=== PATIENT | male | born 1950 | race Caucasian/White ===

== ENCOUNTER → 2017-03-27 | Outpatient (CLI) | payer OTHER ==
[~2017-03-27] MED LIST: AMLO-114 PO; ASPI-435 PO; ATOR-26 PO; CLR10 PO; CYAN1SUB12 PO; FLUT0.15 NAE; GUARPOW2 PO; HOME1TAB18 PO; HYDR-5688 PO; LORA-741 PO; LORA10TA44 PO; MULT-506 PO; OPTIRAY 320 IV PRN; PARO30TA5 PO; POTACAP PO; PRAZ5CAP2 PO; PRLSR20 PO; SYMIN160 INH; TIOTCAP INH; VGR25 PO
--- NOTE | 2017-03-27 11:09 | DIAGNOSTIC IMAGING REPORT ---
CT SCAN OF THE CHEST WITH IV CONTRAST CLINICAL HISTORY: Calcified pleural plaque. Reported history of lymphoma. COMPARISON STUDY: Chest CT scans dated 04/12/2016 and 01/22/2012. PET/CT dated 05/03/2015. TECHNIQUE: Following the IV administration of 92 cc of Optiray 320, CT scan of the thorax was performed from the thoracic inlet to the upper abdomen. Images are reviewed in the axial, sagittal, and coronal planes. IV contrast was administered without complication. CT DOSE: 331.19 mGy.cm FINDINGS: Thyroid: Imaged portions of the thyroid gland are normal in size and attenuation. Thoracic aorta: There is mild atherosclerotic calcification of the thoracic aorta, which is normal in caliber and demonstrates standard 3-vessel arch anatomy. No dissection is seen. Pulmonary vasculature: The pulmonary trunk is dilated, measuring 4.1 cm in diameter. This indicates pulmonary artery hypertension. There are no filling defects identified in the central pulmonary vessels to indicate pulmonary embolus. Note that this examination was not protocoled for evaluation of the pulmonary arteries. Heart: The heart is markedly enlarged and without pericardial effusion. The coronary arteries are densely calcified. Lungs and pleural spaces: Advanced emphysema is observed. The appearance remains typical for round atelectasis. There is no lobar consolidation typical for pneumonia. There are small pleural effusions. Curvilinear densities are again seen at both lung bases, best seen on the right on image #193 and on the left on image #175. Foci of linear scarring are observed. Diffuse peribronchial thickening is noted. The trachea and central airways are clear. No calcified pleural plaque is identified as clinically queried. A 6 mm pulmonary nodule is present in the right middle lobe as seen on image #176. This nodule has been present dating back to 2011. Mediastinum: There is mediastinal lymphadenopathy. Prevascular nodes measure up to 2.3 x 1.3 cm as seen on image #85. A high right paratracheal node on image #38 measures 2.5 x 1.2 cm. This is increased from 04/12/2016. Josselyn: Clear. Axillae: There is bilateral axillary and subpectoral lymphadenopathy. The largest nodes are seen in the left axilla and measure up to 2.8 x 1.6 cm. This has increased from 04/12/2016. Upper abdomen: There is a tiny hiatal hernia. The liver appears steatotic. The spleen is normal in size. There is bulky retroperitoneal lymphadenopathy, only partially imaged and surrounding the upper abdominal aorta and the IVC. Enlarged portacaval nodes measure up to 1.9 x 3.9 cm. Skeletal structures: The skeletal structures appear osteopenic. Mild degenerative change is seen throughout the thoracic spine. No lytic or blastic bony lesions are seen. IMPRESSION: 1. There is progressive axillary, mediastinal, and retroperitoneal lymphadenopathy as compared to 04/12/2016. The appearance is consistent with progression of lymphoma. 2. Severe emphysema. 3. Marked cardiomegaly with evidence of pulmonary artery hypertension. 4. Small pleural effusions. There is no airspace consolidation typical for pneumonia. 5. Curvilinear rounded opacities at both lung bases are unchanged dating back to 2011 and typical in appearance for around atelectasis. 6. A 6 mm right middle lobe pulmonary nodule has been present dating back to 2011. 7. Hepatic steatosis. 8. Additional findings as above. Electronically signed by: Keo Mina M.D. 03/27/2017 11:07 AM Dictated Date/Time: 03/27/2017 10:53 AM
== END | disposition home or self-care (01) ==
LOC: C.CTS 10:24
PROVIDERS: ATTEND Internal Medicine Pulmonary Disease
DX: J44.9 Chronic obstructive pulmonary disease, unspecified (principal); J94.8 Other specified pleural conditions; I51.7 Cardiomegaly

== ENCOUNTER → 2017-05-15 | Outpatient (CLI) | payer OTHER ==
[~2017-05-15] MED LIST changes: -OPTIRAY 320 IV PRN
== END | disposition home or self-care (01) ==
LOC: C.CPL 10:10
PROVIDERS: ATTEND Surgery
DX: R59.0 Localized enlarged lymph nodes (principal)

== ENCOUNTER → 2017-05-18 | Outpatient (CLI) | payer OTHER ==
[~2017-05-18] MED LIST changes: -LORA10TA44 PO
[2017-05-18 12:17] LABS: BASO % 0.9 %; BASO ABS # 0.09 K/uL (0-0.2); COMPLETE YES; EOS % 2.7 %; HEMATOCRIT 40.6 % (42-52); IG% 0.7 %; LYMPH ABS # 1.45 K/uL (1.2-3.4); MEAN CELL VOLUME 85.8 fL (80-100); MEAN CORPUSCULAR HEMOGLOBIN 30.9 pg (25-34); MEAN PLATELET VOLUME 9.8 fL (7.4-10.4); NEUT % 66.7 %; PLATELET COUNT 378 K/uL (130-400); RED BLOOD COUNT 4.73 M/uL (4.7-6.1); WHITE BLOOD COUNT 9.64 K/uL (4.8-10.8)
[2017-05-18 12:32] LABS: BLOOD UREA NITROGEN 5 mg/dl (7-18); BUN/CREATININE RATIO 6.2 (10-20); CALCIUM 8.9 mg/dl (8.5-10.1); CARBON DIOXIDE 25 mmol/L (21-32); CHLORIDE 98 mmol/L (98-107); CREATININE 0.85 mg/dl (0.60-1.40); GLUCOSE 91 mg/dl (70-99); POTASSIUM 4.3 mmol/L (3.5-5.1); SODIUM 132 mmol/L (136-145)
== END | disposition home or self-care (01) ==
LOC: C.LAB 10:33
PROVIDERS: ATTEND Surgery
DX: Z01.812 Encounter for preprocedural laboratory examination (principal); R59.0 Localized enlarged lymph nodes

== ENCOUNTER 2017-05-21 05:17 | Day surgery (SDC) | payer OTHER ==
[2017-05-15 16:22] VITALS: BMI 23.0
[~2017-05-21] VITALS: Ht 172.7 cm; Wt 70.9 kg
[~2017-05-21 05:17] MED LIST changes: -HYDR-5688 PO
[2017-05-21 05:35] VITALS: BP 147/66; PULSE 86; TEMP 36.7; O2SAT 97; Ht 172.7 cm; Wt 70.9 kg
[2017-05-21] MEDS ORDERED: CLINDAMYCIN IV 900 MG in DEXTROSE 5% 100ML 100 ML IV SCH (06:00)
[2017-05-21] MEDS ORDERED: LACTATED RINGER'S 1000ML 1,000 ML IV SCH (06:00)
[2017-05-21] MEDS ORDERED: BUPIVACAINE 0.5 % 5 MG/1 ML MPF 30ML VIAL ONE (06:34)
[2017-05-21] MEDS ORDERED: LIDOCAINE HCL 1% 20 ML VIAL ONE (06:34)
[2017-05-21] MEDS ORDERED: MIDAZOLAM HCL 1 MG/ML 2ML VIAL ONE (06:45)
[2017-05-21] MEDS ORDERED: FENTANYL CITRATE INJ 50 MCG/1 ML 2 ML VIAL ONE (06:45)
[2017-05-21] MEDS ORDERED: LIDOCAINE HCL 2% 2 ML VIAL (20MG/ML) ONE (06:47)
[2017-05-21] MEDS ORDERED: PROPOFOL IV EMULSION 10 MG/ML 20 ML VIAL IV ONE (06:47)
--- NOTE | 2017-05-21 06:53 | History & Physical Bridge Note ---
H&P Re-Evaluation Bridge Note: I have examined the patient, reviewed the History & Physical and in the interval since the performance of the History & Physical I have noted the following changes of clinical significance: No changes noted
[2017-05-21 06:55] VITALS: PULSE 72; O2SAT 97
[2017-05-21] MEDS ORDERED: NURSING VERBAL MED ORDER ONE (07:00)
[2017-05-21] MEDS ORDERED: ALBUT/IPRATROP 3MG/0.5MG NEB 3 ML VIAL INH ONE (07:15)
[2017-05-21] MEDS ORDERED: DEXAMETHASONE SOD INJ 4 MG/ML VIAL ONE (07:34)
[2017-05-21] MEDS ORDERED: ONDANSETRON INJ 2 MG/ML 2 ML VIAL ONE (07:34)
--- NOTE | 2017-05-21 07:43 | [facility] Post Operative Brief Note ---
Immediate Operative Summary Operative Date May 21, 2017. Pre-Operative Diagnosis Bilateral Axillary Lymphadenopathy Post-Operative Diagnosis Bilateral Axillary Lymphadenopathy Procedure(s) Performed Right Axillary Lymph Node Biopsy Surgeon Dr. Ac Button Buttonhole Marker Surgeon(s) Tristin Mata PA-C Estimated Blood Loss 5 mL Findings 3x2 cm LN- low axilla Specimens A: Right Axillary Lymph Node Anesthesia gen Complication(s) None Disposition Recovery Room / PACU
[2017-05-21] MEDS ORDERED: HYDR-5688 PO (07:45)
[2017-05-21] MEDS ORDERED: ONDANSETRON INJ 2 MG/ML 2 ML VIAL IV PRN ×2 (07:45→08:30)
[2017-05-21] MEDS ORDERED: HYDROCODONE/ACETAMOPHEN 5/325MG TAB PO PRN ×2 (07:45)
--- NOTE | 2017-05-21 07:48 | Discharge Instructions ---
Discharge Instructions Date of Service May 21, 2017. Visit Reason for Visit: Right Axillary Lymphadenopathy Discharge Discharge Diagnosis / Problem: lymphadenopathy Discharge Goals Goal(s): Decrease discomfort, Improve function, Improve disease control Activity Recommendations Activity Limitations: as noted below Lifting Limitations: no more than 25 pounds Exercise/Sports Limitations: until after follow-up appointment May Resume Sexual Activity: when tolerated Shower/Bathe: tomorrow Driving or Machine Use: resume 1 day after discharge SPECIAL CARE INSTRUCTIONS: * Cover incisions and change daily for comfort/drainage. * May use ibuprofen for pain as tolerated. * Expect some swelling and bruising. Call your doctor if: * Temperature above 101 degrees * Pain not relieved by pain medicine ordered * There is increased drainage or redness from any incision * You have any unanswered questions or concerns [phone]. FOLLOW UP VISIT: If not already scheduled, please call the office for a follow-up visit. for next week- some suture removal OFFICE PHONE NUMBER: Dr. Ac Office Anesthesia . Post Anesthesia Instructions: If you have had General Anesthesia or IV Sedation: * Do not drive today. * Resume driving when surgeon permits. * Do not make important decisions or sign legal documents today. * Call surgeon for: 1. Temperature elevations greater than 101 degrees F. 2. Uncontrollable pain. 3. Excessive bleeding. 4. Persistent nausea and vomiting. 5. Medication intolerance (nausea, vomiting or rash). * For nausea and vomiting use only clear liquids such as: tea, soda, bouillon until nausea subsides, then gradually increase diet as tolerated. * If you have any concerns or questions, call your surgeon's office. If physician is unavailable and it is an emergency, call 911 or go to the nearest emergency room. . Diet Recommendations Recommended Home Diet: resume previous diet Procedures Procedures Performed: Right Axillary Lymph Node Biopsy Pending Studies Studies pending at discharge: no Medical Emergencies . Who to Call and When: Medical Emergencies: If at any time you feel your situation is an emergency, please call 911 immediately. . Non-Emergent Contact Non-Emergency issues call your: Primary Care Provider, Surgeon . . "Provider Documentation" section prepared by Torres Ac. .
--- NOTE | 2017-05-21 08:25 | Anesthesiology Progress Note ---
Anesthesia Post Op Note Date & Time May 21, 2017 at 08:25 Vital Signs Pain Intensity: 0 Vital Signs Past 12 Hours Date Time Temp Pulse Resp B/P (MAP) Pulse Ox O2 Delivery O2 Flow Rate FiO2 05/21/17 08:20 37.1 79 12 129/77 95 Room Air 05/21/17 08:10 78 20 133/71 92 Room Air 05/21/17 08:00 82 18 141/74 94 Room Air 05/21/17 07:50 83 16 120/66 99 Mask 10 05/21/17 07:42 36.9 68 16 118/69 100 Mask 10 05/21/17 06:55 72 14 97 Room Air 05/21/17 05:35 36.7 86 18 147/66 (93) 97 Room Air Notes Mental Status: alert / awake / arousable, participated in evaluation Pt Amnestic to Procedure: Yes Nausea / Vomiting: adequately controlled Pain: adequately controlled Airway Patency, RR, SpO2: stable & adequate BP & HR: stable & adequate Hydration State: stable & adequate Anesthetic Complications: no major complications apparent
[2017-05-21 08:30] VITALS: BP 141/73; PULSE 80; TEMP 36.4; O2SAT 93
[2017-05-21] MEDS ORDERED: ATROPINE SULFATE 0.1 MG/ML 5ML SYR IV PRN ×2 (08:30→08:45)
[2017-05-21] MEDS ORDERED: EpHEDrine SULFATE INJ 50 MG/ML AMP IV PRN ×2 (08:30→08:45)
[2017-05-21] MEDS ORDERED: FENTANYL CITRATE INJ 50 MCG/1 ML 2 ML VIAL IV PRN ×2 (08:30→08:45)
[2017-05-21 08:55] VITALS: BP 136/91; PULSE 85; O2SAT 91
--- NOTE | 2017-05-21 09:18 | OPERATIVE REPORT ---
DATE OF OPERATION: 05/21/2017 NAME OF OPERATION: Right axillary lymph node biopsy. STAFF SURGEON: Dr. Torres Ac. FULLERETTE: Tristin Mata PA-C ANESTHESIA: General. DESCRIPTION OF PROCEDURE: The patient was brought into the operating room and placed on the operating table in supine position. He underwent general anesthesia via an LMA and then using 0.5% plain Marcaine, skin and subcutaneous tissue in the right axilla were anesthetized. Incision was made in the lower axilla, carrying dissection down and identifying a large lymph node, which was excised from surrounding tissue. The vessels and tissue were ligated using 2-0 silk suture. The lymph node was 3 x 2 cm. It was sent for routine pathology. Deep tissue was reapproximated using 2-0 plain catgut suture and then the skin reapproximated using 5-0 Prolene suture. The patient was transferred to recovery room in stable condition. I attest to the content of the Intraoperative Record and any orders documented therein. Any exception s are noted below.
[2017-05-21 09:20] VITALS: BP 131/68; PULSE 84; TEMP 36.7; O2SAT 84
[2017-05-30 12:14] LABS: NEO FISH AP12/MALT1 t(11;18) See Separate Report; NEO FISH BCL1(CCND)IgH t(11;14 See Separate Report; NEO FISH IgH BCL2 t(14;18) See Separate Report; NEO FISH MALT1 (18q21) See Separate Report
== END 2017-05-21 09:29 | disposition home or self-care (01) ==
LOC: C.ACU 05:17
PROVIDERS: ATTEND Surgery
DX: C85.84 Other specified types of non-Hodgkin lymphoma, lymph nodes of axilla and upper limb (principal); J44.9 Chronic obstructive pulmonary disease, unspecified; I25.10 Atherosclerotic heart disease of native coronary artery without angina pectoris; I10 Essential (primary) hypertension; E78.5 Hyperlipidemia, unspecified; F41.9 Anxiety disorder, unspecified; F32.9 Major depressive disorder, single episode, unspecified; F17.200 Nicotine dependence, unspecified, uncomplicated; Z88.0 Allergy status to penicillin; Z88.2 Allergy status to sulfonamides; Z90.89 Acquired absence of other organs; Z79.82 Long term (current) use of aspirin; Z98.890 Other specified postprocedural states; Z68.23 Body mass index [BMI] 23.0-23.9, adult; Z82.49 Family history of ischemic heart disease and other diseases of the circulatory system

== ENCOUNTER → 2017-11-30 | Outpatient (CLI) | payer OTHER ==
[~2017-11-30] MED LIST changes: -AMLO-114 PO; +AMLO10TA3 PO; +OPTIRAY 320 IV PRN
--- NOTE | 2017-11-30 15:21 | DIAGNOSTIC IMAGING REPORT ---
CT OF THE CHEST WITH IV CONTRAST CLINICAL HISTORY: Lymphoma COMPARISON STUDY: March 27, 2017 TECHNIQUE: Following the IV administration of 92 mL of Optiray-320, CT of the thorax was performed from the thoracic inlet to the lung bases. Images are reviewed in the axial, sagittal, and coronal planes. IV contrast was administered without complication. A dose lowering technique was utilized adhering to the principles of ALARA. CT DOSE: FINDINGS: Thyroid: Imaged portions of the thyroid gland are normal in appearance. Thoracic aorta: The thoracic aorta is normal in course and caliber, noting standard 3-vessel arch anatomy. No aneurysm or dissection is seen. Pulmonary vasculature: The pulmonary trunk is normal in caliber. There are no central filling defects identified to suggest pulmonary embolus. Note that this examination was not protocoled for the evaluation of pulmonary emboli. HEART: There are coronary artery calcifications present. The heart is mildly enlarged. Lungs and pleural spaces: There are small bilateral pleural effusions. There is mild lower lobe bronchiectasis. There is pulmonary emphysema. There are by bilateral lower lobe atelectatic changes. A nodular 23 mm focus in the left lower lobe is felt to represent rounded atelectasis. There is a 6 mm right middle lobe solid pulmonary nodule as visualized in image #205/311. This remain stable. Mediastinum: There is persistent mediastinal lymphadenopathy with enlarged prevascular, subcarinal, and paratracheal lymph nodes. The lymph nodes appear minimally larger than on the preceding study. Josselyn: Hilar lymph nodes remain the upper limits of normal in size Axilla: There is bulky bilateral axillary lymphadenopathy slightly increased when compared the preceding study Upper abdomen: There is a stable 1 cm hypodensity within the left lobe of the liver Skeletal structures: There are no lytic or blastic osseous lesions. IMPRESSION: 1. Slight increase in the bilateral axillary and mediastinal lymphadenopathy 2. Small bilateral pleural effusions 3. Emphysema 4. Bibasilar atelectasis 5. Stable solid 6 mm right middle lobe pulmonary nodule Electronically signed by: Maynor Albright M.D. 11/30/2017 3:19 PM Dictated Date/Time: 11/30/2017 3:10 PM
--- NOTE | 2017-11-30 15:23 | DIAGNOSTIC IMAGING REPORT ---
ABD/PELVIS IV AND ORAL CONT CLINICAL HISTORY: 67 years-old Male presenting with SLL. TECHNIQUE: Multidetector CT of the abdomen and pelvis was performed after the administration of oral and intravenous contrast. IV contrast: 92 mL of Optiray 320. A dose lowering technique was used consistent with the principles of ALARA (as low as reasonably achievable). COMPARISON: PET/CT from 05/03/2015. CT DOSE (mGy.cm): The estimated cumulative dose is 735.75 mGy.cm. FINDINGS: Keg Washer topogram: Unremarkable. Lung bases: Architectural distortion of the left lower lobe with paramediastinal and dependent consolidation and volume loss. Dependent consolidation volume loss also noted in the right lower lobe with possible focal bronchiectasis. This is similar in appearance to prior exam in March and suggestive of rounded atelectasis. Top normal heart size. Coronary artery calcification. Trace bilateral pleural effusions or pleural thickening. No pericardial effusion. Liver: Normal liver morphology. Focal hypodensity at the left hepatic dome, indeterminate but unchanged and likely hepatic cysts. Patent hepatic vasculature. Biliary: No intrahepatic or extrahepatic biliary ductal dilatation. Gallbladder decompressed. Pancreas: Normal. Spleen: Normal. Adrenal glands: Normal. Kidneys and ureters: Normal renal parenchyma. Bilateral extrarenal pelvises. Mild urothelial thickening. No hydronephrosis or hydroureter. No nephrolithiasis. Bladder: Mild circumference of bladder wall thickening. Pelvic organs: Prostate enlargement likely secondary to benign prostatic hyperplasia. Bowel: Normal appendix. No bowel obstruction. Significant gastric wall thickening suggested along the body of the stomach. Peritoneal cavity: No free fluid or intraperitoneal gas. Lymph nodes: Significant retroperitoneal lymphadenopathy with encasement of the aorta, which remains patent. Encasement of the bilateral common iliac arteries. Significant common and external iliac and inguinal lymphadenopathy. Comparing to the noncontrast PET/CT from 2014, this has significantly progressed. This also appears slightly progressed in comparison to the prior chest CT, which partially visualized the upper abdomen. Vasculature: Atherosclerosis of the normal caliber abdominal aorta. IVC narrow. Encasement of the aorta. Venous structures are rather poorly opacified limiting evaluation. The IVC may also be case. Abdominal wall: Small fat-containing umbilical hernia. Musculoskeletal: Degenerative changes of the spine. IMPRESSION: 1. Significant interval progression of diffuse lymphadenopathy since the prior PET/CT in 2014 and suggestion of slight interval progression of disease in comparison to the prior chest CT from March 2017. 2. Significant gastric wall thickening, however, this finding is not significantly different than 2015. This may be due to underdistention or gastritis rather than lymphomatous involvement. 3. Urothelial thickening bilaterally could suggest upper tract involvement of infectious cystitis or chronic reflux/chronic inflammatory change. Bladder wall thickening could also be due to cystitis versus chronic outlet obstruction in the setting of prostatomegaly. Correlate with urinalysis. Electronically signed by: Enio Trejo M.D. 11/30/2017 3:22 PM Dictated Date/Time: 11/30/2017 3:10 PM
== END | disposition home or self-care (01) ==
LOC: C.CTS 14:24
PROVIDERS: ATTEND Internal Medicine Hematology & Oncology
DX: C83.08 Small cell B-cell lymphoma, lymph nodes of multiple sites (principal); J90 Pleural effusion, not elsewhere classified; J43.9 Emphysema, unspecified; R91.1 Solitary pulmonary nodule

== ENCOUNTER 2019-02-04 05:26 | Inpatient (IN) ==
--- NOTE | 2019-01-31 13:25 | Anesthesiology Consultation ---
Date of Service January 31, 2019 Assessment & Plan (1) Encounter for pre-operative examination: Chart Review Chart Review: Acceptable Risk for Surgery and Patient NOT seen in Pre Admission Testing Consults Requested none History Surgery Operation Date: 02/04/19 07:30 Proposed Procedures p Navigational Bronchoscopy with Fiducial Markers and Dye, - Jeremy Myers MD, FACS s Left Upper Lobe Wedge Resection with Frozen Section, Possible Robot Assisted Thoracoscopic Left Upper Lobectomy with Mediastinal Lymphadenectomy - Jeremy Myers MD, FACS Height/Weight Height: 5 ft 8 in Weight: 68.492 kg Allergies Allergy/AdvReac Type Severity Reaction Status Date / Time Penicillins Allergy Mild NECK Verified 01/31/19 10:34 SWELLS, RASH Sulfa (Sulfonamide Allergy Mild RASH Verified 01/31/19 10:34 Antibiotics) Medications Home Medications Medication Instructions Recorded Confirmed Last Taken Spiriva with HandiHaler 1 cap INHALATION [facility] 12/17/18 01/31/19 12/26/18 04:30 Symbicort 2 puff INHALATION BID 12/17/18 01/31/19 12/26/18 04:30 amlodipine 10 mg PO 12/17/18 01/31/19 12/25/18 20:00 aspirin [Aspir-81] 81 mg PO [facility] 12/17/18 01/31/19 12/25/18 13:00 atorvastatin 80 mg PO 12/17/18 01/31/19 12/25/18 20:00 calcium polycarbophil [Fiber 1 tab PO [facility] 12/17/18 01/31/19 12/25/18 13:00 (calcium polycarbophil)] cyanocobalamin (vitamin B-12) 2,500 mcg PO [facility] 12/17/18 01/31/19 12/25/18 13:00 fluticasone [Flonase Allergy 2 spray INTRANASAL [facility] 12/17/18 01/31/19 12/25/18 13:00 Relief] loratadine 10 mg PO [facility] 12/17/18 01/31/19 12/25/18 13:00 lorazepam [Ativan] 0.5 mg PO BID PRN 12/17/18 01/31/19 Unknown multivitamin 1 tab PO [facility] 12/17/18 01/31/19 12/25/18 13:00 omeprazole 40 mg PO QAM 12/17/18 01/31/19 12/25/18 13:00 paroxetine HCl 30 mg PO QAM 12/17/18 01/31/19 12/25/18 13:00 potassium 99 mg PO HS 12/17/18 01/31/19 12/25/18 13:00 prazosin 5 mg PO HS 12/17/18 01/31/19 12/25/18 20:00 tramadol [Ultram] 50 mg PO QID PRN #18 tab 12/26/18 01/31/19 Unknown Past Medical History Medical History ASCVD (arteriosclerotic cardiovascular disease) Anxiety BPH (benign prostatic hyperplasia) CAD (coronary artery disease) Cancer SMALL B-CELL LYMPHOMA CHRONIC LYMPHOCYCTIC LEUKEMIA Chronic obstructive pulmonary disease GERD (gastroesophageal reflux disease) Hyperlipidemia Hypertension Migraine HX Osteoarthritis Post traumatic stress disorder SOB (shortness of breath) on exertion Past Surgical History Surgical History Encounter for biopsy AXILLARY H/O cervical spine surgery PLATES AND SCREWS History of bronchoscopy History of colonoscopy History of tonsillectomy History of tooth extraction Ulnar nerve entrapment SURGERY R/L Social History Smoking Status: Current every day smoker tobacco type: cigarettes Smoking cigarettes per day: 20 CIG DAILY Do You Dip or Chew Tobacco: No Hx Alcohol Use: Yes Alcohol type: beer alcohol intake frequency: 3 or more drinks per day Alcohol Intake Frequency Comment: 18 BEERS DAILY Hx Substance Use: No substance use type: does not use Testing Electrocardiogram Date: 12/12/18 Findings: + ST @ (106) Possible left atrial enlargement. Left axis deviation. When compared with ECG of 05/15/17, no significant change was found. Other Testing CT OF THE CHEST WITH IV CONTRAST 12/03/18 CLINICAL HISTORY: Chronic lymphocytic leukemia COMPARISON STUDY: 11/30/2017 TECHNIQUE: Following the IV administration of 94 mL of Optiray-320, CT of the thorax was performed from the thoracic inlet to the lung bases. Images are reviewed in the axial, sagittal, and coronal planes. IV contrast was administered without complication. A dose lowering technique was utilized adhering to the principles of ALARA. CT DOSE: 260.44 mGy.cm FINDINGS: Thyroid: Imaged portions of the thyroid gland are normal in appearance. Thoracic aorta: The ascending thoracic aorta measures 36 mm diameter. No intimal flaps are visualized. Pulmonary vasculature: The pulmonary trunk is normal in caliber. There are no central filling defects identified to suggest pulmonary embolus. Note that this examination was not protocoled for the evaluation of pulmonary emboli. HEART: There are coronary artery calcifications present. Lungs and pleural spaces: There are small bilateral pleural effusions. There are dependent airspace opacities, likely atelectatic. There is severe pulmonary emphysema. There is an new/enlarging bilobed irregular marginated 14 x 7 mm left upper lobe pulmonary nodule. There is mild associated pleural tenting. Neoplasm must be considered. Pulmonary consultation is recommended in follow-up. A PET/CT scan may be of benefit. In addition there are new nodular airspace opacities within the posterior aspect of the right upper lobe. An inflammatory over neoplastic etiology is favored. This area should be reevaluated on subsequent scans. There is a stable 5 mm right middle lobe pulmonary nodule. There is a new indeterminate solid 6 mm right upper lobe pulmonary nodule. Mediastinum: There is slight interval increase in the pathologic mediastinal lymphadenopathy. An index right paratracheal lymph node currently measures 26 x 16 mm. This previously measured 17 x 15 mm. Josselyn: Hilar lymph nodes are the upper limits of normal in size. Axilla: There is slight increase in the pathologic bilateral axillary lymphadenopathy. An index left axillary lymph node measures 40 x 23 mm. This appears a measured 35 x 18 mm. Upper abdomen: There is a partially visualized upper abdominal lymphadenopathy. Skeletal structures: There are no lytic or blastic osseous lesions. IMPRESSION: 1. Slight increase in the bilateral axillary and mediastinal lymphadenopathy 2. Severe emphysema 3. Persistent basilar atelectasis 4. Persistent small pleural effusions 5. New/enlarging irregular marginated solid bilobed 14 x 7 mm left upper lobe pulmonary nodule, with associated pleural tenting. Neoplasm must be considered. 6. New indeterminate solid 6 mm right upper lobe pulmonary nodule. 7. New nodular airspace opacities within the posterior aspect of the right upper lobe. Although nonspecific and infectious/inflammatory etiology is favored over neoplasm. Imaging follow-up is recommended 8. Pulmonary consultation is recommended, given the new/enlarging irregular marginated 14 x 7 mm left upper lobe pulmonary nodule, and the new solid 6 mm right upper lobe pulmonary nodule. PET/CT scan might be of benefit in follow-up.
[2019-02-04] MEDS ORDERED: LR 15ML/HR IV SCH (06:00)
[2019-02-04] MEDS ORDERED: MIDAZOLAM HCL 1 MG/ML 2ML VIAL ONE ×2 (06:41→07:58)
[2019-02-04] MEDS ORDERED: fentaNYL citrate 100 MCG/2 ML VIAL ONE ×2 (06:42→07:58)
--- NOTE | 2019-02-04 06:59 | History & Physical Bridge Note ---
Date of Service February 04, 2019 History & Physical Bridge Note I have examined the patient, reviewed the History & Physical and in the interval since the performance of the History & Physical I have noted the following changes of clinical significance: no changes noted
[2019-02-04] MEDS ORDERED: BUPIVACAINE LIPOSOME 1.3% 266 MG/20 ML VIAL ONE (07:04)
[2019-02-04] MEDS ORDERED: BUPIVACAINE 0.5 % 5 MG/1 ML MPF 30ML VIAL ONE (07:04)
[2019-02-04] MEDS ORDERED: SODIUM CHLORIDE 0.9% PF 50 ML VIAL ONE (07:04)
[2019-02-04] MEDS ORDERED: ATROPINE SULFATE 0.1 MG/ML 10ML SYR IV PRN (07:40)
[2019-02-04] MEDS ORDERED: KETOROLAC TROMETHAMINE 15 MG/ML VIAL IV PRN (07:40)
[2019-02-04] MEDS ORDERED: ONDANSETRON INJ 2 MG/ML 2 ML VIAL IV PRN ×2 (07:40→13:49)
[2019-02-04] MEDS ORDERED: HYDROmorphone INJ 1 MG/ML SYRINGE IV PRN (07:40)
[2019-02-04] MEDS ORDERED: ALBUTEROL 0.083% NEBU SOLN 3 ML VIAL INH PRN (07:40)
[2019-02-04] MEDS ORDERED: LABETALOL HCL IV 5 MG/ML 20ML IV PRN (07:40)
[2019-02-04] MEDS ORDERED: INDOCYANINE GREEN 25 MG/10 ML INJ ONE (07:42)
[2019-02-04] MEDS ORDERED: CLINDAMYCIN 600 MG in DEXTROSE 5% 50 ML IV SCH (07:45)
[2019-02-04] MEDS ORDERED: PHENYLEPHRINE 100MCG/ML 5ML SYR ONE ×2 (09:26→09:52)
[2019-02-04] MEDS ORDERED: ePHEDrine sulfate 50 MG/ML SYR ONE (09:26)
[2019-02-04] MEDS ORDERED: DEXAMETHASONE SOD INJ 4 MG/ML VIAL ONE (09:26)
[2019-02-04] MEDS ORDERED: ROCURONIUM BROMIDE 10 MG/ML 5 ML VIAL ONE (09:26)
[2019-02-04] MEDS ORDERED: LIDOCAINE HCL 2% 2 ML VIAL/AMP(20MG/ML) INFIL ONE (09:26)
[2019-02-04] MEDS ORDERED: PROPOFOL IV EMULSION 10 MG/ML 20 ML VIAL IV ONE (09:26)
[2019-02-04] MEDS ORDERED: ONDANSETRON INJ 2 MG/ML 2 ML VIAL ONE (09:26)
[2019-02-04] MEDS ORDERED: LARYING-O-JET KIT (LTA) ONE (09:26)
[2019-02-04] MEDS ORDERED: PHENYLEPHRINE HCL 10 MG/ML VIAL ONE (09:27)
[2019-02-04] MEDS ORDERED: GLYCOPYRROLATE 0.2 MG/ML VIAL ONE (10:42)
[2019-02-04] MEDS ORDERED: NEOSTIGMINE METHYLSULFATE 5 MG/5 ML SYR ONE (10:42)
[2019-02-04] MEDS ORDERED: PROGEL PLEURAL AIR LEAK SEALAN 4ML TOP ONE (10:46)
--- NOTE | 2019-02-04 11:20 | Fluoroscopy Report ---
FL chest 1V frontal CLINICAL HISTORY: NAVIGATIONAL BRONCH WITH FIDUCIAL MARKERS COMPARISON STUDY: None FLUOROSCOPY TIME: 28 seconds NUMBER OF FLUOROSCOPIC IMAGES: 2 FINDINGS: Image intensifier assistance for navigational bronchoscopy IMPRESSION: Image intensifier assistance for navigational bronchoscopy. The above report was generated using voice recognition software. It may contain grammatical, syntax or spelling errors. Electronically signed by: Jimmie Kaur M.D. 02/04/2019 11:18 AM
--- NOTE | 2019-02-04 11:43 | Post Operative Brief Note ---
Immediate Post Op Note v1 Date of Surgery February 04, 2019 Pre & Post Diagnosis Operation Date: 02/04/19 07:30 Pre-Op Diagnosis: Left upper lobe mass Post-Op Diagnosis: Non-small cell lung carcinoma Procedure Operation Date: 02/04/19 07:30 Actual Procedures p Navigational Bronchoscopy with Indocyanine dye marking - Jeremy Myers MD, FACS s Thoracoscopic Left Upper Lobe Wedge Resection with Frozen Section, extensive lysis of adhesions(Left) - Jeremy Myers MD, FACS Surgeon Jeremy Myers MD, FACS Long Filler Cigar Roller Machine [employer]az CHÁVEZ Estimated Blood Loss 450 Findings Consistent with Post-Op Diagnosis Drains Chest Tube and Shafer Catheter
[2019-02-04] MEDS ORDERED: METOCLOPRAMIDE HCL INJ 5 MG/ML 2 ML VIAL IV ONE (12:15)
--- NOTE | 2019-02-04 13:13 | XRay Report ---
SINGLE VIEW CHEST CLINICAL HISTORY: Status post left upper lobe wedge resection. FINDINGS: An AP, portable, upright chest radiograph is compared to study dated 12/26/2018 and correlat ed with chest CT dated 12/03/2018. The examination is degraded by portable technique and patient rotati on. The heart is mildly enlarged and there is atherosclerotic calcification of the thoracic aorta. T here is mild congestion of the central pulmonary vasculature. Advanced emphysema and chronic intersti tial thickening are similar to previous. Suture material projects over the left upper lung, and there is volume loss from left-sided pulmonary resection. Patchy airspace consolidation is seen in the lef t midlung and there are small pleural effusions. A chest tube is present at the left apex. There is a trace left apical pneumothorax. The bony thorax is grossly intact. Subcutaneous emphysema is noted i n the left lower neck and along left chest wall. Fusion hardware is noted in the lower cervical spine . IMPRESSION: 1. There is postoperative change and volume loss consistent with left-sided pulmonary resection. 2. A left atypical chest tube is in place. There is a trace left pneumothorax. 3. Cardiomegaly and advanced emphysema. Mild pulmonary vascular congestion is observed. 4. Patchy airspace consolidation is seen in the left midlung and there are small pleural effusions. Electronically signed by: Keo Mina M.D. 02/04/2019 1:11 PM
--- NOTE | 2019-02-04 13:32 | Anesthesiology Progress Note ---
Date of Service February 04, 2019 Anesthesia Post Procedure Vital Signs Vital Signs: Temp Pulse Pulse Resp BP BP Pulse Ox 02/04/19 13:25 94 H 19 114/63 97 02/04/19 13:20 93 H 20 119/63 97 02/04/19 13:15 96 H 17 118/62 97 02/04/19 13:10 94 H 20 115/61 97 02/04/19 13:05 100 H 14 111/63 96 02/04/19 13:01 36.6 C 97 02/04/19 13:00 96 H 15 118/61 97 02/04/19 12:55 92 H 19 123/63 97 02/04/19 12:50 92 H 20 115/62 97 02/04/19 12:45 92 H 20 122/61 98 02/04/19 12:40 93 H 19 109/56 L 92 02/04/19 12:35 92 H 23 99/63 L 92 02/04/19 12:30 94 H 18 101/55 L 92 02/04/19 12:25 95 H 22 103/59 L 97 02/04/19 12:20 96 H 21 98/59 L 98 02/04/19 12:15 97 H 22 98/62 L 98 02/04/19 12:10 99 H 18 94/51 L 100 02/04/19 12:08 100 H 22 78/50 L 96 02/04/19 12:06 101 H 20 77/51 L 96 02/04/19 06:33 36.9 C 83 18 143/78 H 93 Pain Intensity Left Chest: Pain Intensity: 0 Notes Mental Status: alert / awake / arousable Patient Amnestic to Procedure: Yes Nausea / Vomiting: adequately controlled Pain: adequately controlled Airway Patency, RR, SpO2: stable & adequate BP & HR: stable & adequate Hydration State: stable & adequate Anesthetic Complications: no major complications apparent
[2019-02-04] MEDS ORDERED: LORazepam 1 MG/2 ML VIAL IV PRN (13:49)
[2019-02-04] MEDS ORDERED: MoRPHine SULFATE 2 MG/ML CARP IV PRN (13:49)
[2019-02-04] MEDS ORDERED: chlordiazePOXIDE ALCOHOL WITHDRAWL 25MG PO STA (15:46)
[2019-02-04] MEDS: D5W AND 1/2NSS 1,000 ML IV SCH (16:36)
[2019-02-04] MEDS: ACETAMINOPHEN 1,000 MG/100 ML VIAL IV SCH ×2 (16:38→21:50)
[2019-02-04] MEDS: METOCLOPRAMIDE HCL INJ 5 MG/ML 2 ML VIAL IV SCH ×2 (16:39→21:51)
[2019-02-04] MEDS: chlordiazePOXIDE HCl 25 MG CAP PO SCH ×2 (16:42→21:50)
[2019-02-04] MEDS: BEER 1 CAN PO SCH (20:23)
[2019-02-04] MEDS: ATORVASTATIN 40 MG TAB PO SCH (20:24)
[2019-02-04] MEDS: DOCUSATE SODIUM 100 MG CAP PO SCH (20:24)
[2019-02-04] MEDS: AMLODIPINE BESYLATE 5 MG TAB PO SCH (20:25)
[2019-02-04] MEDS: PRAZOSIN HCL 1 MG CAP PO SCH (20:26)
[2019-02-04] MEDS: BUDESONIDE/FORMOTEROL FUMARATE 160/4.5 60 PUFFS/INHALER INH SCH (20:28)
[2019-02-04] MEDS ORDERED: NON-FORMULARY MEDICATION (Potassium 99 MG) PO SCH (21:00)
--- NOTE | 2019-02-05 | Operative Report ---
DATE OF OPERATION: 02/04/2019 PREOPERATIVE DIAGNOSES: 1. Hypermetabolic mass, left upper lobe. 2. Small cell leukemia. 3. A very small cell lymphoma. 4. Active cigarette smoking POSTOPERATIVE DIAGNOSES: 1. Non-small cell carcinoma left upper lobe. 2. Small cell lymphoma, although input for: 3. Active cigarette smoking. PROCEDURES: 1. Electromagnetic navigational bronchoscopy with marking of left upper lobe mass with indocyanine green dye. 2. Left thoracoscopy with extensive decortication. 3. Wedge resection, left upper lobe mass. SURGEON: Jeremy Myers MD OCCUPATIONAL NURSE: KYLER Chauhan (Truman Hansel was present for the entire case and was instrumental holding the instruments). ANESTHESIA: General anesthesia with endotracheal intubation using double lumen tube. INDICATIONS OF PROCEDURE AND FINDINGS: Yordan Lomas is an interesting 69-year-old with a known history of lymphoma and active cigarette smoking and alcohol use who presented with hypermetabolic mass in his left upper lobe, which was concerning. We had a long talk about this at our multidisciplinary cancer conference and elected to proceed with a mediastinoscopy, which I performed back in 12/26/2018 which showed no evidence of carcinoma, although he did have the small cell lymphoma. The patient continues to smoke and also has chronic sinus drainage. I saw him, but rather than proceed with the surgery, he have a couple of weeks of antibiotics and steroids and the sinus has cleared up nicely. He was seen by Yamileth Quinn PA-C. I brought him into the operating room today on 02/04/2019 with the intention of doing a navigational bronchoscopy with marking using ICG dye and then doing a robotic wedge resection guided by the ICG dye and fluorescence. Unfortunately, the patient had such adhesions, we did not do this. Upon opening the chest, it was extremely difficult to even get in. We also had some holes in the lung. This was an arduous 2 hours to take down adhesions and we finally were able to do this. I wedged out a portion of the upper lobe and actually had a portion of the lower lobe with it as well as another portion of the upper lobe to control an air leak. We lost about 450 mL of blood from oozing from both the lung injuries and the chest wall. Frozen section showed this to be a small focus of non-small cell lung carcinoma. We had clean margins. We had already been working for 3 hours. I did not think that doing a lobectomy was going to be in the patient's best interest. He was having some issues with his pressure and was on vasopressors. I elected to stop after the wedge resection. We did an Exparel block and left the chest tube, There was a moderate air leak. He was extubated in the room without difficulty. DESCRIPTION OF PROCEDURE: The patient brought to operating room and laid in supine position. General anesthesia induced. Endotracheal intubation was performed with a single lumen tube. After that had been positioned, I placed the fiberoptic bronchoscope down and closely inspected each of the airways and suctioned out some whitish sputum. We then put the navigational probe down and then registered all of his airways. I then went down into the right upper lobe and went out to this area and injected 1 mL of ICG dye with 1 mL of air. We then removed this without difficulty. This only took a few minutes. He was then switched over to a double lumen tube and we turned him into the right lateral decubitus position. He had been given prophylactic antibiotics prior to starting. After another timeout had been called (one had been called before our bronchoscopy). We then prepared him for surgery. Using a 5-mm port just anterior to mid axillary line about the eighth interspace, I entered the chest cavity with a 5 mm port, and upon placing the scope, it could be seen that we had gone into the lung. I carefully dissected this out as I was able to get into a small plane with the camera and made a small space. I then made my port site just big enough for a thin Kitner and I was able to take down some of the adhesions around this. I finally got enough freed up so, I was able to get a second port in about 10 cm lateral and with these 2 I was able to take down these adhesions, although it was extremely arduous. The lung was markedly adherent to the chest wall. I finally was able to take down all the adhesion, but this took a good 2 hours and it oozed from both the parenchymal tears as well as the chest wall despite our attempts with controlled bleeding with cautery and with packs. Finally able to separate the lobes. We did not use the ICG dye as we did not have the fluorescence on the thoracoscope and I did not want to cut the robot as we had already done so much just thoracoscopically. I finally just wedged out a large section of the upper lobe as well as a smaller segment of the joining lower lobe and then another segment of the upper lobe to control an air leak. We then delivered this off the field using an Endobag. While waiting for this, we performed an Exparel block using 266 mg of Exparel with 30 mL of 0.25% bupivacaine and 250 mL of normal saline. The solution has been used to inject each of the 4 port sites as we had made another port site down closer to the diaphragm more posteriorly and another more anteriorly. After placing these ports, we were able to take all of these adhesions down and do the stapling. The Exparel was then used to perform a block from the second to eleventh interspace although the pleura was so thick it was difficult. We controlled all bleeding at this time and there was a moderate air leak. This is due more to denuded areas and not really an area we could repair. We did inject Progel over all of these areas. When the frozen section came back as a non-small cell lung carcinoma, we had clean margins. I elected to stop given the difficulties, which had beset us and the fact that he has already been on the table for more than 3 hours. The 24-Divehi chest tube was placed in the anterior thoracoscopy port and directed towards the apex and sutured with heavy silk suture. The larger ports and the muscle layers closed with 0 Vicryl and 4-0 Monocryl was used in running subcuticular fashion to approximate the wound edges. He was extubated in the room and tolerated it well. I attest to the content of the Intraoperative Record and any orders documented therein. Any exceptions are noted below. LIBBYD
[2019-02-05] MEDS: D5W AND 1/2NSS 1,000 ML IV SCH (01:48)
[2019-02-05] MEDS: chlordiazePOXIDE HCl 25 MG CAP PO SCH ×3 (03:29→16:21)
[2019-02-05] MEDS: METOCLOPRAMIDE HCL INJ 5 MG/ML 2 ML VIAL IV SCH (06:00)
[2019-02-05] MEDS: ACETAMINOPHEN 1,000 MG/100 ML VIAL IV SCH ×2 (06:00→13:59)
[2019-02-05 06:18] LABS: Basophils # (auto) 0.02 K/uL (0-0.2); Basophils % (auto) 0.2 %; Eosinophils # (auto) 0.02 K/uL (0-0.5); Eosinophils % (auto) 0.2 %; Hemoglobin 8.9 g/dL (14.0-18.0); Immature Granulocytes # (auto) 0.05 K/uL (0.00-0.02); Immature Granulocytes % (auto) 0.4 %; Lymphocytes # (auto) 1.68 K/uL (1.2-3.4); Lymphocytes % (auto) 15.1 %; Mean Corpuscular Volume 82.1 fL (80-100); Monocytes # (auto) 1.24 K/uL (0.11-0.59); Monocytes % (auto) 11.1 %; Neutrophils # (auto) 8.15 K/uL (1.4-6.5); Platelet Count 324 K/uL (130-400); RDW Coefficient of Variation 15.1 % (11.5-14.5); RDW Standard Deviation 44.9 fL (36.4-46.3); Red Blood Count 3.29 M/uL (4.7-6.1); White Blood Count 11.16 K/uL (4.8-10.8)
[2019-02-05 06:35] LABS: BUN Creatinine Ratio 13.8 (10-20); Calcium 7.6 mg/dl (8.5-10.1); Creatinine Clr Calc Pharmacy 87.1 ml/min; Est GFR (African American) 109.2; Est GFR (Non-African American) 94.3; Potassium 3.8 mmol/L (3.5-5.1)
[2019-02-05 06:41] LABS: Prothrombin Time 10.3 Seconds (9.0-12.0)
[2019-02-05 07:05] LABS: RBC Morphology Unremarkable
--- NOTE | 2019-02-05 07:17 | XRay Report ---
XR chest 1V portable CLINICAL HISTORY: JANNETH wedge resection COMPARISON STUDY: 02/04/2019 FINDINGS: There is increasing left-sided subcutaneous emphysema. A left-sided chest tube is again vis ualized. There is a 5 mm left apical pneumothorax. There are mild left mid and lower lung zone airspa ce opacities. There is small right pleural effusion. There is no focal parenchymal consolidation on t he right. There are postsurgical changes in the lower cervical spine.[ IMPRESSION: 1. Increasing left-sided subcutaneous emphysema 2. 5 mm left apical pneumothorax 3. Persistent left mid and lower lung zone airspace opacities 4. Small right pleural effusion Electronically signed by: Maynor Albright M.D. 02/05/2019 7:16 AM
[2019-02-05] MEDS: BEER 1 CAN PO SCH ×5 (08:29→20:26)
[2019-02-05] MEDS: CYANOCOBALAMIN 500 MCG TABLET (VITAMIN B-12) PO SCH (08:30)
[2019-02-05] MEDS: ASPIRIN 81 MG ECTAB PO SCH (08:30)
[2019-02-05] MEDS: PANTOprazole 40 MG TAB PO SCH (08:30)
[2019-02-05] MEDS: MULTIVITAMIN TAB PO SCH (08:30)
[2019-02-05] MEDS: CALCIUM POLYCARBOPHIL 625MG TAB PO SCH (08:30)
[2019-02-05] MEDS: DOCUSATE SODIUM 100 MG CAP PO SCH ×2 (08:30→20:28)
[2019-02-05] MEDS: FOLIC ACID 1 MG TAB PO SCH (08:31)
[2019-02-05] MEDS: LORATADINE 10 MG TAB PO SCH (08:31)
[2019-02-05] MEDS: PARoxetine HCl 20 MG TAB PO SCH (08:31)
[2019-02-05] MEDS: THIAMINE HCL 100 MG TAB PO SCH (08:31)
[2019-02-05] MEDS: FLUTICASONE PROPIONATE NA SPR 16 GM BTL SCH (08:32)
[2019-02-05] MEDS: BUDESONIDE/FORMOTEROL FUMARATE 160/4.5 60 PUFFS/INHALER INH SCH ×2 (08:34→20:30)
[2019-02-05] MEDS: TIOTROPIUM BROMIDE 5 PUFF/90 MCG INH INH SCH (08:35)
[2019-02-05] MEDS: ENOXAPARIN INJ 40 MG/0.4 ML SYR SQ SCH (08:40)
--- NOTE | 2019-02-05 11:26 | Anesthesiology Progress Note ---
Date of Service February 05, 2019 Anesthesia Post Procedure Vital Signs Vital Signs: Temp Pulse Pulse Resp BP BP BP 02/05/19 07:56 36.6 C 84 18 105/61 02/05/19 07:39 36.7 C 86 18 110/66 02/05/19 06:03 02/05/19 03:48 37.0 C 84 18 117/64 02/05/19 01:45 37.0 C 86 18 108/61 02/04/19 23:40 37.0 C 89 16 96/51 L 02/04/19 21:52 37.0 C 96 H 17 99/52 L 02/04/19 19:45 37.1 C 91 H 18 115/63 02/04/19 18:50 99 H 18 119/66 02/04/19 16:45 36.8 C 93 H 14 99/62 L 02/04/19 15:45 37.0 C 98 H 12 114/68 02/04/19 15:00 36.6 C 110 H 14 99/63 L 02/04/19 14:23 36.4 C L 98 H 14 116/67 02/04/19 13:25 94 H 19 114/63 02/04/19 13:20 93 H 20 119/63 02/04/19 13:15 96 H 17 118/62 02/04/19 13:10 94 H 20 115/61 02/04/19 13:05 100 H 14 111/63 02/04/19 13:01 36.6 C 02/04/19 13:00 96 H 15 118/61 02/04/19 12:55 92 H 19 123/63 02/04/19 12:50 92 H 20 115/62 02/04/19 12:45 92 H 20 122/61 02/04/19 12:40 93 H 19 109/56 L 02/04/19 12:35 92 H 23 99/63 L 02/04/19 12:30 94 H 18 101/55 L 02/04/19 12:25 95 H 22 103/59 L 02/04/19 12:20 96 H 21 98/59 L 02/04/19 12:15 97 H 22 98/62 L 02/04/19 12:10 99 H 18 94/51 L 02/04/19 12:08 100 H 22 78/50 L 02/04/19 12:06 101 H 20 77/51 L Pulse Ox 02/05/19 07:56 97 02/05/19 07:39 94 02/05/19 06:03 92 02/05/19 03:48 94 02/05/19 01:45 94 02/04/19 23:40 93 02/04/19 21:52 91 02/04/19 19:45 93 02/04/19 18:50 97 02/04/19 16:45 96 02/04/19 15:45 97 02/04/19 15:00 94 02/04/19 14:23 95 02/04/19 13:25 97 02/04/19 13:20 97 02/04/19 13:15 97 02/04/19 13:10 97 02/04/19 13:05 96 02/04/19 13:01 97 02/04/19 13:00 97 02/04/19 12:55 97 02/04/19 12:50 97 02/04/19 12:45 98 02/04/19 12:40 92 02/04/19 12:35 92 02/04/19 12:30 92 02/04/19 12:25 97 02/04/19 12:20 98 02/04/19 12:15 98 02/04/19 12:10 100 02/04/19 12:08 96 02/04/19 12:06 96 Pain Intensity Left Chest: Pain Intensity: 0 Notes Mental Status: alert / awake / arousable and participated in evaluation Patient Amnestic to Procedure: Yes Nausea / Vomiting: adequately controlled Pain: adequately controlled Airway Patency, RR, SpO2: stable & adequate BP & HR: stable & adequate Hydration State: stable & adequate Anesthetic Complications: no major complications apparent
--- NOTE | 2019-02-05 19:32 | Progress Note ---
DATE: 02/05/2019 Mr. Lomas is seen one day status post an extremely difficult case. We did a thoracoscopic lysis of adhesions, a wedge resection of a non-small cell left upper lobe cancer. His x-ray looks good except for the fact that he has had some subcutaneous emphysema; however, he has a fairly significant air leak, which is much smaller today. He does have a fluctuation in his tube and his tube appears to be working. He denies pain. He looks quite good. He is drinking a beer on occasion here under our orders as the patient drinks 3-6 packs a day and he has been doing so for many years. At this point, he is ambulating in the hallway. He does have some subcutaneous emphysema and a nasal twang to his voice due to this, but I think this will resolve when his air leak resolves. The final pathology is still pending, but it appears our margins are negative.
[2019-02-05] MEDS: OXYCODONE HCL IR 5 MG TAB (IMMEDIATE RELEASE) PO PRN (20:16)
[2019-02-05] MEDS: ATORVASTATIN 40 MG TAB PO SCH (20:28)
[2019-02-05] MEDS: AMLODIPINE BESYLATE 5 MG TAB PO SCH (20:29)
[2019-02-05] MEDS: PRAZOSIN HCL 1 MG CAP PO SCH (20:29)
[2019-02-05] MEDS: ACETAMINOPHEN 325 MG TAB PO SCH (21:26)
[2019-02-06] MEDS: chlordiazePOXIDE HCl 25 MG CAP PO SCH ×2 (00:06→08:53)
[2019-02-06] MEDS: ACETAMINOPHEN 325 MG TAB PO SCH ×4 (04:30→21:39)
--- NOTE | 2019-02-06 07:21 | XRay Report ---
XR chest 1V portable CLINICAL HISTORY: Left upper lobe wedge resection COMPARISON STUDY: 02/05/2019 FINDINGS: Left-sided chest tube remains unchanged in position. There is a persistent 6 mm left apical pneumothorax. There is increasing subcutaneous emphysema. There is a persistent small right pleural effusion. Minor left mid and lower lung zone airspace opacities persist.[ IMPRESSION: Slight interval increase in the subcutaneous emphysema. Persistent 6 mm left apical pneum othorax. Electronically signed by: Maynor Albright M.D. 02/06/2019 7:20 AM
[2019-02-06] MEDS: OXYCODONE HCL IR 5 MG TAB (IMMEDIATE RELEASE) PO PRN (08:53)
[2019-02-06] MEDS: PANTOprazole 40 MG TAB PO SCH (08:54)
[2019-02-06] MEDS: CALCIUM POLYCARBOPHIL 625MG TAB PO SCH (08:54)
[2019-02-06] MEDS: CYANOCOBALAMIN 500 MCG TABLET (VITAMIN B-12) PO SCH (08:54)
[2019-02-06] MEDS: THIAMINE HCL 100 MG TAB PO SCH (08:54)
[2019-02-06] MEDS: MULTIVITAMIN TAB PO SCH (08:54)
[2019-02-06] MEDS: PARoxetine HCl 20 MG TAB PO SCH (08:54)
[2019-02-06] MEDS: DOCUSATE SODIUM 100 MG CAP PO SCH ×2 (08:54→20:30)
[2019-02-06] MEDS: BEER 1 CAN PO SCH ×4 (08:54→20:23)
[2019-02-06] MEDS: LORATADINE 10 MG TAB PO SCH (08:54)
[2019-02-06] MEDS: ASPIRIN 81 MG ECTAB PO SCH (08:54)
[2019-02-06] MEDS: BUDESONIDE/FORMOTEROL FUMARATE 160/4.5 60 PUFFS/INHALER INH SCH ×2 (08:55→20:32)
[2019-02-06] MEDS: FLUTICASONE PROPIONATE NA SPR 16 GM BTL SCH (08:55)
[2019-02-06] MEDS: FOLIC ACID 1 MG TAB PO SCH (08:55)
[2019-02-06] MEDS: TIOTROPIUM BROMIDE 5 PUFF/90 MCG INH INH SCH (08:55)
[2019-02-06] MEDS: ENOXAPARIN INJ 40 MG/0.4 ML SYR SQ SCH (08:55)
--- NOTE | 2019-02-06 15:57 | Progress Note ---
DATE: 02/06/2019 Mr. Lomas was seen today. He has a bit more subcutaneous emphysema, but I really do not see an air leak and he has good fluctuation in his tube. He is ambulating in the hallway. His vital signs are stable. His pathology is still pending. Quite frankly, I am pleased with him. He has done very well and my hope is that we will get him out of the hospital in the near future.
[2019-02-06] MEDS: NICOTINE 14 MG/24 HR PATCH TD SCH (16:42)
[2019-02-06] MEDS: AMLODIPINE BESYLATE 5 MG TAB PO SCH (20:31)
[2019-02-06] MEDS: PRAZOSIN HCL 1 MG CAP PO SCH (20:31)
[2019-02-06] MEDS: ATORVASTATIN 40 MG TAB PO SCH (20:31)
[2019-02-07] MEDS: ACETAMINOPHEN 325 MG TAB PO SCH ×3 (04:33→15:57)
--- NOTE | 2019-02-07 07:19 | XRay Report ---
XR chest 1V portable CLINICAL HISTORY: 69 years-old Male presenting with lung resection. TECHNIQUE: Portable upright AP view of the chest was obtained. COMPARISON: 02/06/2019. FINDINGS: Large bore left pleural drain remains positioned at the paramediastinal left midlung. Atherosclerosis of the aortic arch. Cardiac silhouette normal in size. The previously noted trace left apical pneumo thorax is minimally apparent with a pleural separation of less than 4 mm, previously 6 mm. Redemonstr ation of extensive soft tissue emphysema primarily along the left chest wall and extending into the b ilateral base of the neck. Persistent pleural thickening or pleural fluid on the right. Lungs are ebla ssly clear with a suture margin noted in the left midlung. Degenerative changes of the thoracic spine . IMPRESSION: 1. Slight decrease size of the trace left apical pneumothorax. Left pleural drain remains in place. 2. Postsurgical changes of the left lung. 3. Persistent extensive soft tissue emphysema. Electronically signed by: Enio Trejo M.D. 02/07/2019 7:18 AM
[2019-02-07 07:33] LABS: Hematocrit (blood only) 25.1 % (42-52); Hemoglobin 8.4 g/dL (14.0-18.0); Mean Corpuscular Hgb Conc 33.5 g/dL (32-36); Mean Corpuscular Volume 82.3 fL (80-100); Mean Platelet Volume 9.2 fL (7.4-10.4); Platelet Count 362 K/uL (130-400); RDW Coefficient of Variation 15.5 % (11.5-14.5); RDW Standard Deviation 45.5 fL (36.4-46.3); Red Blood Count 3.05 M/uL (4.7-6.1); White Blood Count 9.91 K/uL (4.8-10.8)
[2019-02-07 08:08] LABS: Creatinine Clr Calc Pharmacy 123.2 ml/min; Est GFR (Non-African American) 108.7
[2019-02-07] MEDS: ENOXAPARIN INJ 40 MG/0.4 ML SYR SQ SCH (08:28)
[2019-02-07] MEDS: DOCUSATE SODIUM 100 MG CAP PO SCH (08:29)
[2019-02-07] MEDS: CALCIUM POLYCARBOPHIL 625MG TAB PO SCH (08:29)
[2019-02-07] MEDS: ASPIRIN 81 MG ECTAB PO SCH (08:29)
[2019-02-07] MEDS: PARoxetine HCl 20 MG TAB PO SCH (08:29)
[2019-02-07] MEDS: FOLIC ACID 1 MG TAB PO SCH (08:29)
[2019-02-07] MEDS: CYANOCOBALAMIN 500 MCG TABLET (VITAMIN B-12) PO SCH (08:30)
[2019-02-07] MEDS: MULTIVITAMIN TAB PO SCH (08:30)
[2019-02-07] MEDS: TIOTROPIUM BROMIDE 5 PUFF/90 MCG INH INH SCH (08:30)
[2019-02-07] MEDS: BUDESONIDE/FORMOTEROL FUMARATE 160/4.5 60 PUFFS/INHALER INH SCH (08:30)
[2019-02-07] MEDS: LORATADINE 10 MG TAB PO SCH (08:30)
[2019-02-07] MEDS: THIAMINE HCL 100 MG TAB PO SCH (08:30)
[2019-02-07] MEDS: FLUTICASONE PROPIONATE NA SPR 16 GM BTL SCH (08:30)
[2019-02-07] MEDS: PANTOprazole 40 MG TAB PO SCH (08:30)
[2019-02-07] MEDS: NICOTINE 14 MG/24 HR PATCH TD SCH (08:31)
[2019-02-07] MEDS: BEER 1 CAN PO SCH ×3 (08:37→15:57)
--- NOTE | 2019-02-07 12:06 | XRay Report ---
XR chest 2V routine HISTORY: Chest tube removal COMPARISON: Chest 02/07/2019. FINDINGS: Interval removal of the left-sided chest tube. A tiny left apical pneumothorax persists. Th is demonstrates a maximal pleural gap of 4 mm. This remains unchanged. Extensive left chest and neck base subcutaneous emphysema persists. Suspect trace pneumomediastinum, unchanged. Suture material wit hin the left lung. Hazy airspace opacity within the left mid to lower lung zone remains unchanged. Tr kushal bilateral pleural effusions. The heart is stable in size. IMPRESSION: 1. Removal of the left-sided chest tube. Tiny left apical pneumothorax persists. 2. Subcutaneous emphysema and trace pneumomediastinum, unchanged. 3. Left mid to lower lung zone hazy airspace opacities also unchanged. This could be due to the posto perative change. Electronically signed by: Edwin Gant M.D. 02/07/2019 12:04 PM
[2019-02-07] MEDS ORDERED: chlordiazePOXIDE HCl 5 MG CAP PO SCH (16:00)
--- NOTE | 2019-02-08 03:32 | Discharge Summary ---
DISCHARGE DIAGNOSES: 1. Non-small cell carcinoma, left upper lobe. 2. History of small cell lymphoma. HOSPITAL COURSE: Yordan Lomas is a very nice 69-year-old active smoker and drinker, who presented with a hypermetabolic mass in his peripheral left upper lobe. He was presented at our multidisciplinary cancer conference and I performed a mediastinoscopy which showed no evidence of carcinoma, although he did have evidence of a quite indolent small cell lymphoma. After a long discussion, we elected to proceed with resection. On 02/04/2019, we took the patient to the operating room and he was an extremely difficult case. I did a robotic lysis of adhesions, which was extremely difficult. I was then able to find the mass and wedge it out. Frozen section showed it to be 2 small foci of cancer, but the margins were negative. I did send off a few lymph nodes. I made a decision at the time as the case had gone on much longer than anticipated and I was a bit concerned about him requiring pressors at the head of the table that I elected to proceed with stopping. I explained this to the patient and his . I explained that I would prefer to have done a full lobectomy, but I did not think at that time that he would tolerate it well. The patient did very well after surgery. He had some significant air leaks, but these resolved. It should be noted he had a large air leak in the mid portion of his left upper lobe just above the fissure which was injured during the takedown of adhesions. I stapled across this to reduce the air leak and removed a wedge of the more medial upper lobe. The patient's incision was clean. He did have some subQ emphysema as expected, but ultimately his subcutaneous emphysema improved and his leak stopped. We removed his chest tube on postop day 3 and discharged him home. I will see him back in 72 hours with an x-ray. Wound care instructions were given. It should be noted that we did give the patient beer. He has drinking three 6 packs a day for the last several years without stopping and we did not want him to go through DTs. I must say I was impressed with how well he did. He was on room air quite quickly. He had very little pain. He did drink his beer and he was quite eager to have a cigarette as he stated quite frankly he could not stop smoking. At any rate, we discharged him home. After his discharge, I went and reviewed his specific slides with Dr. Maira Blake from pathology. I was quite surprised to see that he had a separate foci of carcinoma in the wedge I removed to control the air leak which was several centimeters away from our original biopsy site and appeared to be much more anterior than what was hypermetabolic on the PET scan. It was also larger which was surprising. These cancers appear to be the same but it is still a question about exactly what type. It is definitely a non-small cell, but it may well just be a poorly differentiated squamous cell carcinoma. I did not discuss this with the patient as he was already gone when I reviewed his pathology results with Dr. Blake. I will discuss this with him next week in the office. I am going to present him at our cancer conference, but it is unclear to me whether we should go back and offer him a left upper lobectomy or simply treat him with radiation. It should be noted that the staple line was positive. It is a difficult case as he is at least a T3 as these were definitely separate tumors. I am also concerned that despite the fact we saw no evidence of any other hypermetabolic areas, that he may well have metastatic disease. I will discuss this with the medical oncologist and radiation therapist. NEFTALY
== END 2019-02-07 17:00 | disposition home or self-care (01) | DRG 164 ==
LOC: ASU 05:26 → 3W 12:00

== ENCOUNTER 2019-02-18 06:00 | Inpatient (IN) ==
--- NOTE | 2019-02-12 10:56 | Anesthesiology Consultation ---
Date of Service February 12, 2019 Assessment & Plan (1) Encounter for pre-operative examination: Chart Review Chart Review: Acceptable Risk for Surgery and Patient NOT seen in Pre Admission Testing Consults Requested none History Surgery Operation Date: 02/18/19 07:30 Proposed Procedures p Left Robotic Video Assisted Thoracoscopy with Left Upper Lobectomy and Mediastinal Lymphadenectomy - Jeremy Myers MD, FACS Height/Weight Height: 5 ft 8 in Weight: 68.492 kg Allergies Allergy/AdvReac Type Severity Reaction Status Date / Time Penicillins Allergy Intermediate NECK Verified 02/11/19 11:19 SWELLS, RASH Sulfa (Sulfonamide Allergy Mild RASH Verified 02/11/19 11: Antibiotics) Medications Home Medications Medication Instructions Recorded Confirmed Last Taken Spiriva with HandiHaler 1 cap INHALATION [facility] 12/17/18 02/11/19 02/04/19 05:00 Symbicort 2 puff INHALATION BID 12/17/18 02/11/19 02/04/19 05:00 amlodipine 10 mg PO HS 12/17/18 02/11/19 02/03/19 20:30 aspirin [Aspir-81] 81 mg PO [facility] 12/17/18 02/11/19 02/03/19 12:00 atorvastatin 80 mg PO 12/17/18 02/11/19 02/03/19 12:00 calcium polycarbophil [Fiber 1 tab PO [facility] 12/17/18 02/11/19 02/03/19 09:00 (calcium polycarbophil)] cyanocobalamin (vitamin B-12) 2,500 mcg PO QA 12/17/18 02/11/19 02/03/19 12:00 fluticasone propionate [Flonase 2 spray INTRANASAL [facility] 12/17/18 02/11/19 02/03/19 12:00 Allergy Relief] loratadine 10 mg PO QAM 12/17/18 02/11/19 02/03/19 12:00 lorazepam [Ativan] 0.5 mg PO BID PRN 12/17/18 02/11/19 02/03/19 05:00 multivitamin 1 tab PO QAM 12/17/18 02/11/19 02/03/19 12:00 omeprazole 40 mg PO QA 12/17/18 02/11/19 02/04/19 05:00 paroxetine HCl 30 mg PO QAM 12/17/18 02/11/19 02/03/19 05:00 potassium 99 mg PO HS 12/17/18 02/11/19 02/03/19 12:00 prazosin 5 mg PO HS 12/17/18 02/11/19 02/03/19 20:30 tramadol [Ultram] 50 mg PO QID PRN #18 tab 12/26/18 02/11/19 Unknown Past Medical History Medical History ASCVD (arteriosclerotic cardiovascular disease) Anxiety BPH (benign prostatic hyperplasia) CAD (coronary artery disease) Cancer SMALL B-CELL LYMPHOMA CHRONIC LYMPHOCYCTIC LEUKEMIA Chronic obstructive pulmonary disease GERD (gastroesophageal reflux disease) Hyperlipidemia Hypertension Migraine HX Osteoarthritis Post traumatic stress disorder SOB (shortness of breath) on exertion Past Surgical History Surgical History Encounter for biopsy AXILLARY H/O cervical spine surgery PLATES AND SCREWS History of bronchoscopy History of colonoscopy History of lung surgery LEFT WEDGE RESECTION History of tonsillectomy History of tooth extraction Ulnar nerve entrapment SURGERY R/L Social History Smoking Status: Current every day smoker tobacco type: cigarettes Smoking cigarettes per day: 20 CIG DAILY Do You Dip or Chew Tobacco: No Hx Alcohol Use: Yes Alcohol type: beer alcohol intake frequency: 3 or more drinks per day Alcohol Intake Frequency Comment: 18 BEERS DAILY Hx Substance Use: No substance use type: does not use Testing Electrocardiogram Date: 12/12/18 Findings: + ST @ (106 bpm) left axis deviation Chest X-Ray Date: 02/10/19 1. Trace left pneumothorax, decreased in size since prior exam. 2. Persistent subcutaneous gas within the left chest wall and neck. Suspected pneumomediastinum. 3. Small bilateral pleural effusions. 4. Persistent left midlung airspace opacity. Laboratory Results Laboratory Tests 02/05/19 02/05/19 02/07/19 06:07 06:07 06:56 WBC 9.91 Hgb 8.4 L Plt Count 362 PT 10.3 INR 1.0 Sodium 135 L Potassium 3.8 Chloride 102 Carbon Dioxide 28 BUN 10 Creatinine Glucose 118 H 02/07/19 06:56 WBC Hgb Plt Count PT INR Sodium Potassium Chloride Carbon Dioxide BUN Creatinine 0.53 L Glucose
[~2019-02-18 06:00] MED LIST changes: -AMLO10TA3 PO; -ASPI-435 PO; -ATOR-26 PO; -CLR10 PO; -CYAN1SUB12 PO; -FLUT0.15 NAE; -GUARPOW2 PO; -HOME1TAB18 PO; -LORA-741 PO; +LR 15ML/HR IV SCH; -MULT-506 PO; -OPTIRAY 320 IV PRN; -PARO30TA5 PO; -POTACAP PO; -PRAZ5CAP2 PO; -PRLSR20 PO; -SYMIN160 INH; -TIOTCAP INH; -VGR25 PO
--- NOTE | 2019-02-18 06:24 | History & Physical Bridge Note ---
Date of Service February 18, 2019 History & Physical Bridge Note I have examined the patient, reviewed the History & Physical and in the interval since the performance of the History & Physical I have noted the following changes of clinical significance: no changes noted
[2019-02-18] MEDS ORDERED: ePHEDrine sulfate 50 MG/ML AMP IV PRN (06:37)
[2019-02-18] MEDS ORDERED: ATROPINE SULFATE 0.1 MG/ML 10ML SYR IV PRN (06:37)
[2019-02-18] MEDS ORDERED: HYDROmorphone INJ 1 MG/ML SYRINGE IV PRN (06:37)
[2019-02-18] MEDS ORDERED: fentaNYL citrate 100 MCG/2 ML VIAL IV PRN (06:37)
[2019-02-18] MEDS ORDERED: PROMETHAZINE HCL 12.5 MG in SODIUM CHLORIDE 0.9% 50 ML IV PRN (06:37)
[2019-02-18] MEDS ORDERED: ONDANSETRON INJ 2 MG/ML 2 ML VIAL IV PRN ×3 (06:37→18:21)
[2019-02-18 06:41] LABS: Hematocrit (blood only) 28.9 % (42-52); Hemoglobin 9.5 g/dL (14.0-18.0); Mean Corpuscular Volume 80.5 fL (80-100); Mean Platelet Volume 8.2 fL (7.4-10.4); Platelet Count 694 K/uL (130-400); RDW Coefficient of Variation 14.9 % (11.5-14.5); RDW Standard Deviation 43.7 fL (36.4-46.3); Red Blood Count 3.59 M/uL (4.7-6.1); White Blood Count 9.79 K/uL (4.8-10.8)
[2019-02-18] MEDS ORDERED: CLINDAMYCIN 600 MG/54 ML D5W IV ONE (06:45)
[2019-02-18] MEDS ORDERED: MIDAZOLAM HCL 1 MG/ML 2ML VIAL ONE (06:47)
[2019-02-18] MEDS ORDERED: fentaNYL citrate 100 MCG/2 ML VIAL ONE ×2 (06:47→08:53)
[2019-02-18 06:48] LABS: Mean Corpuscular Hgb Conc 32.9 g/dL (32-36)
[2019-02-18] MEDS ORDERED: SODIUM CHLORIDE 0.9% PF 50 ML VIAL ONE (07:32)
[2019-02-18] MEDS ORDERED: BUPIVACAINE 0.5 % 5 MG/1 ML MPF 30ML VIAL ONE (07:32)
[2019-02-18] MEDS ORDERED: BUPIVACAINE LIPOSOME 1.3% 266 MG/20 ML VIAL ONE (07:33)
[2019-02-18] MEDS ORDERED: HYDROmorphone INJ 2 MG/ML SYR/VIAL ONE (08:36)
[2019-02-18] MEDS ORDERED: ONDANSETRON INJ 2 MG/ML 2 ML VIAL ONE (08:55)
[2019-02-18] MEDS ORDERED: GLYCOPYRROLATE 0.2 MG/ML VIAL ONE (08:55)
[2019-02-18] MEDS ORDERED: DEXAMETHASONE SOD INJ 4 MG/ML VIAL ONE (08:55)
[2019-02-18] MEDS ORDERED: PROPOFOL IV EMULSION 10 MG/ML 20 ML VIAL IV ONE (08:55)
[2019-02-18] MEDS ORDERED: LIDOCAINE HCL 2% 2 ML VIAL/AMP(20MG/ML) INFIL ONE (08:55)
[2019-02-18] MEDS ORDERED: NEOSTIGMINE METHYLSULFATE 5 MG/5 ML SYR ONE (08:55)
[2019-02-18] MEDS ORDERED: PHENYLEPHRINE 100MCG/ML 5ML SYR ONE ×2 (08:55→13:11)
[2019-02-18] MEDS ORDERED: ROCURONIUM BROMIDE 10 MG/ML 5 ML VIAL ONE ×2 (08:55→10:49)
[2019-02-18] MEDS ORDERED: PHENYLEPHRINE HCL 10 MG/ML VIAL ONE ×2 (09:34→13:11)
[2019-02-18] MEDS ORDERED: ALBUMIN HUMAN 5% 12.5 GM/250 ML VIAL IV ONE (12:04)
[2019-02-18] MEDS ORDERED: CALCIUM CHLORIDE 10% 10 ML SYR IV ONE (14:46)
[2019-02-18 15:38] LABS: BUN Creatinine Ratio 12.2 (10-20); Calcium 7.4 mg/dl (8.5-10.1); Creatinine Clr Calc Pharmacy 83.4 ml/min; Est GFR (African American) 105.3; Est GFR (Non-African American) 90.9
[2019-02-18 15:41] LABS: Hematocrit (blood only) 26.6 % (42-52); Hemoglobin 8.5 g/dL (14.0-18.0); Mean Corpuscular Volume 83.1 fL (80-100); Mean Platelet Volume 8.5 fL (7.4-10.4); Platelet Count 647 K/uL (130-400); RDW Coefficient of Variation 15.3 % (11.5-14.5); RDW Standard Deviation 46.9 fL (36.4-46.3); White Blood Count 20.17 K/uL (4.8-10.8)
[2019-02-18 15:53] LABS: Basophils # (auto) 0.02 K/uL (0-0.2); Basophils % (auto) 0.1 %; Echinocytes 1+; Eosinophils # (auto) 0.02 K/uL (0-0.5); Eosinophils % (auto) 0.1 %; Immature Granulocytes # (auto) 0.62 K/uL (0.00-0.02); Immature Granulocytes % (auto) 3.1 %; Lymphocytes # (auto) 0.31 K/uL (1.2-3.4); Lymphocytes % (auto) 1.5 %; Neutrophils % (auto) 92.2 %; Polychromasia 1+
[2019-02-18] MEDS ORDERED: MoRPHine SULFATE 2 MG/ML CARP IV PRN (16:44)
[2019-02-18] MEDS ORDERED: OXYCODONE/ACETAMINOPHEN 5mg/325mg TAB PO PRN (16:44)
[2019-02-18] MEDS ORDERED: D5W AND 1/2NSS 1,000 ML IV SCH (16:45)
[2019-02-18] MEDS ORDERED: METOCLOPRAMIDE HCL INJ 5 MG/ML 2 ML VIAL IV STA (17:01)
--- NOTE | 2019-02-18 17:03 | XRay Report ---
XR chest 1V not portable CLINICAL HISTORY: lobectomy postoperative COMPARISON STUDY: 02/10/2019 FINDINGS: Operative findings consistent with a left lobectomy. Drainage catheters of the left chest a re noted. There is a 40% left apical pneumothorax with maximal pleural separation of 7 cm. Prominent bronchovascular markings are noted bilaterally. Right lung shows no evidence pneumothorax. IMPRESSION: 1. 40% left apical pneumothorax post left lobectomy. 2. Prominent parenchymal markings throughout both hemithoraces slightly increased from the prior exam . 3. Several left-sided drainage catheters in position. The above report was generated using voice recognition software. It may contain grammatical, syntax or spelling errors. Electronically signed by: Jimmie Kaur M.D. 02/18/2019 5:02 PM
[2019-02-18 17:33] LABS: Basophils # (auto) 0.02 K/uL (0-0.2); Basophils % (auto) 0.1 %; Hematocrit (blood only) 27.9 % (42-52); Immature Granulocytes # (auto) 0.49 K/uL (0.00-0.02); Immature Granulocytes % (auto) 2.3 %; Lymphocytes # (auto) 0.76 K/uL (1.2-3.4); Lymphocytes % (auto) 3.5 %; Mean Corpuscular Hgb Conc 32.3 g/dL (32-36); Mean Corpuscular Volume 82.3 fL (80-100); Mean Platelet Volume 8.5 fL (7.4-10.4); Monocytes # (auto) 0.75 K/uL (0.11-0.59); Monocytes % (auto) 3.5 %; Neutrophils # (auto) 19.55 K/uL (1.4-6.5); Neutrophils % (auto) 90.6 %; Platelet Count 674 K/uL (130-400); RDW Coefficient of Variation 15.3 % (11.5-14.5); RDW Standard Deviation 46.2 fL (36.4-46.3); Red Blood Count 3.39 M/uL (4.7-6.1); White Blood Count 21.57 K/uL (4.8-10.8)
[2019-02-18 17:50] LABS: BUN Creatinine Ratio 12.3 (10-20); Calcium 8.3 mg/dl (8.5-10.1); Creatinine Clr Calc Pharmacy 86.6 ml/min; Est GFR (African American) 106.9; Est GFR (Non-African American) 92.3; Potassium 5.7 mmol/L (3.5-5.1)
--- NOTE | 2019-02-18 18:04 | Anesthesiology Progress Note ---
Date of Service February 18, 2019 Anesthesia Post Procedure Vital Signs Vital Signs: Temp Pulse Pulse Resp BP Pulse Ox 02/18/19 17:45 98.4 F 105 H 21 121/61 96 02/18/19 17:35 98.4 F 104 H 19 132/49 L 95 02/18/19 17:25 98.4 F 106 H 20 135/59 L 93 02/18/19 17:15 106 H 21 134/66 92 02/18/19 17:05 100 H 17 123/53 L 100 02/18/19 16:55 105 H 16 126/71 98 02/18/19 16:48 97.7 F 101 H 10 L 122/58 L 95 02/18/19 06:29 97.5 F L 92 H 20 128/68 93 Notes Mental Status: alert / awake / arousable and participated in evaluation Patient Amnestic to Procedure: Yes Nausea / Vomiting: adequately controlled Pain: adequately controlled Airway Patency, RR, SpO2: stable & adequate BP & HR: stable & adequate Hydration State: stable & adequate Anesthetic Complications: no major complications apparent and Pt Satisfied with anesthetic care
[2019-02-18] MEDS ORDERED: TRAMADOL HCL 50 MG TABLET PO PRN (18:21)
[2019-02-18] MEDS: KETOROLAC TROMETHAMINE 15 MG/ML VIAL IV SCH ×2 (18:23→23:23)
[2019-02-18] MEDS ORDERED: BEER 1 CAN PO PRN (18:37)
[2019-02-18] MEDS: FLUTICASONE PROPIONATE NA SPR 16 GM BTL SCH (20:42)
[2019-02-18] MEDS: PRAZOSIN HCL 1 MG CAP PO SCH (20:44)
[2019-02-18] MEDS: PANTOprazole 40 MG TAB PO SCH (20:44)
[2019-02-18] MEDS: DOCUSATE SODIUM 100 MG CAP PO SCH (20:44)
[2019-02-18] MEDS: BUDESONIDE/FORMOTEROL FUMARATE 160/4.5 60 PUFFS/INHALER INH SCH (20:45)
[2019-02-18] MEDS: ATORVASTATIN 40 MG TAB PO SCH (20:45)
[2019-02-18] MEDS: AMLODIPINE BESYLATE 5 MG TAB PO SCH (20:54)
[2019-02-18] MEDS ORDERED: NON-FORMULARY MEDICATION (Potassium 99 MG) PO SCH (21:00)
[2019-02-18] MEDS ORDERED: FUROSEMIDE 20 MG in SYRINGE 0 ML IV STA (23:32)
[2019-02-18] MEDS ORDERED: FUROSEMIDE 40 MG/4 ML VIAL IV ONE (23:32)
[2019-02-19] MEDS ORDERED: Nursing to Pharmacy Communication ONE
[2019-02-19] MEDS: METOCLOPRAMIDE HCL INJ 5 MG/ML 2 ML VIAL IV SCH ×2 (00:22→09:54)
--- NOTE | 2019-02-19 01:29 | Operative Report ---
DATE OF OPERATION: 02/18/2019 PREOPERATIVE DIAGNOSES: 1. [id number] lung carcinoma, left upper lobe. 2. Chronic small cell lymphoma. 3. Active cigarette smoking. POSTOPERATIVE DIAGNOSES: Same. PROCEDURE: 1. Reoperative left robot-assisted thoracoscopic left upper lobectomy with mediastinal lymph node dissection. 2. Decortication of left lower lobe. SURGEON: Jeremy Myers MD TRAFFIC ENGINEERING DIRECTOR: Cee Hernandez ANESTHESIA: General anesthesia with endotracheal intubation using double lumen tube. SPECIFICS OF PROCEDURE AND FINDINGS: Yordan Lomas is a 69-year-old active smoker who was found to have a hypermetabolic mass in his right upper lobe, which certainly appeared to be a cancer. Approximately 2 weeks ago, I took the patient to the operating room and did a robot-assisted thoracoscopic surgery and it was extremely difficult. The patient had marked adhesions and we spent 3 hours lysing adhesions and finally wedged the nodule out. This was from the superior lateral aspect of the left upper lobe. Frozen section showed 2 small nodules of a olm-ogutg-xmgi lung cancer and we did have clean margins and we had been in the OR so long and it had been such an arduous case that I elected to stop at this point. He also had significant air leaks and I wedged out an area of another portion of the upper lobe. Unfortunately, the permanent sections of the second wedge showed another cancer and the margin was positive. I had a long talk at our multidisciplinary lung conference about this. After a long discussion, following the NCCN guidelines, we felt that resecting this would be the best option. I will say he tolerated the procedure well and was home in 3 days. I discussed this in detail with the patient's in the office. I explained there will be a higher risk with a reoperative case and also it was quite a difficult case originally. They understood. On 02/18/2019, the patient underwent a reoperative surgery and adhesions were taken down much easier and we freed up the entire lung. However, there was a thickened visceral pleura on both the upper lobe and lower lobe. We ended up doing a long case, but we were able to do the lobectomy without too much difficulty. Unfortunately, the left lower lobe did not expand as I wanted to and I decorticated this; however, we developed some lung tears and I was happy with the basilar segment and the lateral segments. Although the anterior aspects of the lung was harder to decorticate, we kept tearing the lung. I simply could not find a plane. We had converted this to a thoracoscopic case at the end after the lobe was out. He was stable during the case and his lung was expanding. We elected to stop as it was a long case. He tolerated it well, was extubated in the room. His left lower lobe is not fully expanded on his initial x-ray. We will see how it looks. He has a moderate air leak. He tolerated it well. DESCRIPTION OF PROCEDURE: The patient was brought to the operating room and laid in supine position. General anesthesia was induced and endotracheal intubation was performed with a double lumen tube. The patient was placed on the right lateral decubitus position. Left chest was prepped and draped in the usual sterile fashion. A 5-mm port was placed to the original camera port and just anterior to the mid maxillary line and it could be seen that we were in the pleura, although there were adhesions. We were able to free these flimsy adhesions up with the scope itself until got down to the assistance port and we were able to put this back in which was more inferior just above the diaphragm. With these 2 ports we were able to take down all of the other adhesions superiorly and laterally and inferiorly. There was still marked adhesions along the diaphragm and the mediastinum. We then replaced all of our ports. There was a 5-mm port posteriorly, another 8-mm port posteriorly, and 8-mm port anteriorly. With these ports, we were able to take down adhesions. I did put another 8-mm port anteriorly 2 interspaces below in order a access the fissure better as it was difficult to access it due to the adhesions. Finally, I took down all the diaphragmatic adhesions and the mediastinal adhesions and then started posteriorly. I freed up the artery posteriorly and this was difficult due to the inflammatory process that caused the adhesions in the first place. So we were able to dissect this out and I was able to start taking the arteries. We took 2 of the main arterial branches posteriorly and then took the lingual branch. This bifurcated quickly, but we fired Endo-KYM staplers across these. There was 1 final apical anterior branch which was divided. This freed up things nicely and then we went anteriorly and fired across the superior pulmonary vein. the fissures was extremely difficult anteriorly. Simply could not find a good plane. Finally took the bronchus and then I was able to simply fire Endo-KYM nabila to finish this. Care was taken to avoid injury to the phrenic nerve as well as the aorta. We then inflated the lung and there were some small air leaks, but really the biggest problem was the lung simply did not expand. I then meticulously took down all adhesions between the aorta and the superior segment of the lower lobe. I freed this up and then decorticated this by grasping an edge of the pleura that I cut with scissors and pulled back, but we kept getting into the parenchyma. Bleeding was controlled with the Harmonic scalpel as well as the Aquamantys. The diaphragmatic side was fine. We freed this up nicely and took down the inferior pulmonary ligament. We also freed the lower lobe up off of the aorta completely and decorticated as well as we could, but we continued to get lung tears. Finally, we had been at this for such a long period of time that I felt that that the better part of valor was to see if his lung would come up. I elected to stop here. It should be noted that we had undocked the robot after we had placed an Endobag around the specimen. We then had to enlarge the assistance port a bit to get this out. The margin was free of any neoplastic cells. We took out multiple nodes. I took out 5, 6, 10, 11, 12, and there were multiple nodes taken from each of these. It should be noted I did a mediastinoscopy and I thoroughly biopsied level 7 and did take out the 8 and 9 nodes earlier. We also did an Exparel block by injecting 266 mg of Exparel mixed with 30 mL of 0.25% Marcaine in 250 mL of normal saline. Because of the thickened pleura, I did this percutaneously from between the ribs posteriorly. A 24-Turkish chest tube was directed towards the apex and I put a PleurX catheter and laid it posteriorly. He did have a cuaxh-ge-koaliral air leak. We then sutured in the chest tube with a heavy silk suture and put this in the anterior port. The PleurX was brought through a separate stab wound. A 0 Vicryl was used to close the muscle layers of the 3 larger incisions and 4-0 Monocryl was used in running subcuticular fashion to approximate the wound edges. He was extubated in the room and tolerated it well. I attest to the content of the Intraoperative Record and any orders documented therein. Any exceptions are noted below. NEFTALY
[2019-02-19] MEDS: LORazepam 0.5 MG TAB PO PRN ×3 (04:59→14:20)
--- NOTE | 2019-02-19 06:18 | XRay Report ---
XR chest 1V portable CLINICAL HISTORY: change in Pt status COMPARISON STUDY: 02/18/2018 FINDINGS: Interval repositioning of a left apical drainage tube. Increased fluid left pulmonary apex. Unchanging left hydropneumothorax. Trace pleural fluid right hemithorax. IMPRESSION: Repositioning of a left-sided chest tube with the left-sided pneumothorax now containing a moderate amount of fluid. Study is otherwise similar. The above report was generated using voice recognition software. It may contain grammatical, syntax or spelling errors. Electronically signed by: Jimmie Kaur M.D. 02/19/2019 6:17 AM
[2019-02-19 07:21] LABS: Basophils # (auto) 0.03 K/uL (0-0.2); Basophils % (auto) 0.2 %; Eosinophils # (auto) 0.01 K/uL (0-0.5); Eosinophils % (auto) 0.1 %; Hemoglobin 8.4 g/dL (14.0-18.0); Immature Granulocytes # (auto) 0.15 K/uL (0.00-0.02); Immature Granulocytes % (auto) 1.1 %; Lymphocytes # (auto) 0.97 K/uL (1.2-3.4); Lymphocytes % (auto) 7.2 %; Mean Corpuscular Hgb Conc 32.3 g/dL (32-36); Mean Corpuscular Volume 81.3 fL (80-100); Mean Platelet Volume 8.7 fL (7.4-10.4); Monocytes # (auto) 1.41 K/uL (0.11-0.59); Monocytes % (auto) 10.5 %; Neutrophils # (auto) 10.91 K/uL (1.4-6.5); Neutrophils % (auto) 80.9 %; Platelet Count 603 K/uL (130-400); RDW Coefficient of Variation 15.1 % (11.5-14.5); RDW Standard Deviation 44.8 fL (36.4-46.3); White Blood Count 13.48 K/uL (4.8-10.8)
--- NOTE | 2019-02-19 07:37 | Anesthesiology Progress Note ---
Date of Service February 19, 2019 Anesthesia Post Procedure Vital Signs Vital Signs: Temp Pulse Pulse Resp BP BP BP 02/19/19 03:25 36.8 C 106 H 18 105/56 L 02/19/19 03:15 107 H 17 02/19/19 03:00 106 H 25 H 114/58 L 02/19/19 02:45 106 H 19 02/19/19 02:30 106 H 18 02/19/19 02:15 106 H 29 H 02/19/19 02:00 106 H 17 106/54 L 02/19/19 01:45 106 H 18 02/19/19 01:30 107 H 17 02/19/19 01:15 107 H 20 02/19/19 01:01 106 H 17 104/50 L 02/19/19 01:00 106 H 23 02/19/19 00:45 106 H 19 02/19/19 00:30 103 H 9 L 02/19/19 00:15 105 H 21 02/19/19 00:10 103 H 18 02/19/19 00:00 104 H 18 102/55 L 02/18/19 23:50 105 H 22 02/18/19 23:45 102 H 17 02/18/19 23:40 103 H 19 02/18/19 23:39 36.6 C 91 H 18 149/47 H 02/18/19 23:30 105 H 20 02/18/19 23:20 105 H 19 02/18/19 23:15 106 H 17 02/18/19 23:10 104 H 20 02/18/19 23:00 105 H 19 103/55 L 02/18/19 22:50 107 H 19 02/18/19 22:45 107 H 17 02/18/19 22:40 107 H 17 02/18/19 22:30 107 H 17 02/18/19 22:20 106 H 20 02/18/19 22:15 36.9 C 106 H 18 02/18/19 22:10 108 H 20 02/18/19 22:02 112 H 19 02/18/19 22:01 114 H 33 H 93/49 L 02/18/19 22:00 112 H 43 H 02/18/19 21:46 110 H 16 104/53 L 02/18/19 21:45 108 H 17 02/18/19 21:30 107 H 19 109/55 L 03/26/19 21:16 108 H 21 99/52 L 02/18/19 21:15 106 H 19 02/18/19 21:00 109 H 23 113/59 L 02/18/19 20:45 105 H 16 120/59 L 02/18/19 20:30 106 H 15 119/60 02/18/19 20:15 106 H 18 112/60 02/18/19 20:00 107 H 16 116/59 L 02/18/19 19:45 106 H 17 117/61 02/18/19 19:35 102 H 18 120/60 02/18/19 19:30 103 H 17 02/18/19 19:15 104 H 14 02/18/19 19:00 37.0 C 101 H 104 H 16 125/62 125/62 02/18/19 18:45 103 H 17 02/18/19 18:36 102 H 19 118/54 L 02/18/19 18:30 104 H 23 02/18/19 18:28 107 H 21 02/18/19 18:21 36.6 C 104 H 14 118/54 L 02/18/19 17:45 36.9 C 105 H 21 121/61 02/18/19 17:35 36.9 C 104 H 19 132/49 L 02/18/19 17:25 36.9 C 106 H 20 135/59 L 02/18/19 17:15 106 H 21 134/66 02/18/19 17:05 100 H 17 123/53 L 02/18/19 16:55 105 H 16 126/71 02/18/19 16:48 36.5 C 101 H 10 L 122/58 L Pulse Ox 02/19/19 03:25 94 02/19/19 03:15 94 02/19/19 03:00 95 02/19/19 02:45 95 02/19/19 02:30 94 02/19/19 02:15 94 02/19/19 02:00 92 02/19/19 01:45 94 02/19/19 01:30 94 02/19/19 01:15 88 L 02/19/19 01:01 92 02/19/19 01:00 91 02/19/19 00:45 90 02/19/19 00:30 91 02/19/19 00:15 91 02/19/19 00:10 92 02/19/19 00:00 93 02/18/19 23:50 89 L 02/18/19 23:45 89 L 02/18/19 23:40 86 L 02/18/19 23:39 94 02/18/19 23:30 83 L 02/18/19 23:20 90 02/18/19 23:15 88 L 02/18/19 23:10 90 02/18/19 23:00 91 02/18/19 22:50 88 L 02/18/19 22:45 89 L 02/18/19 22:40 91 02/18/19 22:30 90 02/18/19 22:20 92 02/18/19 22:15 92 02/18/19 22:10 92 02/18/19 22:02 84 L 02/18/19 22:01 85 L 02/18/19 22:00 86 L 02/18/19 21:46 89 L 02/18/19 21:45 89 L 02/18/19 21:30 89 L 02/18/19 21:16 88 L 02/18/19 21:15 90 02/18/19 21:00 92 02/18/19 20:45 92 02/18/19 20:30 92 02/18/19 20:15 93 02/18/19 20:00 93 02/18/19 19:45 93 02/18/19 19:35 96 02/18/19 19:30 97 02/18/19 19:15 96 02/18/19 19:00 97 02/18/19 18:45 97 02/18/19 18:36 98 02/18/19 18:30 96 02/18/19 18:28 96 02/18/19 18:21 97 02/18/19 17:45 96 02/18/19 17:35 95 02/18/19 17:25 93 02/18/19 17:15 92 02/18/19 17:05 100 02/18/19 16:55 98 02/18/19 16:48 95 Pain Intensity Left Chest: Pain Intensity: 7 Notes Mental Status: alert / awake / arousable and participated in evaluation Patient Amnestic to Procedure: Yes Nausea / Vomiting: adequately controlled Pain: adequately controlled Airway Patency, RR, SpO2: stable & adequate BP & HR: stable & adequate Hydration State: stable & adequate Anesthetic Complications: no major complications apparent
[2019-02-19 07:49] LABS: Hypochromasia Present
[2019-02-19 07:59] LABS: BUN Creatinine Ratio 12.2 (10-20); Calcium 7.7 mg/dl (8.5-10.1); Creatinine Clr Calc Pharmacy 91.2 ml/min; Est GFR (African American) 109.2; Est GFR (Non-African American) 94.3; Potassium 4.3 mmol/L (3.5-5.1)
--- NOTE | 2019-02-19 08:08 | XRay Report ---
XR chest 1V portable CLINICAL HISTORY: lobectomy postoperative COMPARISON STUDY: 02/18/2019 FINDINGS: Unchanged left apical hydropneumothorax. The fluid component is perhaps some somewhat dimin ished. Slight increase in parenchymal markings left mid to lower lung. Very small right pleural effusion unc hanged. Uncal vascular prominence of the right hemithorax. IMPRESSION: Stable to slightly improved appearance left pulmonary apex. 2. Left apical hydropneumothorax shows a slight improvement in fluid volume. 3. Slight increase in pulmonary vascular congestion The above report was generated using voice recognition software. It may contain grammatical, syntax or spelling errors. Electronically signed by: Jimmie Kaur M.D. 02/19/2019 8:07 AM
[2019-02-19] MEDS: KETOROLAC TROMETHAMINE 15 MG/ML VIAL IV SCH ×3 (09:02→23:48)
[2019-02-19] MEDS: BUDESONIDE/FORMOTEROL FUMARATE 160/4.5 60 PUFFS/INHALER INH SCH ×2 (09:15→20:31)
[2019-02-19] MEDS: TIOTROPIUM BROMIDE 5 PUFF/90 MCG INH INH SCH (09:17)
[2019-02-19] MEDS: LORATADINE 10 MG TAB PO SCH (09:55)
[2019-02-19] MEDS: ASPIRIN 81 MG ECTAB PO SCH (09:55)
[2019-02-19] MEDS: DOCUSATE SODIUM 100 MG CAP PO SCH ×2 (09:55→20:31)
[2019-02-19] MEDS: CALCIUM POLYCARBOPHIL 625MG TAB PO SCH (09:56)
[2019-02-19] MEDS: ENOXAPARIN INJ 40 MG/0.4 ML SYR SQ SCH (09:56)
[2019-02-19] MEDS: FLUTICASONE PROPIONATE NA SPR 16 GM BTL SCH (09:56)
[2019-02-19] MEDS: MULTIVITAMIN TAB PO SCH (09:57)
[2019-02-19] MEDS: PARoxetine HCl 20 MG TAB PO SCH (09:57)
[2019-02-19] MEDS: CYANOCOBALAMIN 500 MCG TABLET (VITAMIN B-12) PO SCH (09:58)
[2019-02-19] MEDS: PANTOprazole 40 MG TAB PO SCH (09:58)
[2019-02-19] MEDS ORDERED: IPRATROPIUM BROMIDE NEB SOLN 0.02% 2.5 ML VIAL NEB STA (10:13)
[2019-02-19] MEDS: ALBUT/IPRATROP 3MG/0.5MG NEB 3 ML VIAL NEB SCH ×4 (10:53→23:28)
[2019-02-19] MEDS ORDERED: methylPREDNISolone 40 MG in SYRINGE 0 ML IV STA (12:13)
--- NOTE | 2019-02-19 15:49 | Consultation Report ---
DATE OF CONSULTATION: 02/19/2019 PULMONARY CONSULTATION TIME: 10:45 a.m. REPORT OF CONSULTATION: Stat consultation was requested regarding severe hypoxia. The patient is a 69-year-old male who has a history of small cell lymphoma diagnosed approximately 2017. Reportedly, this did not need any treatment. He was found to have some mediastinal adenopathy and some small abnormalities in the left upper lobe. He underwent a video mediastinoscopy on 12/26/2018. This revealed small cell lymphoma. He did have a PET scan done 12/18/2018 that suggested a spiculated pleural based nodule in the left upper lobe measuring up to 1.5 cm which was hypermetabolic. There was also a secondary nodule measuring 6 mm that was mildly hypermetabolic. There was bulky adenopathy throughout the neck, supraclavicular areas, mediastinum, hilar, and retroperitoneum. The patient underwent a left upper lobe wedge resection on 02/04/2019. There were extensive adhesions in the chest, which required a very long procedure. The patient was discharged on 02/07/2019. The final path report suggested that there was persistent tumor at the edge of the resection. In light of this, he was returned yesterday where he had a video-assisted thoracoscopy with left upper lobectomy. There was also mediastinal lymph node dissection. This also was a fairly extended procedure. The patient developed increasing shortness of breath and worsening hypoxia over nighttime. He had been on nasal cannula and then subsequently OxyMask. Even on high liter flow OxyMask, he was not oxygenating as well. He was then put on high flow nasal cannula. This has brought up his saturations into the mid to upper 90s. He is on 95%, however. The patient states he feels better with this. He is not coughing much. He is not bringing up any phlegm. His chest tube appears to be functioning and draining. The patient did have a chest x-ray this morning that shows a left apical hydropneumothorax. There was less aeration of the left mid to lower lung field than there had been yesterday. I suspect this represents some degrees of atelectasis. Slight vascular congestion was reported. Nursing states the patient had been getting some Lasix. His postoperative x-ray yesterday showed a 40% left apical pneumothorax, but that had gotten better by later in the evening. PAST MEDICAL HISTORY: 1. Small cell lymphoma. 2. COPD. 3. BPH. 4. GERD. 5. Hyperlipidemia. 6. Hypertension. 7. Reported history of sleep apnea. 8. ETOH abuse. 9. Peptic ulcer disease. PAST SURGICAL HISTORY: 1. Tonsillectomy. 2. Elbow surgery. 3. Back surgery. 4. Axillary node biopsy. 5. Video-assisted mediastinoscopy. 6. Left upper lobe wedge resection. 7. Left upper lobectomy. SOCIAL HISTORY: Tobacco: The patient smoked from ages 16 until 28. He quit from ages 28 until 41. He then smoked from age 41 up until the present time at age 69. This would represent 40 years of smoking with an average of 2 packs per day for a total of 80 pack years. Alcohol use according to the patient is 18 beers per day. OCCUPATIONAL HISTORY: The patient was in the for 31 years. 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 FAMILY HISTORY: History of [place], hypertension, CVA, and ulcerative colitis. REVIEW OF SYSTEMS: The patient is having some nausea. He has not had vomiting. Denies urinary complaints. He is not complaining of significant pain at the surgical sites, but he has had some back pain and pain in the back of his head. Reportedly, he had a restless night. Review of systems is otherwise negative. Ten systems reviewed. MEDICATIONS AT HOME: 1. Symbicort 2 puffs b.i.d. 2. Spiriva HandiHaler 1 capsule daily. 3. Amlodipine 10 mg at bedtime. 4. Baby aspirin daily. 5. Atorvastatin 80 mg at bedtime. 6. Vitamin B12. 7. Fluticasone nasal spray. 8. Loratadine. 9. Lorazepam 0.5 b.i.d. p.r.n. 10. Omeprazole 40 mg daily. 11. Paroxetine 30 mg daily. 12. Potassium at bedtime. 13. Prazosin 5 mg at bedtime. 14. Tramadol p.r.n. PHYSICAL EXAMINATION: GENERAL: The patient is a 69-year-old male who looked appropriate for his age. He was cooperative and alert. He did not appear in acute distress. Weight is 68.5 kilograms with a BMI of 23. HEENT: Pupils were reactive. He does have high-flow nasal oxygen in place. I did not therefore thoroughly evaluate the pharynx. VITAL SIGNS: Cardiac rate is 108 per minute. Rhythm regular. Blood pressure 112/56. CHEST: Shows diminished excursions. He has a chest tube on the left. Temperature is 36.7. There is diminished aeration of the left chest compared with the right chest. Respiratory rate was 20. Current saturation 95%, on high-flow nasal at 95%. ABDOMEN: Soft. Bowel sounds were heard. There was no tenderness to palpation. EXTREMITIES: Showed no cyanosis, clubbing or edema. LABORATORY DATA: White count is 13.48. Hemoglobin 8.4. Platelets elevated at 603,000. Differential showed 81% neutrophils, 7.2 lymphs, 10.5 monos. Electrolytes show sodium 132, potassium 4.3, chloride 101, bicarb 26. BUN is 9 with a creatinine 0.75. IMPRESSION: 1. Acute respiratory failure with hypoxia. 2. Probable atelectasis. 3. Nonsmall cell lung CA - status post wedge resection and status post left upper lobectomy. 4. Chronic obstructive pulmonary disease. 5. History of asbestos exposure with report of pleural plaque. 6. Small cell lymphoma. COMMENTS AND RECOMMENDATIONS: The patient has diminished aeration to the left. He has significant shunt. I would continue the high flow nasal. I have initiated nebulizer treatments q. 4 hours. I am going to give him 1 dose of steroid for now. I do not believe bronchospasm is the underlying problem, however, for his hypoxia. I suspect it is more mechanical. We will defer those aspects to Dr. Myers. I would continue with the incentive spirometry. The patient does require close followup. Thank you for asking me to assist in his care.
[2019-02-19] MEDS ORDERED: LORazepam 1 MG/2 ML VIAL IV PRN (16:00)
[2019-02-19] MEDS ORDERED: fentaNYL citrate 100 MCG/2 ML VIAL IV ONE (16:01)
[2019-02-19] MEDS ORDERED: SUCCINYLCHOLINE CHLORIDE 20 MG/ML 10 ML VIAL IV ONE (16:01)
[2019-02-19] MEDS ORDERED: MIDAZOLAM HCL 5 MG/ML VIAL IV ONE (16:01)
--- NOTE | 2019-02-19 16:18 | Procedure Note ---
Procedure Note Date of Service February 19, 2019 Procedure Date: Noted above Procedure: Endotracheal intubation Pre-procedure Diagnosis: Acute hypoxic respiratory failure Post-procedure Diagnosis: same as above Prior to Procedure: Informed Consent: Informed consent had been obtained from the patient's Attending Staff: Laz Virk DO Indications: 69-year-old male postop day 1 from a wedge resection with mucoid impaction requiring bronchoscopy for acute hypoxic respiratory failure The identity of the patient was confirmed and a bedside time out was performed. Description of Procedure: Patient was evaluated and required intubation for impending respiratory failure. The patient was prepared in the usual fashion. A Barreto to laryngoscope was used. A 8.0 endotrachial tube was placed endotracheally to 23 cm at the teeth. A grade 1 view was obtained. The endotracheal tube was noted to pass through the vocal cords. Chest rise was bilateral. Bilateral breath sounds were heard without air sounds in the abdomen. Mist was noted in the endotracheal tube. End-tidal CO2 measurement was positive. Endotracheal tube position confirmed by a bronchoscopy completed by Dr. Myers. Complications: None Findings: Not applicable Specimens: Not applicable Estimated blood loss: Zero
--- NOTE | 2019-02-19 16:19 | Pre Anesthesia Assessment ---
Date of Service February 19, 2019 Pre Sedation Assessment Vital Signs Temp Pulse Pulse Resp BP BP BP 02/19/19 15:28 36.7 C 111 H 20 125/66 02/19/19 14:13 112 H 33 H 02/19/19 12:59 84 22 02/19/19 11:16 36.6 C 109 H 24 97/50 L 02/19/19 10:53 108 H 20 02/19/19 07:56 36.7 C 113 H 18 112/56 L 02/19/19 03:25 36.8 C 106 H 18 105/56 L 02/19/19 03:15 107 H 17 02/19/19 03:00 106 H 25 H 114/58 L 02/19/19 02:45 106 H 19 02/19/19 02:30 106 H 18 02/19/19 02:15 106 H 29 H 02/19/19 02:00 106 H 17 106/54 L 02/19/19 01:45 106 H 18 02/19/19 01:30 107 H 17 02/19/19 01:15 107 H 20 02/19/19 01:01 106 H 17 104/50 L 02/19/19 01:00 106 H 23 02/19/19 00:45 106 H 19 02/19/19 00:30 103 H 9 L 02/19/19 00:15 105 H 21 02/19/19 00:10 103 H 18 02/19/19 00:00 104 H 18 102/55 L 02/18/19 23:50 105 H 22 02/18/19 23:45 102 H 17 02/18/19 23:40 103 H 19 02/18/19 23:39 36.6 C 91 H 18 149/47 H 02/18/19 23:30 105 H 20 02/18/19 23:20 105 H 19 02/18/19 23:15 106 H 17 02/18/19 23:10 104 H 20 02/18/19 23:00 105 H 19 103/55 L 02/18/19 22:50 107 H 19 02/18/19 22:45 107 H 17 02/18/19 22:40 107 H 17 02/18/19 22:30 107 H 17 02/18/19 22:20 106 H 20 02/18/19 22:15 36.9 C 106 H 18 02/18/19 22:10 108 H 20 02/18/19 22:02 112 H 19 02/18/19 22:01 114 H 33 H 93/49 L 02/18/19 22:00 112 H 43 H 02/18/19 21:46 110 H 16 104/53 L 02/18/19 21:45 108 H 17 02/18/19 21:30 107 H 19 109/55 L 02/18/19 21:16 108 H 21 99/52 L 02/18/19 21:15 106 H 19 02/18/19 21:00 109 H 23 113/59 L 02/18/19 20:45 105 H 16 120/59 L 02/18/19 20:30 106 H 15 119/60 02/18/19 20:15 106 H 18 112/60 02/18/19 20:00 107 H 16 116/59 L 02/18/19 19:45 106 H 17 117/61 02/18/19 19:35 102 H 18 120/60 02/18/19 19:30 103 H 17 02/18/19 19:15 104 H 14 02/18/19 19:00 37.0 C 101 H 104 H 16 125/62 125/62 02/18/19 18:45 103 H 17 02/18/19 18:36 102 H 19 118/54 L 02/18/19 18:30 104 H 23 02/18/19 18:28 107 H 21 02/18/19 18:21 36.6 C 104 H 14 118/54 L 02/18/19 17:45 36.9 C 105 H 21 121/61 02/18/19 17:35 36.9 C 104 H 19 132/49 L 02/18/19 17:25 36.9 C 106 H 20 135/59 L 02/18/19 17:15 106 H 21 134/66 02/18/19 17:05 100 H 17 123/53 L 02/18/19 16:55 105 H 16 126/71 02/18/19 16:48 36.5 C 101 H 10 L 122/58 L Pulse Ox Pulse Ox 02/19/19 15:28 100 02/19/19 14:13 98 02/19/19 12:59 94 02/19/19 11:16 90 02/19/19 10:53 94 94 02/19/19 07:56 90 02/19/19 03:25 94 02/19/19 03:15 94 02/19/19 03:00 95 02/19/19 02:45 95 02/19/19 02:30 94 02/19/19 02:15 94 02/19/19 02:00 92 02/19/19 01:45 94 02/19/19 01:30 94 02/19/19 01:15 88 L 02/19/19 01:01 92 02/19/19 01:00 91 02/19/19 00:45 90 02/19/19 00:30 91 02/19/19 00:15 91 02/19/19 00:10 92 02/19/19 00:00 93 02/18/19 23:50 89 L 02/18/19 23:45 89 L 02/18/19 23:40 86 L 02/18/19 23:39 94 02/18/19 23:30 83 L 02/18/19 23:20 90 02/18/19 23:15 88 L 02/18/19 23:10 90 02/18/19 23:00 91 02/18/19 22:50 88 L 02/18/19 22:45 89 L 02/18/19 22:40 91 02/18/19 22:30 90 02/18/19 22:20 92 02/18/19 22:15 92 02/18/19 22:10 92 02/18/19 22:02 84 L 02/18/19 22:01 85 L 02/18/19 22:00 86 L 02/18/19 21:46 89 L 02/18/19 21:45 89 L 02/18/19 21:30 89 L 02/18/19 21:16 88 L 02/18/19 21:15 90 02/18/19 21:00 92 02/18/19 20:45 92 02/18/19 20:30 92 02/18/19 20:15 93 02/18/19 20:00 93 02/18/19 19:45 93 02/18/19 19:35 96 02/18/19 19:30 97 02/18/19 19:15 96 02/18/19 19:00 97 02/18/19 18:45 97 02/18/19 18:36 98 02/18/19 18:30 96 02/18/19 18:28 96 02/18/19 18:21 97 02/18/19 17:45 96 02/18/19 17:35 95 02/18/19 17:25 93 02/18/19 17:15 92 02/18/19 17:05 100 02/18/19 16:55 98 02/18/19 16:48 95 Pre-Sedation Airway Assessment Smoking Status: Current every day smoker (STARTED AT 17 YEARS OLD) Thyromental Distance: > or= 3.5 Finger Breadths Mallampati Class: II Notes The planned sedation has been discussed with the patient. Informed Consent was o btained. I have identified the patient, determined the appropriateness of sedation and have assessed the patient immediately prior to the procedure. All medicine(s) and interventions are by my order. Patient to have secured airway for procedure. Medications to be given during procedure will include fentanyl and propofol.
[2019-02-19] MEDS ORDERED: VECURONIUM BROMIDE 10 MG VIAL IV STA (16:23)
[2019-02-19] MEDS ORDERED: RAPID SEQUENCE INDUCTION BAG ONE (16:28)
--- NOTE | 2019-02-19 16:34 | XRay Report ---
XR chest 1V portable HISTORY: hypoxia COMPARISON: Chest 02/19/2019. FINDINGS: There are 2 left-sided chest tube which remain unchanged in position. These terminate withi n the left upper lung zone. Small left hydropneumothorax is again noted. There is progressive opacifi cation within the left hemithorax. Cervical spinal fusion hardware is noted. Interval progression of the interstitial and vascular thickening within the right lung. There is a trace right pleural effusi on, unchanged. IMPRESSION: 1. Small left hydropneumothorax and left-sided chest tubes are again noted. 2. Progressive opacification within the left hemithorax. This could be due to increasing pleural effu coleman or consolidation. 3. Slight progression of the right-sided pulmonary edema. Trace right pleural effusion persists. Electronically signed by: Edwin Gant M.D. 02/19/2019 4:32 PM
[2019-02-19] MEDS: fentaNYL citrate 100 MCG/2 ML VIAL IV PRN ×3 (16:45→23:42)
--- NOTE | 2019-02-19 17:08 | Post Operative Brief Note ---
Immediate Post Op Note v1 Date of Surgery February 19, 2019 Pre & Post Diagnosis Operation Date: 02/19/19 07:30 PRE AND POST OP DIAGNOSIS: ATELECTESIS WITH COLLAPSE LLL S/P LEFT UPPER LOBECTOMY. Procedure Operation Date: 02/19/19 07:30 Actual Procedures FIBER OPTIC BRONCHOSCOPY Surgeon Jeremy Myers MD, FACS Director Compliance MIKE SCHMIDT Estimated Blood Loss 500 Findings Consistent with Post-Op Diagnosis
--- NOTE | 2019-02-19 17:31 | Critical Care Consultation ---
Date of Consultation February 19, 2019 Assessment & Plan (1) GERD (gastroesophageal reflux disease): (2) Lung malignancy: Reason Critically Ill: 69-year-old male status post left upper lobectomy w/ chest tube on 02/18 who became hypoxic and chest x-ray showed complete consolidation of left lung. Was transferred to ICU where he was intubated and bronched. We will leave intubated overnight for repeat bronc in the morning. Neuro - [facility]: Positive, sedated with propofol and fentanyl EtOH abusereportedly drinks 18 beers per day -AWSS protocol -We will remain sedated with propofol and fentanyl overnight -Q4-hour beer -PRN Ativan -Multivitamin Cardiac - CADcontinue aspirin, Lipitor HTNcontinue Norvasc Respiratory - Small cell lung cancerstatus post left upper lobectomy with chest tube 02/18 -Chest x-ray revealed left lung consolidation, bronched this afternoon -BAL/Gram stain pending -Plan to leave intubated overnight and repeat bronc in the morning -Follow-up repeat chest x-ray -We will obtain ABG COPDintubated with 8.0 ETT, AC VC 12/450/5/100%, collecting ABG will wean O2 -AA nebs as needed -We will continue home Symbicort, Spiriva, Claritin regimen when appropriate GI GERDcontinue PPI RENAL/LYTES - D5W and half normal saline at 80 mL/h Routine BMPs, maximize electrolytes and replete as necessary Stenosis - BPHFoley inserted, continue prazosin ENDO - No history diabetes, ICU hyperglycemic protocol HEME - Anemic, H&H stable, will monitor with routine CBCs and transfuse if necessary Leukocytosisimproving, continue to monitor ID - No indication for this time Follow-up BAL and culture LINES/IV ACCESS - Peripheral IVs, Shafer, OG tube, ETT, chest tube DVT PROPHYLAXIS - SCDs, holding Lovenox overnight per surgical team instruction (3) COPD (chronic obstructive pulmonary disease): (4) CAD (coronary artery disease): (5) BPH (benign prostatic hyperplasia): (6) Alcohol abuse: Supervising Physician Co-Signing Physician Notes I have personally evaluated and examined this patient. I agree with assessment and plan of Ryan VLAENTE. Patient met extubation parameters following bronchoscopy which was largely unremarkable for mucoid impaction. Patient's acute hypoxic respiratory failure improved secondary to bronchoscopy yesterday. Status post extubation patient had increasing oxygen requirements, we will attempt to bridge him with noninvasive mechanical ventilation for respiratory insufficiency. Patient is critically ill. DVT prophylaxis on hold today per recommendation of thoracic surgery given blood loss requiring transfusion yesterday. Patient was discussed in multidisciplinary rounds, I discussed the case with Dr. Myers. I have personally spent 45 minutes of critical care time in the direct management of this patient. This is a life/limb threatening event. This includes time spent evaluating patient, direct bedside care, chart review, placing orders, interpretation of diagnostic studies, discussion with consultants, patient, and/or family members regarding treatment decisions, as well as other required patient management activities. This time is exclusive of all separately billable procedures, and teaching time and separate from and in addition to any other critical care service time. Clinical update: Patient had significant hypercarbic respiratory failure requiring reintubation. Sent for CT scan to rule out PE given VQ mismatch. History of Present Illness Attending Physician: Jeremy Myers MD, [facility] History of Present Illness 69-year-old male past medical history significant for smoking, alcohol abuse (reportedly 18 beers per day), COPD, CAD, GERD, small cell lung cancer status post left upper lobectomy as of 02/18/19. Currently has a left chest tube. Patient reportedly became hypoxic and chest x-ray revealed progressive left opacification consistent with consolidation versus pleural effusion. Patient was transported to ICU for intubation for bronchoscopy. Patient intubated with 8.0 at 22 cm at the lips. Bronchoscope confirmed placement, patient therapeutically bronched and sample obtained from left lower lobe. Was found to have copious secretions. Currently patient is intubated and sedated. Hemodynamically stable. Plan is for patient to remain in ICU overnight and will form bronchoscope be again in the morning. Allergies Allergy/AdvReac Type Severity Reaction Status Date / Time Penicillins Allergy Intermediate NECK Verified 02/18/19 06:21 SWELLS, RASH Sulfa (Sulfonamide Allergy Mild RASH Verified 02/18/19 06:21 Antibiotics) Home Medications Home Medications Medication Instructions Recorded Confirmed Type Spiriva with HandiHaler 1 cap INHALATION QAM 12/17/18 02/18/19 History Symbicort 2 puff INHALATION BID 12/17/18 02/18/19 History amlodipine 10 mg PO HS 12/17/18 02/18/19 History aspirin [Aspir-81] 81 mg PO [facility] 12/17/18 02/18/19 History atorvastatin 80 mg PO 12/17/18 02/18/19 History calcium polycarbophil [Fiber 1 tab PO [facility] 12/17/18 02/18/19 History (calcium polycarbophil)] cyanocobalamin (vitamin B-12) 2,500 mcg PO [facility] 12/17/18 02/18/19 History fluticasone propionate [Flonase 2 spray INTRANASAL [facility] 12/17/18 02/18/19 History Allergy Relief] loratadine 10 mg PO [facility] 12/17/18 02/18/19 History lorazepam [Ativan] 0.5 mg PO BID PRN 12/17/18 02/18/19 History multivitamin 1 tab PO [facility] 12/17/18 02/18/19 History omeprazole 40 mg PO [facility] 12/17/18 02/18/19 History paroxetine HCl 30 mg PO [facility] 12/17/18 02/18/19 History potassium 99 mg PO 12/17/18 02/18/19 History prazosin 5 mg PO 12/17/18 02/18/19 History tramadol [Ultram] 50 mg PO QID PRN #18 tab 12/26/18 02/18/19 Rx Patient History Medical History ASCVD (arteriosclerotic cardiovascular disease) Anxiety BPH (benign prostatic hyperplasia) CAD (coronary artery disease) Cancer SMALL B-CELL LYMPHOMA CHRONIC LYMPHOCYCTIC LEUKEMIA Chronic obstructive pulmonary disease GERD (gastroesophageal reflux disease) Hyperlipidemia Hypertension Migraine HX Osteoarthritis Post traumatic stress disorder SOB (shortness of breath) on exertion Surgical History Encounter for biopsy AXILLARY H/O cervical spine surgery PLATES AND SCREWS History of bronchoscopy History of colonoscopy History of lung surgery LEFT WEDGE RESECTION History of tonsillectomy History of tooth extraction Ulnar nerve entrapment SURGERY R/L Social History Communication Ability: Effective Beliefs That Will Affect Care: None marital status: Current Living Situation: Spouse Other Information That Helps Us Care for You: No Feels Safe at Home: Yes Safety Concerns: Feels Safe At This Time Smoking Status: Current every day smoker (STARTED AT 17 YEARS OLD) Hx Alcohol Use: Yes Hx Substance Use: No Review of Systems Unable to obtain 12 system ROS secondary to intubation and sedation Physical Exam Vital Signs (Past 24 Hours): Last Vital Signs Temp 36.7 C 02/19/19 15:28 Pulse 111 H 02/19/19 15:28 Resp 20 02/19/19 15:28 BP 125/66 02/19/19 15:28 Pulse Ox 100 02/19/19 16:00 Constitutional: Sedated Eyes: PERRL, conjunctivae normal, anicteric sclerae ENMT: 8.0 ETT at 22 cm at the lips Neck: trachea midline, no thyromegaly Respiratory: Right middle upper and lower lobes coarse with auscultation, left upper and lower lobes diminished with auscultation. Symmetrical chest wall movement Cardiovascular: RRR, no murmur, no edema Heart Sounds: normal S1 and normal S2 Gastrointestinal (Abdomen): normal bowel sounds, soft, nontender, no hepatosplenomegaly Neurologic: sedated, PERRLA Genitourinary: Indwelling Shafer, adequate urine output Results & Data Laboratory Results Laboratory Results - last 24 hr 02/18/19 02/18/19 02/18/19 06:33 17:23 17:23 WBC 21.57 H RBC 3.39 L Hgb 9.0 L Hct 27.9 L MCV 82.3 MCH 26.5 MCHC 32.3 RDW Std Deviation 46.2 RDW Coeff of Nguyen 15.3 H Plt Count 674 H MPV 8.5 Immature Gran % (Auto) 2.3 Neut % (Auto) 90.6 Lymph % (Auto) 3.5 Bee % (Auto) 3.5 Eos % (Auto) 0.0 Baso % (Auto) 0.1 Immature Gran # (Auto) 0.49 H Neut # (Auto) 19.55 H Lymph # (Auto) 0.76 L Bee # (Auto) 0.75 H Eos # (Auto) 0.00 Baso # (Auto) 0.02 Hypochromasia Sodium 131 L Potassium 5.7 H Chloride 101 Carbon Dioxide 22 Anion Gap 8.0 BUN 10 Creatinine 0.79 Est Cr Clr Drug Dosing 86.6 Est GFR ( Amer) 106.9 Est GFR (Non-Af Amer) 92.3 BUN/Creatinine Ratio 12.3 Glucose 142 H Calcium 8.3 L Folate Blood Type O Positive Antibody Screen NEGATIVE Crossmatch See Detail 02/19/19 02/19/19 02/19/19 06:43 06:43 16:14 WBC 13.48 H RBC 3.20 L Hgb 8.4 L Hct 26.0 L MCV 81.3 MCH 26.3 MCHC 32.3 RDW Std Deviation 44.8 RDW Coeff of Nguyen 15.1 H Plt Count 603 H MPV 8.7 Immature Gran % (Auto) 1.1 Neut % (Auto) 80.9 Lymph % (Auto) 7.2 Bee % (Auto) 10.5 Eos % (Auto) 0.1 Baso % (Auto) 0.2 Immature Gran # (Auto) 0.15 H Neut # (Auto) 10.91 H Lymph # (Auto) 0.97 L Bee # (Auto) 1.41 H Eos # (Auto) 0.01 Baso # (Auto) 0.03 Hypochromasia Present Sodium 132 L Potassium 4.3 D Chloride 101 Carbon Dioxide 26 Anion Gap 5.0 BUN 9 Creatinine 0.75 Est Cr Clr Drug Dosing 91.2 Est GFR ( Amer) 109.2 Est GFR (Non-Af Amer) 94.3 BUN/Creatinine Ratio 12.2 Glucose 118 H Calcium 7.7 L Folate 17.55 Blood Type Antibody Screen Crossmatch Medications Administered Home Medications Spiriva with HandiHaler 1 cap INHALATION [facility] 12/17/18 [History Confirmed 02/18/19] Symbicort 2 puff INHALATION BID 12/17/18 [History Confirmed 02/18/19] amlodipine 10 mg PO 12/17/18 [History Confirmed 02/18/19] aspirin [Aspir-81] 81 mg PO [facility] 12/17/18 [History Confirmed 02/18/19] atorvastatin 80 mg PO 12/17/18 [History Confirmed 02/18/19] calcium polycarbophil [Fiber (calcium polycarbophil)] 1 tab PO [facility] 12/17/18 [History Confirmed 02/18/19] cyanocobalamin (vitamin B-12) 2,500 mcg PO [facility] 12/17/18 [History Confirmed 02/18/19] fluticasone propionate [Flonase Allergy Relief] 2 spray INTRANASAL [facility] 12/17/18 [History Confirmed 02/18/19] loratadine 10 mg PO QAM 12/17/18 [History Confirmed 02/18/19] lorazepam [Ativan] 0.5 mg PO BID PRN 12/17/18 [History Confirmed 02/18/19] multivitamin 1 tab PO QAM 12/17/18 [History Confirmed 02/18/19] omeprazole 40 mg PO QAM 12/17/18 [History Confirmed 02/18/19] paroxetine HCl 30 mg PO QAM 12/17/18 [History Confirmed 02/18/19] potassium 99 mg PO HS 12/17/18 [History Confirmed 02/18/19] prazosin 5 mg PO HS 12/17/18 [History Confirmed 02/18/19] tramadol [Ultram] 50 mg PO QID PRN #18 tab 12/26/18 [Rx Confirmed 02/18/19] Active Medications Albuterol (Duoneb) 3 ml NEB Q4R [facility] Stop: 03/21/19 11:59 Last Admin: 02/19/19 15:15 Dose: 3 ml Documented by: Amlodipine Besylate (Norvasc) 10 mg PO [facility] Stop: 03/20/19 20:59 Last Admin: 02/18/19 20:54 Dose: 10 mg Documented by: [facility]ir[facility] ([facility]cotrin [facility]ctab) [facility] [place]: 03/21/19 08:59 Last Admin: 02/19/19 09:55 Dose: 81 mg Documented by: Atorvastatin Calcium (Lipitor) 80 mg PO [facility] Stop: 03/20/19 20:59 Last Admin: 02/18/19 20:45 Dose: 80 mg Documented by: Budesonide/Formoterol Fumarate (Symbicort 160mcg/4.5mcg) 2 puffs INH BID [facility] Stop: 03/20/19 20:59 Last Admin: 02/19/19 09:15 Dose: 2 puffs Documented by: Calcium Polycarbophil (Fibercon) 1 tab PO QAM [facility] Stop: 03/21/19 08:59 Last Admin: 02/19/19 09:56 Dose: 1 tab Documented by: Cyanocobalamin (Vitamin B-12) 2,500 mcg PO QAM [facility] Stop: 03/21/19 08:59 Last Admin: 02/19/19 09:58 Dose: 2,500 mcg Documented by: Docusate Sodium (Colace) 100 mg PO BID [facility] Stop: 03/20/19 20:59 Last Admin: 02/19/19 09:55 Dose: 100 mg Documented by: Enoxaparin Sodium (Lovenox) 40 mg SQ [facility] Stop: 03/21/19 08:59 Last Admin: 02/19/19 09:56 Dose: 40 mg Documented by: Fentanyl Citrate (Fentanyl Citrate) 100 mcg IV Q2H PRN PRN Reason: Severe Pain (7,8,9,10) Stop: 03/05/19 16:22 Fluticasone Propionate (Flonase) 2 sprays NA [facility] Stop: 03/20/19 18:20 Last Admin: 02/19/19 09:56 Dose: 2 sprays Documented by: Lorazepam (Ativan) 1 mg in 2 mls @ 2 mls/min IV ONE PRN; Protocol PRN Reason: EtoH Withdrawal [facility] 6-10 Stop: 03/21/19 15:59 Dextrose/Sodium Chloride (D5w And 1/2nss) 1,000 mls @ 80 mls/hr IV .[id number] [facility] Stop: 03/21/19 16:14 Propofol (Diprivan) 1,000 mg in 100 mls @ 2.055 mls/hr IV .Q24H [facility]; Protocol Stop: 02/22/19 16:29 Ketorolac Tromethamine (Toradol) 15 mg IV Q8H [facility] Stop: 02/20/19 08:46 Last Admin: 02/19/19 09:02 Dose: 15 mg Documented by: Loratadine (Claritin) 10 mg PO [facility] Stop: 03/21/19 08:59 Last Admin: 02/19/19 09:55 Dose: 10 mg Documented by: Lorazepam (Ativan) 0.5 mg PO BID PRN PRN Reason: Anxiety Stop: 03/20/19 18:20 Last Admin: 02/19/19 14:20 Dose: 0.5 mg Documented by: Morphine Sulfate (Morphine Sulfate) 1 - 2 mg IV Q1H PRN PRN Reason: Pain Stop: 03/04/19 16:43 Multivitamins (Multivitamin Tab) 1 tab PO [facility] Stop: 03/21/19 08:59 Last Admin: 02/19/19 09:57 Dose: 1 tab Documented by: Non-Formulary Medication (Beer) 1 can PO Q4 PRN PRN Reason: Alcohol Withdrawal Stop: 03/20/19 19:59 Ondansetron HCl (Zofran) 4 mg IV Q4H PRN PRN Reason: Nausea And Vomiting Stop: 03/20/19 16:43 Ondansetron HCl (Zofran) 4 mg IV Q6H PRN PRN Reason: Nausea Stop: 03/20/19 18:20 Oxycodone/Acetaminophen (Percocet 5mg/325mg) 1 - 2 tab PO Q3H PRN PRN Reason: Pain Stop: 03/04/19 16:43 Pantoprazole Sodium (Protonix) 40 mg PO QAM [facility] Stop: 03/20/19 18:20 Last Admin: 02/19/19 09:58 Dose: 40 mg Documented by: Paroxetine HCl (Paxil) 30 mg PO QAM [facility] Stop: 03/21/19 08:59 Last Admin: 02/19/19 09:57 Dose: 30 mg Documented by: Prazosin HCl (Prazosin Hcl) 5 mg PO HS [facility] Stop: 03/20/19 20:59 Last Admin: 02/18/19 20:44 Dose: 5 mg Documented by: Tiotropium Sunflower (Spiriva) 1 puffs INH QAM [facility] Stop: 03/21/19 08:59 Last Admin: 02/19/19 09:17 Dose: 1 puffs Documented by: Tramadol HCl (Ultram) 50 mg PO QID PRN PRN Reason: pain Stop: 03/20/19 18:20 Last Admin: 02/19/19 04:04 Dose: 50 mg Documented by:
--- NOTE | 2019-02-19 17:32 | XRay Report ---
XR chest 1V portable CLINICAL HISTORY: Status post fiberoptic bronchoscopy. COMPARISON STUDY: 01/22/2019 FINDINGS: There is an endotracheal tube 37 mm above the eris. There is a nasogastric tube within th e stomach. There are 2 left-sided chest tubes. There is extensive opacification of the left hemithora x with minimal increased aeration. Right lung airspace opacities with a basilar predominance persist. Bilateral pleural effusions left greater than right are suspected.[There is a tiny gas collection ne ar the left apex, possibly representing a small loculated pneumothorax IMPRESSION: 1. Suspected small loculated left apical pneumothorax 2. Extensive opacification left hemithorax with minimal improved aeration 3. Persistent right lung opacities with a basilar predominance 3. Bilateral pleural effusions left greater than right Electronically signed by: Maynor Albright M.D. 02/19/2019 5:31 PM
[2019-02-19 18:28] LABS: iSTAT Allen Test Pass; iSTAT Arterial Blood Gas HCO3 28 meg/L (19-24); iSTAT Arterial Blood Gas pCO2 67 mmHg (35-46); iSTAT Arterial Blood Gas pH 7.23 (7.35-7.45); iSTAT Carbon Dioxide 30 mEq/l (24-31); iSTAT FiO2 100 %; iSTAT Site L Radial
[2019-02-19] MEDS: PROPOFOL IV EMULSION 10 MG/ML 100 ML VIAL IV ONE ×2 (18:44→19:10)
[2019-02-19] MEDS: D5W AND 1/2NSS 1,000 ML IV SCH (18:47)
[2019-02-19] MEDS: PROPOFOL 1,000 MG/100 ML VIAL IV SCH ×3 (18:49→22:01)
--- NOTE | 2019-02-19 19:24 | Progress Note ---
DATE: 02/19/2019 Mr. Lomas was seen today. He had a very long arduous case yesterday. Fairly stable night until last night he suddenly appeared to decompensate, although he settled down with high-flow oxygen. I discussed this with the nurses several times and saw him early this morning. He seemed better but was wheezing more and I asked Dr. Alton Holman to look at him. In addition, I was quite concerned about his x-ray. It appeared he had a smaller pneumothorax and had some fluid that was drained of sero bloody fluid from his catheter. Hemoglobin this morning was 8.4. We are going to repeat that this evening. Over the course of the day he became worse and had to go on BiPAP. He improved, but I repeated an x-ray this afternoon. He completely opacified his left side. For this reason and because of his tenuous oxygenation I moved him down to the intensive care unit where Dr. Austin Virk expertly intubated him. I then performed a therapeutic bronchoscopy and he had some sputum in his right airway, but really had a large amount of thick yellow sputum in his left airway with some old blood. I suctioned this out and saw our staple line was fine. He irrigated fairly quickly, although the sputum was tenacious. His x-ray showed some improvement in the aeration of the lower lobe. This was discussed with the patient and his several times over the course of the day. Currently his heart rate is in the low 100s. Blood pressures were in the 120s. He is on a ventilator right now and is on decreasing amounts of oxygen, 95% sat. He does have more rhonchi with less wheezing on exam. ASSESSMENT AND PLAN: Postop day #1, status post reoperative robot-assisted left upper lobectomy with mediastinal lymphadenectomy. Needless to say I am concerned about this turn of events. The case itself was very difficult and his lung was trapped. We did do a decortication that was difficult. He had an air leak and surprisingly he has no air leak now. This is even after I bronchoscoped him and our x-ray shows better aeration, although still markedly consolidated. We are going to keep him on the ventilator overnight and bronch him again in the morning if I am concerned. In addition, the patient has more drainage from his chest tube than I think he should despite the fact he had quite a dissection. We are going to repeat a hemoglobin and transfuse him if necessary. Alcohol dependence. Dr. Austin Virk will handle this from the tour coordinator standpoint. As stated, I did discuss this with the patient's multiple times and I am quite concerned about him and I have relayed my concern. NEFTALY
[2019-02-19 19:56] LABS: Hematocrit (blood only) 22.8 % (42-52); Hemoglobin 7.5 g/dL (14.0-18.0)
[2019-02-19] MEDS ORDERED: SODIUM CHLORIDE 0.9% 250 ML IV PRN (20:02)
[2019-02-19 20:25] LABS: iSTAT Allen Test Pass; iSTAT Arterial Blood Gas HCO3 26 meg/L (19-24); iSTAT Arterial Blood Gas pCO2 47 mmHg (35-46); iSTAT Arterial Blood Gas pH 7.35 (7.35-7.45); iSTAT Carbon Dioxide 27 mEq/l (24-31); iSTAT FiO2 50 %; iSTAT Site R Radial
[2019-02-19] MEDS: LEVOFLOXACIN/D5W 750 MG/150 ML BAG IV SCH (20:32)
[2019-02-19] MEDS: PRAZOSIN HCL 1 MG CAP PO SCH (20:35)
[2019-02-19] MEDS: AMLODIPINE BESYLATE 5 MG TAB PO SCH (21:40)
[2019-02-19] MEDS: ATORVASTATIN 40 MG TAB PO SCH (21:40)
[2019-02-20] MEDS: fentaNYL citrate 100 MCG/2 ML VIAL IV PRN (01:19)
[2019-02-20] MEDS: PROPOFOL 1,000 MG/100 ML VIAL IV SCH ×6 (01:21→23:08)
[2019-02-20 01:35] LABS: Hematocrit (blood only) 25.7 % (42-52); Hemoglobin 8.5 g/dL (14.0-18.0)
--- NOTE | 2019-02-20 01:53 | Operative Report ---
DATE OF OPERATION: 02/19/2019 PROCEDURE: Therapeutic fiberoptic bronchoscopy. SURGEON: Jeremy Myers MD THEATER TECHNICIAN: Vijaya Pardo RRT ANESTHESIA: Sedation. SPECIFICS OF PROCEDURE: Please refer to my progress note. I am quite concerned about the patient. He has had respiratory collapse 24 hours after an extremely arduous reoperative completion left upper lobectomy. He is quite ill and took a turn for the worst several hours after surgery. I felt that he had probable atelectasis, some sputum inspissation and due to his continuous oxygenation, he was taken to the Intensive Care Unit and intubated and I performed a fiberoptic bronchoscopy and removed a tremendous amount of purulent sputum which was sent for Gram stain and culture. He has been placed on antibiotics. I also removed some old blood. Airways cleared quite nicely. He had better aeration of his left lower lobe afterwards. The stump appeared fine. We did irrigate out both bronchial trees and they cleared quite quickly. His airways did not appear inflamed. I attest to the content of the Intraoperative Record and any orders documented therein. Any exceptions are noted below. NEFTALY
[2019-02-20] MEDS: ALBUT/IPRATROP 3MG/0.5MG NEB 3 ML VIAL NEB SCH ×6 (04:00→23:27)
[2019-02-20 04:57] LABS: Hematocrit (blood only) 25.4 % (42-52); Hemoglobin 8.3 g/dL (14.0-18.0); Mean Corpuscular Hgb Conc 32.7 g/dL (32-36); Mean Corpuscular Volume 83.6 fL (80-100); Mean Platelet Volume 8.4 fL (7.4-10.4); Platelet Count 510 K/uL (130-400); RDW Coefficient of Variation 15.5 % (11.5-14.5); RDW Standard Deviation 47.5 fL (36.4-46.3); Red Blood Count 3.04 M/uL (4.7-6.1); White Blood Count 29.63 K/uL (4.8-10.8)
[2019-02-20 05:00] LABS: BUN Creatinine Ratio 13.1 (10-20); Calcium 7.4 mg/dl (8.5-10.1); Creatinine Clr Calc Pharmacy 105.2 ml/min; Est GFR (African American) 115.9; Phosphorus 3.5 mg/dl (2.5-4.9); Potassium 4.7 mmol/L (3.5-5.1)
[2019-02-20] MEDS: D5W AND 1/2NSS 1,000 ML IV SCH ×2 (05:16→17:56)
[2019-02-20 05:25] LABS: Basophils # (auto) 0.01 K/uL (0-0.2); Immature Granulocytes # (auto) 0.19 K/uL (0.00-0.02); Immature Granulocytes % (auto) 0.6 %; Lymphocytes # (auto) 1.07 K/uL (1.2-3.4); Lymphocytes % (auto) 3.6 %; Monocytes % (auto) 6.7 %; Neutrophils # (auto) 26.36 K/uL (1.4-6.5); Neutrophils % (auto) 89.1 %; RBC Morphology Unremarkable
[2019-02-20 05:28] LABS: iSTAT Allen Test Pass; iSTAT Arterial Blood Gas HCO3 27 meg/L (19-24); iSTAT Arterial Blood Gas pCO2 65 mmHg (35-46); iSTAT Arterial Blood Gas pH 7.23 (7.35-7.45); iSTAT Carbon Dioxide 29 mEq/l (24-31); iSTAT FiO2 60 %; iSTAT Site R Radial
--- NOTE | 2019-02-20 07:00 | Critical Care Progress Note ---
Date of Service February 20, 2019 Assessment & Plan (1) GERD (gastroesophageal reflux disease): (2) Lung malignancy: Reason Critically Ill: 69-year-old male status post left upper lobectomy w/ chest tube on 02/18 who became hypoxic and chest x-ray showed complete consolidation of left lung. transferred to ICU where he was intubated and bronched. Review from this morning and extubated. Failed CPAP and required reintubation. Increase respiratory acidosis taken for chest CT. Neuro - [facility] ICU: Positive, sedated with propofol and fentanyl EtOH abusereportedly drinks 18 beers per day -AWSS protocol -We will remain sedated with propofol and fentanyl overnight -Q4-hour beer -PRN Ativan -Multivitamin, folate, thiamine -We will consider phenobarbital when off sedation Cardiac - CADcontinue aspirin, Lipitor HTNcontinue Norvasc Respiratory - Small cell lung cancerstatus post left upper lobectomy with chest tube 02/18 -Left chest tube to drainage, left Pleurx cath COPD/mucoid impaction/hypercarbichypoxic respiratory failure/pneumonia: Chest x-ray revealed slight left lung consolidation, bronched yesterday afternoon, re- bronched this a.m. -Morning chest x-ray showed improved consolidation in left lung -Extubated this morning, failed CPAP, required reintubation (8.0 ETT at 24 at the lips) -Repeat ABG showed hypercapnic respiratory acidosis -Obtaining chest CT -BAL grew GNRMoraxella catarrhalis, continuing Levaquin -AA nebs -We will continue home Symbicort, Spiriva, Claritin regimen when appropriate GI GERDcontinue PPI RENAL/LYTES - D5W and half normal saline at 80 mL/h Routine BMPs, maximize electrolytes and replete as necessary - BPHFoley inserted, continue prazosin ENDO - No history diabetes, ICU hyperglycemic protocol HEME - Acute blood loss anemia requiring 1 unit RBCs overnight -H&H stable this a.m., will monitor with routine CBCs and transfuse if necessary ID - Levaquin LINES/IV ACCESS - Peripheral IVs, Shafer, OG tube, ETT, chest tube, Pleurx cath DVT PROPHYLAXIS - SCDs (3) COPD (chronic obstructive pulmonary disease): (4) CAD (coronary artery disease): (5) BPH (benign prostatic hyperplasia): (6) Alcohol abuse: Supervising Physician Co-Signing Physician Notes I have personally evaluated and examined this patient. I agree with assessment and plan of Ryan VALENTE. Patient met extubation parameters following bronchoscopy which was largely unremarkable for mucoid impaction. Patient's acute hypoxic respiratory failure improved secondary to bronchoscopy yesterday. Status post extubation patient had increasing oxygen requirements, we will attempt to bridge him with noninvasive mechanical ventilation for respiratory insufficiency. Patient is critically ill. DVT prophylaxis on hold today per recommendation of thoracic surgery given blood loss requiring transfusion yesterday. Patient was discussed in multidisciplinary rounds, I discussed the case with Dr. Myers. I have personally spent 45 minutes of critical care time in the direct management of this patient. This is a life/limb threatening event. This includes time spent evaluating patient, direct bedside care, chart review, placing orders, interpretation of diagnostic studies, discussion with consultants, patient, and/or family members regarding treatment decisions, as well as other required patient management activities. This time is exclusive of all separately billable procedures, and teaching time and separate from and in addition to any other critical care service time. Clinical update: Patient had significant hypercarbic respiratory failure requiri ng reintubation. Sent for CT scan to rule out PE given VQ mismatch. Subjective 69-year-old male past medical history significant for smoking, alcohol abuse (reportedly 18 beers per day), COPD, CAD, GERD, small cell lung cancer status post left upper lobectomy as of 02/18/19. Currently has a left chest tube. Patient reportedly became hypoxic and chest x-ray revealed progressive left opacification consistent with consolidation versus pleural effusion. Patient was transported to ICU for intubation for bronchoscopy. Patient intubated with 8.0 at 22 cm at the lips. Bronchoscope confirmed placement, patient therapeutically bronched and sample obtained from left lower lobe. Was found to have copious secretions. Plan was to leave intubated in ICU overnight and repeat [facility] in the morning. This morning patient was therapeutically bronched this morning and extubated approximately 1 hour afterwards. The patient became tachypneic with labored shallow breathing, increasingly drowsy. He was placed on CPAP with little improvement, and was reintubated. Currently he is hemodynamically stable, ventilated and sedated. ABG revealed hypercapnic respiratory acidosis, ventilator rate increased and stat CT chest ordered. We will follow-up. Patient will remain in ICU for now for management of ventilator/respiratory failure. Review of Systems Unobtainable due to endotracheal tube and Unobtainable due to reduced consciousness Physical Exam Vital Signs (Past 24 Hours): Last Vital Signs Temp 36.9 C 02/20/19 04:00 Pulse 114 H 02/20/19 06:00 Resp 19 02/20/19 05:21 BP 101/51 L 02/20/19 06:00 Pulse Ox 97 02/20/19 06:00 Constitutional: Intubated and sedated Eyes: PERRL, conjunctivae normal, anicteric sclerae Neck: trachea midline, no thyromegaly Respiratory: ETT 8.0 inserted to 24 cm at the lips, left upper and lower lobes diminished and coarse with auscultation, right upper middle and lower lobes coarse. Symmetrical chest wall movement. Left chest tube to gravity. Left Pleurx catheter Cardiovascular: RRR, no murmur, no edema Heart Sounds: normal S1 and normal S2 Vessels: no JVD Extremities: no edema Gastrointestinal (Abdomen): normal bowel sounds, soft, nontender, no hepatosplenomegaly Neurologic: Intubated and sedated, PERRLA, follows commands Genitourinary: Indwelling Shafer catheter, adequate urine output Results & Data Laboratory Results Laboratory Results - last 24 hr 02/18/19 02/19/19 02/19/19 06:33 16:14 18:00 WBC RBC Hgb Hct MCV MCH MCHC RDW Std Deviation RDW Coeff of Nguyen Plt Count MPV Immature Gran % (Auto) Neut % (Auto) Lymph % (Auto) Frio % (Auto) Eos % (Auto) Baso % (Auto) Immature Gran # (Auto) Neut # (Auto) Lymph # (Auto) Frio # (Auto) Eos # (Auto) Baso # (Auto) RBC Morphology Sample Site POC pH POC pCO2 POC pO2 POC HCO3 POC Total CO2 POC Base Excess POC ABG O2 Sat Kaden Test O2 Delivery Device POC O2 Rate Minute Ventilation POC FiO2 Tidal Volume PEEP Sodium Potassium Chloride Carbon Dioxide Anion Gap BUN Creatinine Est Cr Clr Drug Dosing Est GFR ( Amer) Est GFR (Non-Af Amer) BUN/Creatinine Ratio Glucose Calcium Phosphorus Magnesium Folate 17.55 Nasal Screen MRSA (PCR) Negative Blood Type O Positive Antibody Screen NEGATIVE Crossmatch See Detail 02/19/19 02/19/19 02/19/19 18:15 19:49 20:11 WBC RBC Hgb 7.5 L Hct 22.8 L MCV MCH MCHC RDW Std Deviation RDW Coeff of Nguyen Plt Count MPV Immature Gran % (Auto) Neut % (Auto) Lymph % (Auto) Frio % (Auto) Eos % (Auto) Baso % (Auto) Immature Gran # (Auto) Neut # (Auto) Lymph # (Auto) Frio # (Auto) Eos # (Auto) Baso # (Auto) RBC Morphology Sample Site L Radial R Radial POC pH 7.23 L 7.35 POC pCO2 67 H 47 H POC pO2 307 H 78 L POC HCO3 28 H 26 H POC Total CO2 30 27 POC Base Excess 0.0 0.0 POC ABG O2 Sat 100.0 H 95.0 Kaden Test Pass Pass O2 Delivery Device Ventilator Ventilator POC O2 Rate 12 18 Minute Ventilation 5.4 11.2 POC FiO2 100 50 Tidal Volume 450 450 PEEP 5 5 Sodium Potassium Chloride Carbon Dioxide Anion Gap BUN Creatinine Est Cr Clr Drug Dosing Est GFR ( Amer) Est GFR (Non-Af Amer) BUN/Creatinine Ratio Glucose Calcium Phosphorus Magnesium Folate Nasal Screen MRSA (PCR) Blood Type Antibody Screen Crossmatch 02/20/19 02/20/19 02/20/19 01:28 04:21 04:21 WBC 29.63 H D RBC 3.04 L Hgb 8.5 L 8.3 L Hct 25.7 L 25.4 L MCV 83.6 MCH 27.3 MCHC 32.7 RDW Std Deviation 47.5 H RDW Coeff of Nguyen 15.5 H Plt Count 510 H MPV 8.4 Immature Gran % (Auto) 0.6 Neut % (Auto) 89.1 Lymph % (Auto) 3.6 Frio % (Auto) 6.7 Eos % (Auto) 0.0 Baso % (Auto) 0.0 Immature Gran # (Auto) 0.19 H Neut # (Auto) 26.36 H Lymph # (Auto) 1.07 L Frio # (Auto) 2.00 H Eos # (Auto) 0.00 Baso # (Auto) 0.01 RBC Morphology Unremarkable Sample Site POC pH POC pCO2 POC pO2 POC HCO3 POC Total CO2 POC Base Excess POC ABG O2 Sat Kaden Test O2 Delivery Device POC O2 Rate Minute Ventilation POC FiO2 Tidal Volume PEEP Sodium 133 L Potassium 4.7 Chloride 100 Carbon Dioxide 28 Anion Gap 5.0 BUN 8 Creatinine 0.65 Est Cr Clr Drug Dosing 105.2 Est GFR ( Amer) 115.9 Est GFR (Non-Af Amer) 100.0 BUN/Creatinine Ratio 13.1 Glucose 146 H Calcium 7.4 L Phosphorus 3.5 Magnesium 2.0 Folate Nasal Screen MRSA (PCR) Blood Type Antibody Screen Crossmatch 02/20/19 02/20/19 05:14 11:42 WBC RBC Hgb Hct MCV MCH MCHC RDW Std Deviation RDW Coeff of Nguyen Plt Count MPV Immature Gran % (Auto) Neut % (Auto) Lymph % (Auto) Frio % (Auto) Eos % (Auto) Baso % (Auto) Immature Gran # (Auto) Neut # (Auto) Lymph # (Auto) Frio # (Auto) Eos # (Auto) Baso # (Auto) RBC Morphology Sample Site R Radial R Radial POC pH 7.23 L 7.12 L* POC pCO2 65 H 85 H POC pO2 95 105 H POC HCO3 27 H 28 H POC Total CO2 29 30 POC Base Excess 0.0 -2.0 POC ABG O2 Sat 95.0 95.0 Kdaen Test Pass Pass O2 Delivery Device Ventilator Ventilator POC O2 Rate 18 Minute Ventilation 7.5 POC FiO2 60 70 Tidal Volume 450 PEEP 5 5 Sodium Potassium Chloride Carbon Dioxide Anion Gap BUN Creatinine Est Cr Clr Drug Dosing Est GFR ( Amer) Est GFR (Non-Af Amer) BUN/Creatinine Ratio Glucose Calcium Phosphorus Magnesium Folate Nasal Screen MRSA (PCR) Blood Type Antibody Screen Crossmatch Medications Administered Home Medications Spiriva with HandiHaler 1 cap INHALATION QA 12/17/18 [History Confirmed 02/18/19] Symbicort 2 puff INHALATION BID 12/17/18 [History Confirmed 02/18/19] amlodipine 10 mg PO HS 12/17/18 [History Confirmed 02/18/19] aspirin [Aspir-81] 81 mg PO QAM 12/17/18 [History Confirmed 02/18/19] atorvastatin 80 mg PO HS 12/17/18 [History Confirmed 02/18/19] calcium polycarbophil [Fiber (calcium polycarbophil)] 1 tab PO QAM 12/17/18 [History Confirmed 02/18/19] cyanocobalamin (vitamin B-12) 2,500 mcg PO QAM 12/17/18 [History Confirmed 02/18/19] fluticasone propionate [Flonase Allergy Relief] 2 spray INTRANASAL QAM 12/17/18 [History Confirmed 02/18/19] loratadine 10 mg PO QAM 12/17/18 [History Confirmed 02/18/19] lorazepam [Ativan] 0.5 mg PO BID PRN 12/17/18 [History Confirmed 02/18/19] multivitamin 1 tab PO QAM 12/17/18 [History Confirmed 02/18/19] omeprazole 40 mg PO QAM 12/17/18 [History Confirmed 02/18/19] paroxetine HCl 30 mg PO QAM 12/17/18 [History Confirmed 02/18/19] potassium 99 mg PO HS 12/17/18 [History Confirmed 02/18/19] prazosin 5 mg PO HS 12/17/18 [History Confirmed 02/18/19] tramadol [Ultram] 50 mg PO QID PRN #18 tab 12/26/18 [Rx Confirmed 02/18/19] Active Medications Albuterol (Duoneb) 3 ml NEB Q4R [facility] Stop: 03/21/19 11:59 Last Admin: 02/20/19 08:20 Dose: 3 ml Documented by: Amlodipine Besylate (Norvasc) 10 mg PO HS [facility] Stop: 03/20/19 20:59 Last Admin: 02/19/19 21:40 Dose: 10 mg Documented by: Aspirin (Aspirin Chew) 81 mg PO DAILY [facility] Stop: 03/23/19 08:59 Atorvastatin Calcium (Lipitor) 80 mg PO HS [facility] Stop: 03/20/19 20:59 Last Admin: 02/19/19 21:40 Dose: 80 mg Documented by: Budesonide/Formoterol Fumarate (Symbicort 160mcg/4.5mcg) 2 puffs INH BID [facility] Stop: 03/20/19 20:59 Last Admin: 02/20/19 11:47 Dose: Not Given Documented by: Calcium Polycarbophil (Fibercon) 1 tab PO QAM [facility] Stop: 03/21/19 08:59 Last Admin: 02/20/19 11:43 Dose: 1 tab Documented by: Cyanocobalamin (Vitamin B-12) 2,500 mcg PO QAM [facility] Stop: 03/21/19 08:59 Last Admin: 02/20/19 11:46 Dose: 2,500 mcg Documented by: Docusate Sodium (Colace) 100 mg PO BID [facility] Stop: 03/22/19 10:59 Last Admin: 02/20/19 11:43 Dose: 100 mg Documented by: Enoxaparin Sodium (Lovenox) [facility] Stop: 03/21/19 08:59 Last Admin: 02/19/19 09:56 Dose: 40 mg Documented by: Fentanyl Citrate (Fentanyl Citrate) 50 mcg IV Q1H PRN PRN Reason: Severe Pain (7,8,9,10) Stop: 03/05/19 16:22 Last Admin: 02/20/19 01:19 Dose: 50 mcg Documented by: Fluticasone Propionate (Flonase) 2 sprays NA [facility] Stop: 03/20/19 18:20 Last Admin: 02/20/19 11:47 Dose: Not Given Documented by: Folic Acid (Folvite) 1 mg PO DAILY [facility] Stop: 03/22/19 08:59 Last Admin: 02/20/19 11:45 Dose: 1 mg Documented by: Lorazepam (Ativan) 1 mg in 2 mls @ 2 mls/min IV ONE PRN; Protocol PRN Reason: EtoH Withdrawal AWSS 6-10 Stop: 03/21/19 15:59 Dextrose/Sodium Chloride (D5w And 1/2nss) 1,000 mls @ 80 mls/hr IV .[id number] [facility] Stop: 03/21/19 16:14 Last Admin: 02/20/19 05:16 Dose: 80 mls/hr Documented by: Propofol (Diprivan) 1,000 mg in 100 mls @ 20.548 mls/hr IV .[id number] [facility]; Protocol Stop: 02/22/19 16:29 Last Admin: 02/20/19 10:39 Dose: 50 mcg/kg/min, 20.5 mls/hr Documented by: Levofloxacin/Dextrose (Levaquin/D5w) 750 mg in 150 mls @ 100 mls/hr IV Q24H [facility] Stop: 02/26/19 19:59 Last Infusion: 02/19/19 22:02 Dose: Infused Documented by: Sodium Chloride (Nss) 250 mls @ 15 mls/hr IV .[id number] PRN PRN Reason: For Transfusion Stop: 03/21/19 20:01 Pantoprazole Sodium 40 mg/ (Syringe) 10 mls @ 5 mls/min IV DAILY@1100 [facility] Stop: 03/22/19 10:59 Last Admin: 02/20/19 11:43 Dose: 5 mls/min Documented by: Loratadine (Claritin) 10 mg PO QAM [facility] Stop: 03/21/19 08:59 Last Admin: 02/20/19 11:43 Dose: 10 mg Documented by: Lorazepam (Ativan) 0.5 mg PO BID PRN PRN Reason: Anxiety Stop: 03/20/19 18:20 Last Admin: 02/19/19 14:20 Dose: 0.5 mg Documented by: Morphine Sulfate (Morphine Sulfate) 1 - 2 mg IV Q1H PRN PRN Reason: Pain Stop: 03/04/19 16:43 Last Admin: 02/20/19 08:33 Dose: 2 mg Documented by: Multivitamins/Minerals (Cerovite Liquid) 15 ml PO DAILY [facility] Stop: 03/23/19 10:59 Non-Formulary Medication (Beer) 1 can PO Q4 PRN PRN Reason: Alcohol Withdrawal Stop: 03/20/19 19:59 Nutritional Formula (Peptamen Intense Vhp) 1,000 ml GT CONT PRN; Protocol PRN Reason: TUBE FEED Stop: 03/22/19 12:14 Ondansetron HCl (Zofran) 4 mg IV Q6H PRN PRN Reason: Nausea Stop: 03/20/19 18:20 Oxycodone/Acetaminophen (Percocet 5mg/325mg) 1 - 2 tab PO Q3H PRN PRN Reason: Pain Stop: 03/04/19 16:43 Paroxetine HCl (Paxil) 30 mg PO QAM [facility] Stop: 03/21/19 08:59 Last Admin: 02/20/19 11:43 Dose: 30 mg Documented by: Prazosin HCl (Prazosin Hcl) 5 mg PO HS [facility] Stop: 03/20/19 20:59 Last Admin: 02/19/19 20:35 Dose: 5 mg Documented by: Thiamine HCl (Vitamin B-1) 100 mg PO DAILY [facility] Stop: 03/22/19 08:59 Last Admin: 02/20/19 11:44 Dose: 100 mg Documented by: Tiotropium [place] (Spiriva) 1 puffs INH QAM [facility] Stop: 03/21/19 08:59 Last Admin: 02/20/19 11:47 Dose: Not Given Documented by: Tramadol HCl (Ultram) 50 mg PO QID PRN PRN Reason: pain Stop: 03/20/19 18:20 Last Admin: 02/19/19 04:04 Dose: 50 mg Documented by:
--- NOTE | 2019-02-20 07:12 | XRay Report ---
XR chest 1V portable HISTORY: 69 years-old Male hypoxia acute hypoxia COMPARISON: Chest radiograph 02/19/2019 TECHNIQUE: Portable AP view of the chest FINDINGS: Cardiomediastinal and hilar silhouettes are unchanged. Endotracheal tube overlies the midline, 5.9 cm superior to the eris. Enteric tube distal tip projects over the abdominal left upper quadrant, lik sadie within the region of the gastric lumen. Postoperative changes of the left lung with lateral left chest wall subcutaneous emphysema. There are 2 left-sided chest tubes noted which appear to be in sta ble positioning. There is improved aeration about the left lung. Extensive bilateral mixed interstiti al and alveolar opacities persist. Unchanged bilateral pleural effusions without definite pneumothora x identified. Degenerative changes about the shoulders and spine. IMPRESSION: 1. Postoperative changes of the left lung with stable positioning of the left-sided chest tubes. 2. No definite pneumothorax. 3. Extensive mixed interstitial and alveolar opacities about the bilateral lungs redemonstrated with mildly improved aeration about the left lung. 3. Small bilateral pleural effusions. The above report was generated using voice recognition software. It may contain grammatical, syntax o r spelling errors. Electronically signed by: Khoa Garcia M.D. 02/20/2019 7:10 AM
[2019-02-20] MEDS: KETOROLAC TROMETHAMINE 15 MG/ML VIAL IV SCH (08:36)
--- NOTE | 2019-02-20 08:38 | Progress Note ---
DATE: 02/20/2019 Mr. Lomas was seen today. He had actually a quiet night after his bronchoscopy last night. Chest tube drainage came down significantly. Over the last 12 hours, he has put out some mild serous fluid. He does not have an air leak today. He sounds better on auscultation, and still has multiple rhonchi. His abdomen is soft. He is sedated on the ventilator. Sequential compression devices were in place. The x-ray today shows much better aeration in the left lower lobe. Despite this, I am concerned and planned to do another bronchoscopy today. ASSESSMENT AND PLAN: Postoperative day #2 status post robot-assisted thoracoscopic completion left upper lobectomy. I remain quite concerned about this patient, his mortality rate is going to be quite high. I discussed this in detail with the patient's .
[2019-02-20] MEDS ORDERED: RAPID SEQUENCE INDUCTION BAG ONE (09:49)
--- NOTE | 2019-02-20 10:12 | Operative Report ---
DATE OF OPERATION: 02/20/2019 PROCEDURE: Therapeutic bronchoscopy. SURGEON: Jeremy Myers MD ANESTHESIA: Sedation. SPECIFICS OF PROCEDURE: The patient is on a ventilator. He has stabilized overnight. I performed a flexible bronchoscopy last night for therapy and he had a large amount of purulent mucus and had some old blood in his left airway. We suctioned this out and he improved overnight but he still sounds rhonchus and I was quite concerned. After appropriate timeout have been called, a flexible bronchoscope was placed through the adapter and his endotracheal tube and trachea were clear. Going down the right side was little surprised that the thick secretions, especially in the upper lobe, which were not present yesterday. I e suctioned out very quickly and I irrigated out all 3 lobes and they cleared quickly. The airways do not seem inflamed. Going down the left side, the bronchial stump was noted. He had very little in the way of any mucus on this side. I suctioned and I irrigated out and got very little sputum. I suctioned out the endotracheal tube under direct vision, slowly removed the bronchoscope. He tolerated it well. I attest to the content of the Intraoperative Record and any orders documented therein. Any exception s are noted below.
--- NOTE | 2019-02-20 11:01 | XRay Report ---
KUB HISTORY: Status post placement of an enteric tube confirm OG tube placement COMPARISON: Chest radiograph of same day FINDINGS: Chest tubes project over the left lung base. An enteric tube is present, distal tip projecting over t he abdominal left upper quadrant within the expected region of the gastric lumen. Dilated air-filled loops of small bowel are seen measuring up to 3.67 m transversely. Air is also noted within the large bowel. No pneumatosis or pneumoperitoneum. No definite urolith. Bilateral pleural effusions. Degener ative changes of the spine, pelvis and hips. IMPRESSION: 1. Distal tip of enteric tube projects over the abdominal left upper quadrant within the region of th e gastric body. 2. Dilated air-filled loops of small bowel are noted about the abdominal left upper quadrant suggesti ve of ileus or enteritis with low-grade small bowel obstruction also within the differential. 3. No pneumatosis or pneumoperitoneum. 4. Bilateral pleural effusions. Electronically signed by: Khoa Garcia M.D. 02/20/2019 10:59 AM
--- NOTE | 2019-02-20 11:02 | XRay Report ---
XR chest 1V portable CLINICAL HISTORY: confirm ETT placement tube position COMPARISON STUDY: 02/20/2019 6:54 AM. FINDINGS: The endotracheal tube is now 3 cm above the eris. Postoperative changes left hemithorax a s well as position of the multiple chest tubes. Unchanged. Continues be a small right effusion with infiltrative changes at the right lung base. There is nasogastric tube within the gastric fundus. IMPRESSION: 1. The endotracheal tube is now 3 cm above the eris. 2. Nasogastric tube within the gastric fundus. 3. All additional findings previously described are stable. The above report was generated using voice recognition software. It may contain grammatical, syntax or spelling errors. Electronically signed by: Jimmie Kaur M.D. 02/20/2019 11:00 AM
[2019-02-20] MEDS: PANTOprazole 40 MG TAB PO SCH (11:34)
[2019-02-20] MEDS: MULTIVITAMIN TAB PO SCH (11:34)
[2019-02-20] MEDS: PANTOprazole 40 MG in SYRINGE 0 ML IV SCH (11:43)
[2019-02-20] MEDS: CALCIUM POLYCARBOPHIL 625MG TAB PO SCH (11:43)
[2019-02-20] MEDS: DOCUSATE SODIUM SYRUP 100 MG/10 ML UDC PO SCH ×2 (11:43→20:10)
[2019-02-20] MEDS: LORATADINE 10 MG TAB PO SCH (11:43)
[2019-02-20] MEDS: PARoxetine HCl 20 MG TAB PO SCH (11:43)
[2019-02-20] MEDS: THIAMINE HCL 100 MG TAB PO SCH (11:44)
[2019-02-20] MEDS: FOLIC ACID 1 MG TAB PO SCH (11:45)
[2019-02-20] MEDS: CYANOCOBALAMIN 500 MCG TABLET (VITAMIN B-12) PO SCH (11:46)
[2019-02-20] MEDS: BUDESONIDE/FORMOTEROL FUMARATE 160/4.5 60 PUFFS/INHALER INH SCH ×3 (11:47→20:17)
[2019-02-20] MEDS: FLUTICASONE PROPIONATE NA SPR 16 GM BTL SCH (11:47)
[2019-02-20] MEDS: TIOTROPIUM BROMIDE 5 PUFF/90 MCG INH INH SCH (11:47)
[2019-02-20 11:56] LABS: iSTAT Allen Test Pass; iSTAT Arterial Blood Gas HCO3 28 meg/L (19-24); iSTAT Arterial Blood Gas pCO2 85 mmHg (35-46); iSTAT Arterial Blood Gas pH 7.12 (7.35-7.45); iSTAT Carbon Dioxide 30 mEq/l (24-31); iSTAT FiO2 70 %; iSTAT Site R Radial
[2019-02-20] MEDS ORDERED: IOVERSOL 100ml IV PRN (13:04)
--- NOTE | 2019-02-20 13:17 | CT Scan Report ---
CT angio chest PE protocol CT DOSE: 545.58 mGycm HISTORY: Chest pain PE TECHNIQUE: Multiaxial CT images of the chest were performed following the intravenous administration of contrast to evaluate the pulmonary arteries. Maximal intensity projection images were also obtaine d. A dose lowering technique was utilized adhering to the principles of ALARA. COMPARISON STUDY: None. FINDINGS: The thoracic aorta is normal in course and caliber. There is moderate prominence of the jhonathan tral pulmonary vasculature suggesting a component of pulmonary arterial hypertension. There is no evidence for main or central pulmonary embolus. There is no evidence for a saddle embolus . There is a very small inferior right lower lobe filling defect involving a third vessel not felt to b e significant clinically area There are 2 left-sided chest tubes 1 small caliber. There are bilateral parenchymal infiltrative changes. There are mild basilar consolidative changes bi laterally. Increased prominence of right basilar parenchymal infiltrate are noted. IMPRESSION: 1. No evidence for significant pulmonary embolus. 2. Prominent central pulmonary vasculature suggesting a component of pulmonary arterial hypertension. 3. 2 left-sided chest tubes with a very small residual left apical pneumothorax. 4. Diffuse bilateral parenchymal infiltrative change with consolidation at the left apex and prominen t infiltrative changes at the right base and to lesser extent left base.. The above report was generated using voice recognition software. It may contain grammatical, syntax or spelling errors. Electronically signed by: Jimmie Kaur M.D. 02/20/2019 1:16 PM
[2019-02-20] MEDS: PEPTAMEN INTENSE VHP 1.0 CAL 1,000 ML BAG GT PRN (13:26)
[2019-02-20] MEDS: ASPIRIN 81 MG ECTAB PO SCH (14:30)
[2019-02-20] MEDS: DOCUSATE SODIUM 100 MG CAP PO SCH (14:30)
[2019-02-20] MEDS ORDERED: SUCCINYLCHOLINE CHLORIDE 20 MG/ML 10 ML VIAL IV ONE (15:59)
[2019-02-20] MEDS ORDERED: SODIUM CHLORIDE 0.9% 10ML FLUSH IV ONE (15:59)
[2019-02-20] MEDS ORDERED: fentaNYL citrate 100 MCG/2 ML VIAL IV ONE (15:59)
[2019-02-20] MEDS: PRAZOSIN HCL 1 MG CAP PO SCH (20:09)
[2019-02-20] MEDS: ATORVASTATIN 40 MG TAB PO SCH (20:09)
[2019-02-20] MEDS: AMLODIPINE BESYLATE 5 MG TAB PO SCH (20:09)
[2019-02-20] MEDS: LEVOFLOXACIN/D5W 750 MG/150 ML BAG IV SCH (20:11)
[2019-02-21] MEDS: PROPOFOL 1,000 MG/100 ML VIAL IV SCH ×5 (03:25→19:56)
[2019-02-21] MEDS: ALBUT/IPRATROP 3MG/0.5MG NEB 3 ML VIAL NEB SCH ×6 (04:20→23:37)
[2019-02-21 05:06] LABS: Basophils # (auto) 0.01 K/uL (0-0.2); Eosinophils # (auto) 0.02 K/uL (0-0.5); Eosinophils % (auto) 0.1 %; Hematocrit (blood only) 26.1 % (42-52); Hemoglobin 8.3 g/dL (14.0-18.0); Immature Granulocytes # (auto) 0.14 K/uL (0.00-0.02); Immature Granulocytes % (auto) 0.7 %; Lymphocytes # (auto) 0.98 K/uL (1.2-3.4); Lymphocytes % (auto) 4.7 %; Mean Corpuscular Hgb Conc 31.8 g/dL (32-36); Mean Corpuscular Volume 85.6 fL (80-100); Mean Platelet Volume 8.7 fL (7.4-10.4); Monocytes # (auto) 1.56 K/uL (0.11-0.59); Monocytes % (auto) 7.5 %; Neutrophils # (auto) 18.21 K/uL (1.4-6.5); Platelet Count 453 K/uL (130-400); RDW Coefficient of Variation 15.8 % (11.5-14.5); RDW Standard Deviation 49.5 fL (36.4-46.3); Red Blood Count 3.05 M/uL (4.7-6.1); White Blood Count 20.92 K/uL (4.8-10.8)
[2019-02-21 05:16] LABS: HCO3 ABG 30 mmol/L (19-24); Oxygen Saturation ABG 95.1 % (90-95); PCO2 ABG 65 mmHg (35-46); PO2 ABG 90 mm/Hg (80-95); pH ABG 7.28 (7.35-7.45)
[2019-02-21 05:18] LABS: Allen Test Pos (Pos)
[2019-02-21 05:26] LABS: BUN Creatinine Ratio 14.1 (10-20); Calcium 7.5 mg/dl (8.5-10.1); Creatinine Clr Calc Pharmacy 129.1 ml/min; Est GFR (Non-African American) 108.7; Magnesium 2.2 mg/dl (1.8-2.4); Potassium 4.9 mmol/L (3.5-5.1)
[2019-02-21 05:29] LABS: Basophilic Stippling 1+
[2019-02-21 05:42] LABS: Phosphorus 2.4 mg/dl (2.5-4.9)
[2019-02-21] MEDS: D5W AND 1/2NSS 1,000 ML IV SCH (06:18)
--- NOTE | 2019-02-21 07:25 | XRay Report ---
XR chest 1V portable CLINICAL HISTORY: VDRF dyspnea. Pneumothorax. COMPARISON STUDY: 02/20/2019 Findings: Endotracheal tube 3 cm from the eris. Nasogastric tube remains within the stomach. Postoperative changes left hemithorax. Slight decrease in fluid overlying left apex. Parenchymal infi ltrative changes throughout the remaining lungs persist. There are small bilateral pleural effusions. IMPRESSION: Mild improvement in aeration left pulmonary apex. All remaining findings are stable. The above report was generated using voice recognition software. It may contain grammatical, syntax or spelling errors. Electronically signed by: Jimmie Kaur M.D. 02/21/2019 7:23 AM
--- NOTE | 2019-02-21 07:44 | Critical Care Progress Note ---
Date of Service February 21, 2019 Assessment & Plan (1) GERD (gastroesophageal reflux disease): (2) Lung malignancy: Reason Critically Ill: 69-year-old male status post left upper lobectomy w/ chest tube on 02/18 who became hypoxic and chest x-ray showed complete consolidation of left lung. transferred to ICU where he was intubated and bronched. Failed extubation yesterday morning and required reintubation. Plan to begin to try and wean to extubation tomorrow morning. Neuro - [facility] ICU: Positive, sedated with propofol EtOH abusereportedly drinks 18 beers per day -AWSS protocol -We will remain sedated with propofol and fentanyl overnight -Q4-hour beer -PRN Ativan -Multivitamin, folate, thiamine -We will consider phenobarbital when off sedation Cardiac - CADcontinue aspirin, Lipitor HTNcontinue Norvasc Respiratory - Small cell lung cancerstatus post left upper lobectomy with chest tube 02/18 -Left chest tube to drainage, left Pleurx cath COPD/mucoid impaction/hypercarbichypoxic respiratory failure/pneumonia: Chest x-ray revealed slight left lung consolidation, bronched 02/18 and 02/19 -Morning chest x-ray improved from prior studies -CTA chest yesterday negative for PE -Intubated with 8.0 ETT at 24 at the [facility], settings: 20/550/5/50% -BAL culture grew out Moraxella catarrhalis, covered with Levaquin -Monitor routine ABGs -BAL grew GNRMoraxella catarrhalis, continuing Levaquin -AA nebs -We will continue home Symbicort, Spiriva, Claritin regimen when appropriate GI GERDcontinue PPI RENAL/LYTES - Discontinuing IV fluids Routine BMPs, maximize electrolytes and replete as necessary - BPHFoley inserted, continue prazosin ENDO - No history diabetes, ICU hyperglycemic protocol HEME - Acute blood loss anemia requiring 1 unit RBCs 02/18 PM -H&H stable this a.m., will monitor with routine CBCs and transfuse if necessary ID - Levaquin, continue for 10-day course LINES/IV ACCESS - Peripheral IVs, Shafer, OG tube, ETT, chest tube, Pleurx cath DVT PROPHYLAXIS - SCDs, Lovenox (3) COPD (chronic obstructive pulmonary disease): (4) CAD (coronary artery disease): (5) BPH (benign prostatic hyperplasia): (6) Alcohol abuse: Supervising Physician Co-Signing Physician Notes I have personally evaluated and examined this patient. I agree with assessment and plan of Ryan VALENTE. Restart Lovenox for DVT prophylaxis. Continued VQ mismatch, reviewed CT scan findings. Continue antibiotics at this timefor total treatment course of 10 days for Moraxella. Tolerating diet. Trial of extubation likely tomorrow Patient was discussed in multidisciplinary rounds, I discussed the case with Dr. Myers. I have personally spent 40 minutes of critical care time in the direct management of this patient. This is a life/limb threatening event. This includes time spent evaluating patient, direct bedside care, chart review, placing orders, interpretation of diagnostic studies, discussion with consultants, patient, and/or family members regarding treatment decisions, as well as other required patient management activities. This time is exclusive of all separately billable procedures, and teaching time and separate from and in addition to any other critical care service time. Subjective 69-year-old male past medical history significant for smoking, alcohol abuse (reportedly 18 beers per day), COPD, CAD, GERD, small cell lung cancer status post left upper lobectomy as of 02/18/19. Currently has a left chest tube. Patient reportedly became hypoxic and chest x-ray revealed progressive left opacification consistent with consolidation versus pleural effusion. Patient was transported to ICU for intubation for bronchoscopy. Patient intubated with 8.0 at 22 cm at the lips. Bronchoscope confirmed placement, patient therapeutically bronched and sample obtained from left lower lobe. Was found to have copious secretions. Plan was to leave intubated in ICU overnight and repeat [facility] in the morning. He was extubated yesterday morning, failed weaning and required reintubation. This morning the patient remains intubated and sedated, with plan to leave intubated until tomorrow morning and will reattempt weaning to extubation. A.m. ABG showed improving respiratory acidosis and beginning to metabolically compensate. Chest x-ray improved from prior studies. Patient to remain in ICU for now for critical management and monitoring and management of ventilator. Review of Systems Unobtainable due to cognitive status, Unobtainable due to endotracheal tube and Unobtainable due to reduced consciousness Physical Exam Vital Signs (Past 24 Hours): Last Vital Signs Temp 37.1 C 02/20/19 18:00 Pulse 107 H 02/21/19 04:26 Resp 28 H 02/21/19 04:26 BP 113/57 L 02/21/19 04:00 Pulse Ox 100 02/21/19 04:26 Eyes: PERRL, conjunctivae normal, anicteric sclerae ENMT: 8.0 ETT, 24 at lips, 3 cm above eris on x-ray Neck: trachea midline, no thyromegaly Respiratory: Lungs coarse in all lobes bilaterally with auscultation, symmetrical chest wall movement, nonlabored breathing with ventilator support Cardiovascular: RRR, no murmur, no edema Heart Sounds: normal S1 and normal S2 Extremities: no edema Gastrointestinal (Abdomen): normal bowel sounds, soft, nontender, no hepatosplenomegaly Neurologic: Unable to assess due to sedation Genitourinary: Indwelling Shafer, adequate urine output Results & Data Laboratory Results Laboratory Results - last 24 hr 02/20/19 02/20/19 02/21/19 11:42 18:54 01:14 WBC RBC Hgb Hct MCV MCH MCHC RDW Std Deviation RDW Coeff of Nguyen Plt Count MPV Immature Gran % (Auto) Neut % (Auto) Lymph % (Auto) [place] % (Auto) Eos % (Auto) Baso % (Auto) Immature Gran # (Auto) Neut # (Auto) Lymph # (Auto) [place] # (Auto) Eos # (Auto) Baso # (Auto) Basophilic Stippling Sample Site R Radial POC pH 7.12 L* POC pCO2 85 H POC pO2 105 H POC HCO3 28 H POC Total CO2 30 POC Base Excess -2.0 ABG pH ABG pCO2 ABG pO2 ABG HCO3 POC ABG O2 Sat 95.0 ABG O2 Saturation ABG Base Excess Kaden Test Pass Barometric Pressure Oxygen Given O2 Delivery Device Ventilator POC O2 Rate 18 Minute Ventilation 7.5 POC FiO2 70 Tidal Volume 450 PEEP 5 Sodium Potassium Chloride Carbon Dioxide Anion Gap BUN Creatinine Est Cr Clr Drug Dosing Est GFR ( Amer) Est GFR (Non-Af Amer) BUN/Creatinine Ratio Glucose POC Glucose 116 H 131 H Calcium Phosphorus Magnesium 02/21/19 02/21/19 02/21/19 04:50 04:50 04:58 WBC 20.92 H RBC 3.05 L Hgb 8.3 L Hct 26.1 L MCV 85.6 MCH 27.2 MCHC 31.8 L RDW Std Deviation 49.5 H RDW Coeff of Nguyen 15.8 H Plt Count 453 H MPV 8.7 Immature Gran % (Auto) 0.7 Neut % (Auto) 87.0 Lymph % (Auto) 4.7 [place] % (Auto) 7.5 Eos % (Auto) 0.1 Baso % (Auto) 0.0 Immature Gran # (Auto) 0.14 H Neut # (Auto) 18.21 H Lymph # (Auto) 0.98 L [place] # (Auto) 1.56 H Eos # (Auto) 0.02 Baso # (Auto) 0.01 Basophilic Stippling 1+ Sample Site POC pH POC pCO2 POC pO2 POC HCO3 POC Total CO2 POC Base Excess ABG pH 7.28 L ABG pCO2 65 H ABG pO2 90 ABG HCO3 30 H POC ABG O2 Sat ABG O2 Saturation 95.1 H ABG Base Excess 2.5 H Kaden Test Pos Barometric Pressure 732.8 Oxygen Given 10 O2 Delivery Device POC O2 Rate Minute Ventilation POC FiO2 Tidal Volume PEEP Sodium 132 L Potassium 4.9 Chloride 100 Carbon Dioxide 31 Anion Gap 1.0 L BUN 7 Creatinine 0.53 L Est Cr Clr Drug Dosing 129.1 Est GFR ( Amer) 126.0 Est GFR (Non-Af Amer) 108.7 BUN/Creatinine Ratio 14.1 Glucose 136 H POC Glucose Calcium 7.5 L Phosphorus 2.4 L D Magnesium 2.2 Medications Administered Home Medications Spiriva with HandiHaler 1 cap INHALATION QA 12/17/18 [History Confirmed 02/18/19] Symbicort 2 puff INHALATION BID 12/17/18 [History Confirmed 02/18/19] amlodipine 10 mg PO HS 12/17/18 [History Confirmed 02/18/19] aspirin [Aspir-81] 81 mg PO QAM 12/17/18 [History Confirmed 02/18/19] atorvastatin 80 mg PO HS 12/17/18 [History Confirmed 02/18/19] calcium polycarbophil [Fiber (calcium polycarbophil)] 1 tab PO QAM 12/17/18 [History Confirmed 02/18/19] cyanocobalamin (vitamin B-12) 2,500 mcg PO QAM 12/17/18 [History Confirmed 02/18/19] fluticasone propionate [Flonase Allergy Relief] 2 spray INTRANASAL QAM 12/17/18 [History Confirmed 02/18/19] loratadine 10 mg PO QAM 12/17/18 [History Confirmed 02/18/19] lorazepam [Ativan] 0.5 mg PO BID PRN 12/17/18 [History Confirmed 02/18/19] multivitamin 1 tab PO QAM 12/17/18 [History Confirmed 02/18/19] omeprazole 40 mg PO QAM 12/17/18 [History Confirmed 02/18/19] paroxetine HCl 30 mg PO QAM 12/17/18 [History Confirmed 02/18/19] potassium 99 mg PO HS 12/17/18 [History Confirmed 02/18/19] prazosin 5 mg PO HS 12/17/18 [History Confirmed 02/18/19] tramadol [Ultram] 50 mg PO QID PRN #18 tab 12/26/18 [Rx Confirmed 02/18/19] Active Medications Albuterol (Duoneb) 3 ml NEB Q4R [facility] Stop: 03/21/19 11:59 Last Admin: 02/21/19 06:39 Dose: 3 ml Documented by: Amlodipine Besylate (Norvasc) 10 mg PO [facility] Stop: 03/20/19 20:59 Last Admin: 02/20/19 20:09 Dose: 10 mg Documented by: Aspirin (Aspirin Chew) 81 mg PO DAILY [facility] Stop: 03/23/19 08:59 Last Admin: 02/21/19 08:26 Dose: 81 mg Documented by: Atorvastatin Calcium (Lipitor) 80 mg PO [facility] Stop: 03/20/19 20:59 Last Admin: 02/20/19 20:09 Dose: 80 mg Documented by: Budesonide/Formoterol Fumarate (Symbicort 160mcg/4.5mcg) 2 puffs INH BID [facility] Stop: 03/20/19 20:59 Last Admin: 02/21/19 08:28 Dose: Not Given Documented by: Calcium Polycarbophil (Fibercon) 1 tab PO QAM [facility] Stop: 03/21/19 08:59 Last Admin: 02/21/19 08:26 Dose: 1 tab Documented by: Cyanocobalamin (Vitamin B-12) 2,500 mcg PO QAM [facility] Stop: 03/21/19 08:59 Last Admin: 03/29/19 08:28 Dose: 2,500 mcg Documented by: Docusate Sodium (Colace) 100 mg PO BID [facility] Stop: 03/22/19 10:59 Last Admin: 02/21/19 08:26 Dose: 100 mg Documented by: Enoxaparin Sodium (Lovenox) 40 mg SQ QAM [facility] Stop: 03/21/19 08:59 Last Admin: 02/19/19 09:56 Dose: 40 mg Documented by: Fentanyl Citrate (Fentanyl Citrate) 50 mcg IV Q1H PRN PRN Reason: Severe Pain (7,8,9,10) Stop: 03/05/19 16:22 Last Admin: 02/20/19 01:19 Dose: 50 mcg Documented by: Fluticasone Propionate (Flonase) 2 sprays NA QAM [facility] Stop: 03/20/19 18:20 Last Admin: 02/21/19 08:27 Dose: 2 sprays Documented by: Folic Acid (Folvite) 1 mg PO DAILY [facility] Stop: 03/22/19 08:59 Last Admin: 02/21/19 08:27 Dose: 1 mg Documented by: Lorazepam (Ativan) 1 mg in 2 mls @ 2 mls/min IV ONE PRN; Protocol PRN Reason: EtoH Withdrawal AWSS 6-10 Stop: 03/21/19 15:59 Last Admin: 02/20/19 22:51 Dose: 2 mls/min Documented by: Propofol (Diprivan) 1,000 mg in 100 mls @ 18.493 mls/hr IV .Q5H25M [facility]; Protocol Stop: 02/22/19 16:29 Last Titration: 02/21/19 07:08 Dose: 45 mcg/kg/min, 18.5 mls/hr Documented by: Levofloxacin/Dextrose (Levaquin/D5w) 750 mg in 150 mls @ 100 mls/hr IV Q24H [facility] Stop: 03/01/19 19:59 Last Infusion: 02/20/19 21:38 Dose: Infused Documented by: Pantoprazole Sodium 40 mg/ (Syringe) 10 mls @ 5 mls/min IV DAILY@1100 [facility] Stop: 03/22/19 10:59 Last Admin: 02/21/19 10:21 Dose: 5 mls/min Documented by: Ioversol (Optiray 320 100ml) 120 ml IV ONCE PRN PRN Reason: Interaction Checking Stop: 02/24/19 13:03 Last Admin: 02/20/19 13:05 Dose: 120 ml Documented by: Loratadine (Claritin) 10 mg PO QAM [facility] Stop: 03/21/19 08:59 Last Admin: 02/21/19 08:26 Dose: 10 mg Documented by: Multivitamins/Minerals (Cerovite Liquid) 15 ml PO DAILY [facility] Stop: 03/23/19 10:59 Last Admin: 02/21/19 10:21 Dose: 15 ml Documented by: Non-Formulary Medication (Beer) 1 can PO Q4 PRN PRN Reason: Alcohol Withdrawal Stop: 03/20/19 19:59 Nutritional Formula (Peptamen Intense Vhp) 1,000 ml GT CONT PRN; Protocol PRN Reason: TUBE FEED Stop: 03/22/19 12:14 Last Admin: 02/20/19 13:26 Dose: 1,000 ml Documented by: Ondansetron HCl (Zofran) 4 mg IV Q6H PRN PRN Reason: Nausea Stop: 03/20/19 18:20 Oxycodone/Acetaminophen (Percocet 5mg/325mg) 1 - 2 tab PO Q3H PRN PRN Reason: Pain Stop: 03/04/19 16:43 Paroxetine HCl (Paxil) 30 mg PO QAM [facility] Stop: 03/21/19 08:59 Last Admin: 02/21/19 08:27 Dose: 30 mg Documented by: Prazosin HCl (Prazosin Hcl) 5 mg PO HS [facility] Stop: 03/20/19 20:59 Last Admin: 02/20/19 20:09 Dose: 5 mg Documented by: Thiamine HCl (Vitamin B-1) 100 mg PO DAILY [facility] Stop: 03/22/19 08:59 Last Admin: 02/21/19 08:28 Dose: 100 mg Documented by: Tiotropium Armstrong (Spiriva) 1 puffs INH QAM [facility] Stop: 03/21/19 08:59 Last Admin: 02/21/19 08:28 Dose: Not Given Documented by: Tramadol HCl (Ultram) 50 mg PO QID PRN PRN Reason: pain Stop: 03/20/19 18:20 Last Admin: 02/19/19 04:04 Dose: 50 mg Documented by:
[2019-02-21] MEDS: DOCUSATE SODIUM SYRUP 100 MG/10 ML UDC PO SCH ×2 (08:26→19:39)
[2019-02-21] MEDS: ASPIRIN 81 MG CHEW PO SCH (08:26)
[2019-02-21] MEDS: LORATADINE 10 MG TAB PO SCH (08:26)
[2019-02-21] MEDS: CALCIUM POLYCARBOPHIL 625MG TAB PO SCH (08:26)
[2019-02-21] MEDS: FOLIC ACID 1 MG TAB PO SCH (08:27)
[2019-02-21] MEDS: PARoxetine HCl 20 MG TAB PO SCH (08:27)
[2019-02-21] MEDS: FLUTICASONE PROPIONATE NA SPR 16 GM BTL SCH (08:27)
[2019-02-21] MEDS: BUDESONIDE/FORMOTEROL FUMARATE 160/4.5 60 PUFFS/INHALER INH SCH ×2 (08:28→19:41)
[2019-02-21] MEDS: CYANOCOBALAMIN 500 MCG TABLET (VITAMIN B-12) PO SCH (08:28)
[2019-02-21] MEDS: TIOTROPIUM BROMIDE 5 PUFF/90 MCG INH INH SCH (08:28)
[2019-02-21] MEDS: THIAMINE HCL 100 MG TAB PO SCH (08:28)
[2019-02-21] MEDS ORDERED: SENNA 8.6 MG TAB PO ONE (09:00)
[2019-02-21] MEDS: PANTOprazole 40 MG in SYRINGE 0 ML IV SCH (10:21)
[2019-02-21] MEDS: MULTI VIT W/MINERALS LIQUID 15 ML UDP PO SCH (10:21)
[2019-02-21] MEDS: PEPTAMEN INTENSE VHP 1.0 CAL 1,000 ML BAG GT PRN (15:37)
--- NOTE | 2019-02-21 16:53 | Progress Note ---
DATE: 02/21/2019 SUBJECTIVE: Mr. Lomas was seen today. He remains quite ill. Having said that, he has had improvement of his left lung. He has much better aeration in the left lower aspect. He still has a space apically. I think his right actually looks a bit better also. He still has rhonchi. He is orally intubated, has oral gastric feeding tube in place and is tolerating his feeds. He had a fairly quiet night. He has made good urine. His white count is down to 20,920 with a hemoglobin which is stable at 8.3 and a platelet count which is stable at 453,000. His blood gas this morning reveals a pH 7.28 with pCO2 of 65, pO2 of 90 on 50% FIO2. His chemistries revealed sodium of 132, potassium 4.9, chloride 100, bicarbonate of 31, BUN and creatinine of 7 and 0.53. His blood sugars have been fairly well controlled. OBJECTIVE: His abdomen is soft. He has sequential compression devices in place. I am unable to evaluate him neurologically because he is sedated. ASSESSMENT AND PLAN: Postoperative day #3 status post completion left lobectomy for nonsmall cell lung carcinoma. His nodes were all negative. We did not see residual cancer in his lobe. Quite frankly I think that he remains quite ill, but better. I discussed this with the patient's and explained that he is still very tenuous and may not survive this, however, radiographically and clinically he certainly appears better. He is still on a ventilator, is not ready to come out; however, is down to 50% FIO2 with 100% saturations. He looks much improved overall, I think we will have to see how he looks tomorrow. I discussed this case with Dr. Virk and plans are tentatively made to try to wean him tomorrow.
--- NOTE | 2019-02-21 18:57 | Procedure Note ---
Procedure Note Date of Service February 21, 2019 Procedure date: Noted above Procedure: Radial artery cannulation Pre-procedure Diagnosis: Need for invasive monitoring, need for frequent blood draws Post-procedure Diagnosis: same as above Prior to Procedure: Informed Consent: The risks, benefits, indications, potential complications, and alternatives were explained to the the patient's and informed consent obtained. Attending Staff: Laz Virk DO Skin Prep: Chlorhexidine Anesthesia: 3 mL 1% lidocaine without epinephrine The identity of the patient was confirmed and a bedside time out was performed. Description of Procedure: After sterile prep and sterile drape utilizing standard sterile technique the superficial skin of the right radial artery was anesthetized. The target artery was identified via palpation and entered with a 20-gauge arrow Angiocath. Pulsatile bright red blood return was noted. Via modified Seldinger technique the self-contained guidewire was advanced and the Angiocath advanced over the guidewire. The guidewire was removed and brisk arterial blood return was noted. The pressure monitor was connected, and the arterial line was secured via commercial securement device. A sterile dressing was then applied. Complications: None Estimated blood loss: Trace Patient tolerated the procedure well.
[2019-02-21] MEDS: LEVOFLOXACIN/D5W 750 MG/150 ML BAG IV SCH (19:32)
[2019-02-21] MEDS: ATORVASTATIN 40 MG TAB PO SCH (19:39)
[2019-02-21] MEDS: PRAZOSIN HCL 1 MG CAP PO SCH (19:40)
[2019-02-21] MEDS: AMLODIPINE BESYLATE 5 MG TAB PO SCH (19:40)
[2019-02-22] MEDS: PROPOFOL 1,000 MG/100 ML VIAL IV SCH ×5 (00:25→23:16)
[2019-02-22] MEDS: ALBUT/IPRATROP 3MG/0.5MG NEB 3 ML VIAL NEB SCH ×6 (02:50→23:03)
[2019-02-22 05:47] LABS: Basophils # (auto) 0.01 K/uL (0-0.2); Basophils % (auto) 0.1 %; Eosinophils # (auto) 0.01 K/uL (0-0.5); Eosinophils % (auto) 0.1 %; Hematocrit (blood only) 23.8 % (42-52); Hemoglobin 7.6 g/dL (14.0-18.0); Immature Granulocytes # (auto) 0.11 K/uL (0.00-0.02); Immature Granulocytes % (auto) 0.6 %; Lymphocytes # (auto) 0.97 K/uL (1.2-3.4); Lymphocytes % (auto) 5.2 %; Mean Corpuscular Hgb Conc 31.9 g/dL (32-36); Mean Corpuscular Volume 85.6 fL (80-100); Mean Platelet Volume 8.7 fL (7.4-10.4); Monocytes # (auto) 1.35 K/uL (0.11-0.59); Monocytes % (auto) 7.3 %; Neutrophils # (auto) 16.06 K/uL (1.4-6.5); Neutrophils % (auto) 86.7 %; Platelet Count 468 K/uL (130-400); RDW Coefficient of Variation 15.9 % (11.5-14.5); Red Blood Count 2.78 M/uL (4.7-6.1); White Blood Count 18.51 K/uL (4.8-10.8)
[2019-02-22 05:59] LABS: iSTAT Arterial Blood Gas HCO3 32 meg/L (19-24); iSTAT Arterial Blood Gas pCO2 56 mmHg (35-46); iSTAT Arterial Blood Gas pH 7.36 (7.35-7.45); iSTAT Carbon Dioxide 34 mEq/l (24-31); iSTAT FiO2 40 %; iSTAT Site Art Line
[2019-02-22 06:06] LABS: BUN Creatinine Ratio 22.9 (10-20); Calcium 8.1 mg/dl (8.5-10.1); Creatinine Clr Calc Pharmacy 166.8 ml/min; Est GFR (Non-African American) 120.8; Magnesium 2.1 mg/dl (1.8-2.4); Potassium 4.2 mmol/L (3.5-5.1)
[2019-02-22 06:09] LABS: Hypochromasia Present; Polychromasia 1+
[2019-02-22] MEDS: ASPIRIN 81 MG CHEW PO SCH (06:57)
[2019-02-22] MEDS: LORATADINE 10 MG TAB PO SCH (06:57)
[2019-02-22] MEDS: DOCUSATE SODIUM SYRUP 100 MG/10 ML UDC PO SCH ×2 (06:57→19:59)
[2019-02-22] MEDS: MULTI VIT W/MINERALS LIQUID 15 ML UDP PO SCH (06:57)
[2019-02-22] MEDS: FOLIC ACID 1 MG TAB PO SCH (06:58)
[2019-02-22] MEDS: FLUTICASONE PROPIONATE NA SPR 16 GM BTL SCH (06:58)
[2019-02-22] MEDS: CALCIUM POLYCARBOPHIL 625MG TAB PO SCH (06:58)
[2019-02-22] MEDS: ENOXAPARIN INJ 40 MG/0.4 ML SYR SQ SCH (06:58)
[2019-02-22] MEDS: THIAMINE HCL 100 MG TAB PO SCH (06:59)
[2019-02-22] MEDS: CYANOCOBALAMIN 500 MCG TABLET (VITAMIN B-12) PO SCH (06:59)
[2019-02-22] MEDS: PARoxetine HCl 20 MG TAB PO SCH (06:59)
[2019-02-22] MEDS: BUDESONIDE/FORMOTEROL FUMARATE 160/4.5 60 PUFFS/INHALER INH SCH ×2 (07:00→20:07)
[2019-02-22] MEDS: TIOTROPIUM BROMIDE 5 PUFF/90 MCG INH INH SCH (07:01)
--- NOTE | 2019-02-22 07:25 | Critical Care Progress Note ---
Date of Service February 22, 2019 Assessment & Plan (1) GERD (gastroesophageal reflux disease): (2) Lung malignancy: Reason Critically Ill: 69-year-old male status post left upper lobectomy w/ chest tube on 02/18 who became hypoxic and chest x-ray showed complete consolidation of left lung. Neuro - ICU sedation -Propofol infusion EtOH abusereportedly drinks 18 beers per day -AWSS protocol -Q4-hour beer -PRN Ativan -Multivitamin, folate, thiamine -We will consider phenobarbital when off sedation Cardiac - CADcontinue aspirin, Lipitor HTNcontinue Norvasc Respiratory - Small cell lung cancerstatus post left upper lobectomy with chest tube 02/18 -Left chest tube to drainage, left Pleurx cath COPD/mucoid impaction/hypercarbichypoxic respiratory failure/pneumonia: -Patient extubated this morning -Dr. Myers nasotracheally suctioned at bedside -Aggressive chest physiotherapy GI GERDcontinue PPI Place core safe to facilitate feedings. RENAL/LYTES - Routine BMPs, maximize electrolytes and replete as necessary - BPHFoley inserted, continue prazosin ENDO - No history diabetes, ICU hyperglycemic protocol HEME - Acute blood loss anemia requiring 1 unit RBCs 02/18 PM -H&H stable this a.m., will monitor with routine CBCs and transfuse if necessary ID - Moraxella pneumonia -Levaquin, continue for 10-day course LINES/IV ACCESS - Peripheral IVs, Shafer, OG tube, ETT, chest tube, Pleurx cath DVT PROPHYLAXIS - SCDs, Lovenox I have personally spent 60 minutes of critical care time in the direct management of this patient. This is a life/limb threatening event. This includes time spent evaluating patient, direct bedside care, chart review, placing orders, interpretation of diagnostic studies, discussion with consultants, patient, and/or family members regarding treatment decisions, as well as other required patient management activities. This time is exclusive of all separately billable procedures, and teaching time and separate from and in addition to any other critical care service time. Clinical update: Patient desaturated with acute hypoxic respiratory failure most likely secondary to mechanical obstruction secondary to secretions mucoid impaction. Improved with noninvasive mechanical ventilation. Will start Precedex for sedation to facilitate noninvasive mechanical ventilation and will attempt bronchoscopy through noninvasive ventilator. Discussed this with Dr. Myers who is in agreement (3) COPD (chronic obstructive pulmonary disease): (4) CAD (coronary artery disease): (5) BPH (benign prostatic hyperplasia): (6) Alcohol abuse: Subjective No overnight events, patient arouses during spontaneous awakening trial, adequate parameters for extubation today will give trial of extubation. Physical Exam Vital Signs (Past 24 Hours): Last Vital Signs Temp 37.5 C 02/22/19 04:00 Pulse 104 H 02/22/19 06:48 Resp 23 02/22/19 06:48 BP 129/61 02/22/19 05:05 Pulse Ox 97 02/22/19 06:48 general: Alert. nontoxic. Skin: Warm, dry, Head: Atraumatic Ears, nose, mouth and throat: Obscured by endotracheal tube Cardiovascular: Normal peripheral perfusion Chest: Chest tube present without air leak minimal drainage Respiratory: no respiratory distress Gastrointestinal: Non distended Musculoskeletal: No deformity Results & Data Laboratory Results 02/22/19 02/22/19 02/22/19 Range/Units 11:21 06:09 05:46 WBC (4.8-10.8) K/uL RBC (4.7-6.1) M/uL Hgb (14.0-18.0) g/dL Hct (42-52) % MCV (80-100) fL MCH (25-34) pg MCHC (32-36) g/dL RDW Std Deviation (36.4-46.3) fL RDW Coeff of Nguyen (11.5-14.5) % Plt Count (130-400) K/uL MPV (7.4-10.4) fL Immature Gran % (Auto) % Neut % (Auto) % Lymph % (Auto) % [place] % (Auto) % Eos % (Auto) % Baso % (Auto) % Immature Gran # (Auto) (0.00-0.02) K/uL Neut # (Auto) (1.4-6.5) K/uL Lymph # (Auto) (1.2-3.4) K/uL [place] # (Auto) (0.11-0.59) K/uL Eos # (Auto) (0-0.5) K/uL Baso # (Auto) (0-0.2) K/uL Polychromasia Hypochromasia Sample Site Art Line POC pH 7.36 (7.35-7.45) POC pCO2 56 H (35-46) mmHg POC pO2 81 (80-95) mmHg POC HCO3 32 H (19-24) ange/L POC Total CO2 34 H (24-31) mEq/l POC Base Excess 7.0 H (-9-1.8) ange/L POC ABG O2 Sat 95.0 (90-95) % Kaden Test NA O2 Delivery Device Ventilator POC FiO2 40 % PEEP 5 Sodium (136-145) mmol/L Potassium (3.5-5.1) mmol/L Chloride (98-107) mmol/L Carbon Dioxide (21-32) mmol/L Anion Gap (3-11) BUN (7-18) mg/dl Creatinine (0.6-1.4) mg/dl Est Cr Clr Drug Dosing ml/min Est GFR ( Amer) Est GFR (Non-Af Amer) BUN/Creatinine Ratio (10-20) Glucose (70-99) mg/dl POC Glucose 133 H 140 H (70-99) Calcium (8.5-10.1) mg/dl Phosphorus (2.5-4.9) mg/dl Magnesium (1.8-2.4) mg/dl 02/22/19 02/22/19 02/22/19 Range/Units 05:07 05:07 00:30 WBC 18.51 H (4.8-10.8) K/uL RBC 2.78 L (4.7-6.1) M/uL Hgb 7.6 L (14.0-18.0) g/dL Hct 23.8 L (42-52) % MCV 85.6 (80-100) fL MCH 27.3 (25-34) pg MCHC 31.9 L (32-36) g/dL RDW Std Deviation 51.0 H (36.4-46.3) fL RDW Coeff of Nguyen 15.9 H (11.5-14.5) % Plt Count 468 H (130-400) K/uL MPV 8.7 (7.4-10.4) fL Immature Gran % (Auto) 0.6 % Neut % (Auto) 86.7 % Lymph % (Auto) 5.2 % [place] % (Auto) 7.3 % Eos % (Auto) 0.1 % Baso % (Auto) 0.1 % Immature Gran # (Auto) 0.11 H (0.00-0.02) K/uL Neut # (Auto) 16.06 H (1.4-6.5) K/uL Lymph # (Auto) 0.97 L (1.2-3.4) K/uL [place] # (Auto) 1.35 H (0.11-0.59) K/uL Eos # (Auto) 0.01 (0-0.5) K/uL Baso # (Auto) 0.01 (0-0.2) K/uL Polychromasia 1+ Hypochromasia Present Sample Site POC pH (7.35-7.45) POC pCO2 (35-46) mmHg POC pO2 (80-95) mmHg POC HCO3 (19-24) ange/L POC Total CO2 (24-31) mEq/l POC Base Excess (-9-1.8) ange/L POC ABG O2 Sat (90-95) % Kaden Test O2 Delivery Device POC FiO2 % PEEP Sodium 134 L (136-145) mmol/L Potassium 4.2 (3.5-5.1) mmol/L Chloride 98 (98-107) mmol/L Carbon Dioxide 33 H (21-32) mmol/L Anion Gap 3.0 (3-11) BUN 9 (7-18) mg/dl Creatinine 0.41 L (0.6-1.4) mg/dl Est Cr Clr Drug Dosing 166.8 ml/min Est GFR ( Amer) 140.0 Est GFR (Non-Af Amer) 120.8 BUN/Creatinine Ratio 22.9 H (10-20) Glucose 123 H (70-99) mg/dl POC Glucose 129 H (70-99) Calcium 8.1 L (8.5-10.1) mg/dl Phosphorus 2.0 L (2.5-4.9) mg/dl Magnesium 2.1 (1.8-2.4) mg/dl 02/21/19 Range/Units 12:11 WBC (4.8-10.8) K/uL RBC (4.7-6.1) M/uL Hgb (14.0-18.0) g/dL Hct (42-52) % MCV (80-100) fL MCH (25-34) pg MCHC (32-36) g/dL RDW Std Deviation (36.4-46.3) fL RDW Coeff of Nguyen (11.5-14.5) % Plt Count (130-400) K/uL MPV (7.4-10.4) fL Immature Gran % (Auto) % Neut % (Auto) % Lymph % (Auto) % [place] % (Auto) % Eos % (Auto) % Baso % (Auto) % Immature Gran # (Auto) (0.00-0.02) K/uL Neut # (Auto) (1.4-6.5) K/uL Lymph # (Auto) (1.2-3.4) K/uL [place] # (Auto) (0.11-0.59) K/uL Eos # (Auto) (0-0.5) K/uL Baso # (Auto) (0-0.2) K/uL Polychromasia Hypochromasia Sample Site POC pH (7.35-7.45) POC pCO2 (35-46) mmHg POC pO2 (80-95) mmHg POC HCO3 (19-24) ange/L POC Total CO2 (24-31) mEq/l POC Base Excess (-9-1.8) ange/L POC ABG O2 Sat (90-95) % Kaden Test O2 Delivery Device POC FiO2 % PEEP Sodium (136-145) mmol/L Potassium (3.5-5.1) mmol/L Chloride (98-107) mmol/L Carbon Dioxide (21-32) mmol/L Anion Gap (3-11) BUN (7-18) mg/dl Creatinine (0.6-1.4) mg/dl Est Cr Clr Drug Dosing ml/min Est GFR ( Amer) Est GFR (Non-Af Amer) BUN/Creatinine Ratio (10-20) Glucose (70-99) mg/dl POC Glucose 146 H (70-99) Calcium (8.5-10.1) mg/dl Phosphorus (2.5-4.9) mg/dl Magnesium (1.8-2.4) mg/dl Diagnostic Findings I have reviewed his chest x-ray dated February 22, 2019
--- NOTE | 2019-02-22 10:23 | XRay Report ---
XR chest 1V portable CLINICAL HISTORY: lobectomy COMPARISON STUDY: Chest CT February 12, 2019. Chest radiograph February 21, 2019. FINDINGS: Tip of endotracheal tube is 2.4 cm as above the eris. Left apical chest tubes are in plac e. A moderate left apical hydropneumothorax is unchanged. Tip of nasogastric tube is within the body of the stomach. There are small bilateral pleural effusions with persistent interstitial thickening a nd bilateral airspace opacities. There is no right pneumothorax. Cardiomegaly is again noted. Postope rative findings within the left lung are noted. IMPRESSION: 1. Tip of endotracheal tube 2.4 cm above the eris. 2. Two left apical chest tubes in place with no significant change in a moderate left apical hydropne umothorax. 3. Persistent interstitial thickening and bilateral airspace opacities which may reflect pulmonary ed greg or pneumonia. Electronically signed by: James Khoury M.D. 02/22/2019 10:22 AM
[2019-02-22] MEDS: PANTOprazole 40 MG in SYRINGE 0 ML IV SCH (11:16)
--- NOTE | 2019-02-22 11:51 | Procedure Note ---
Procedure Note: Bronchoscopy Procedure Procedure date: February 22, 2019 Procedure: fiberoptic bronchoscopy Pre-procedure indication: Acute hypoxic respiratory failure, mucoid impaction of bronchi Post-procedure Diagnosis: same as above Prior to Procedure: Informed Consent: The risks, benefits, indications, potential complications, an d alternatives were explained to the patient and the patient's and informed consent obtained. Attending Staff: Laz Virk DO Resident/APC: Not applicable Skin Prep: Not applicable Anesthesia: Precedex infusion The identity of the patient was confirmed and a bedside time out was performed. Description of Procedure: Fiberoptic bronchoscopy was performed via endotracheal tube. Bronchioalveolar lavage left main and left lower lobes was performed. Findings included: Thick white secretions, this is improved compared to his initial bronchoscopy however still significant mucoid impaction, right lung remained largely unremarkable thin clear secretions Complications: None Specimens: Bronchial washings sent for culture and Gram stain, cytology, fungal elements, and AFB stain and culture. Estimated blood loss: Zero
--- NOTE | 2019-02-22 11:53 | Post Anesthesia Assessment ---
Date of Service February 22, 2019 Post Sedation Assessment Vital Signs Temp Pulse Pulse Resp BP BP BP 02/22/19 11:45 101 H 24 02/22/19 08:02 103 H 23 02/22/19 08:00 101 H 129/62 02/22/19 07:01 105 H 02/22/19 07:00 102 H 128/59 L 02/22/19 06:48 104 H 23 02/22/19 05:05 108 H 129/61 02/22/19 05:01 107 H 02/22/19 05:00 106 H 129/61 02/22/19 04:02 109 H 25 H 02/22/19 04:01 106 H 02/22/19 04:00 37.5 C 106 H 105 H 18 121/59 L 121/59 L 02/22/19 03:01 111 H 02/22/19 03:00 107 H 132/59 L 02/22/19 02:51 110 H 26 H 02/22/19 02:01 112 H 02/22/19 02:00 110 H 123/58 L 02/22/19 01:01 110 H 02/22/19 01:00 111 H 128/61 02/22/19 00:01 107 H 02/22/19 00:00 37.7 C H 110 H 109 H 25 H 122/61 122/61 02/21/19 23:55 105 H 26 H 02/21/19 23:37 108 H 25 H 02/21/19 23:01 108 H 02/21/19 23:00 108 H 117/57 L 02/21/19 22:01 107 H 02/21/19 22:00 105 H 114/55 L 02/21/19 21:01 110 H 02/21/19 21:00 111 H 121/59 L 02/21/19 20:01 106 H 02/21/19 20:00 37.8 C H 109 H 110 H 24 118/58 L 118/58 L 02/21/19 19:50 109 H 109 H 23 02/21/19 19:01 109 H 02/21/19 19:00 106 H 128/64 02/21/19 18:01 109 H 02/21/19 18:00 110 H 127/63 02/21/19 17:45 109 H 22 02/21/19 17:32 109 H 123/60 02/21/19 17:01 110 H 02/21/19 17:00 110 H 124/62 02/21/19 16:38 110 H 127/62 02/21/19 16:01 111 H 02/21/19 16:00 110 H 124/62 02/21/19 15:34 109 H 123/58 L 02/21/19 15:31 109 H 122/61 02/21/19 15:01 109 H 02/21/19 15:00 109 H 108 H 20 122/58 L 02/21/19 14:15 109 H 20 02/21/19 14:01 110 H 02/21/19 14:00 109 H 116/58 L 02/21/19 13:01 109 H 02/21/19 13:00 109 H 118/56 L 02/21/19 12:01 109 H 02/21/19 12:00 109 H 129/63 Pulse Ox Pulse Ox 02/22/19 11:45 96 02/22/19 08:02 97 02/22/19 08:00 96 02/22/19 07:01 97 02/22/19 07:00 96 02/22/19 06:48 97 02/22/19 05:05 95 02/22/19 05:01 97 02/22/19 05:00 96 02/22/19 04:02 98 02/22/19 04:01 97 02/22/19 04:00 99 02/22/19 03:01 98 02/22/19 03:00 98 02/22/19 02:51 98 02/22/19 02:01 100 02/22/19 02:00 99 02/22/19 01:01 99 02/22/19 01:00 99 02/22/19 00:01 95 02/22/19 00:00 98 99 02/21/19 23:55 98 02/21/19 23:37 98 02/21/19 23:01 98 02/21/19 23:00 98 02/21/19 22:01 98 02/21/19 22:00 98 02/21/19 21:01 97 02/21/19 21:00 97 02/21/19 20:01 98 02/21/19 20:00 98 02/21/19 19:50 97 02/21/19 19:01 98 02/21/19 19:00 98 02/21/19 18:01 97 02/21/19 18:00 97 02/21/19 17:45 96 02/21/19 17:32 96 02/21/19 17:01 100 02/21/19 17:00 100 02/21/19 16:38 99 02/21/19 16:01 100 02/21/19 16:00 100 02/21/19 15:34 100 02/21/19 15:31 100 02/21/19 15:01 99 02/21/19 15:00 99 02/21/19 14:15 99 02/21/19 14:01 99 02/21/19 14:00 100 02/21/19 13:01 100 02/21/19 13:00 100 02/21/19 12:01 99 02/21/19 12:00 100 Recovery Score Activity: Moves 4 extremities Respiration: Deep Breath/Cough Circulation: +/-20% PreAnes Value Consciousness: Fully Awake Oxygen Saturation: O2 needed for >90% Post Anesthesia Score: 9 Post Sedation Plan On clinical assessment, the patient appears to have tolerated the sedation without complications. Patient is recovering as anticipated. Patient will continue to be monitored by nursing and may be discharged when sedation discharge criteria are met per below protocol. Upon Completions of procedure and additional 15 minutes continue every 5 minute vital signs and the P.A.R. score; then discharge to a Phase I or Fast Track to Phase II per the following guidelines: * Discharge Patient to appropriate Phase II area if PAR is 8 or greater or return to pre- procedure baseline. The post - procedure orders will be as directed. * If PAR score is less than 8 or not return to pre-procedure baseline then patient will follow Phase I monitoring till PAR is reached for Phase II. The Phase I may be done in procedure room or may call to secure a Phase I area. * If naloxone or flumazenil are used for reversal, hold in Phase I for continued monitoring from when last reversal dose was given for a minimum of 60 minutes or longer pending the nurse and/or physician discretion of patient condition before discharge to Phase II. Please call the Sedation Physician to re-evaluate and complete post-note for discharge to Phase II area. Do NOT discharge from procedure sedation or Phase 1 until post- sedation evaluation note is complete by procedure /sedation MD Sedation Discharge Instructions to be given to the patient at discharge to home.
[2019-02-22] MEDS ORDERED: MIDAZOLAM HCL 5 MG/ML 1 ML VIAL IV STA (11:57)
[2019-02-22] MEDS ORDERED: fentaNYL citrate 100 MCG/2 ML VIAL IV STA (11:58)
[2019-02-22] MEDS ORDERED: DexMEDEtomidine BOLUS FROM BAG IV ONE (12:00)
[2019-02-22] MEDS ORDERED: DEXMEDETOMIDINE HCL 200 MCG in SODIUM CHLORIDE 0.9% 48 ML IV SCH (12:00)
--- NOTE | 2019-02-22 12:20 | Procedure Note ---
Procedure Note Date of Service February 22, 2019 Procedure Date: February 22, 2019 Procedure: Endotracheal intubation Pre-procedure Diagnosis: Acute hypoxic respiratory failure Post-procedure Diagnosis: same as above Prior to Procedure: Informed Consent: emergent Attending Staff: Laz Virk DO Indications: Patient is a 69-year-old male with acute hypoxic respiratory failure secondary to mucoid impaction of bronchi The identity of the patient was confirmed and a bedside time out was performed. Description of Procedure: Patient was evaluated and required intubation for impending respiratory failure. The patient was prepared in the usual fashion. A Barreto to laryngoscope was used. A 8 endotrachial tube was placed endotracheally to 23 cm at the teeth. A grade grade 1 view was obtained. The endotracheal tube was noted to pass through the vocal cords. Chest rise was bilateral. Bilateral breath sounds were heard without air sounds in the abdomen. Mist was noted in the endotracheal tube. End-tidal CO2 measurement was positive. Endotracheal tube position was confirmed by bronchoscopy Complications: None Findings: Not applicable Specimens: Not applicable Estimated blood loss: Zero
[2019-02-22] MEDS: fentaNYL citrate 100 MCG/2 ML VIAL IV PRN (12:39)
--- NOTE | 2019-02-22 12:49 | Progress Note ---
DATE: 02/22/2019 Mr. Lomas continues to struggle. He was extubated this morning. We watched him for an hour or so; however, he became more and more short of breath and simply could not clear his secretions. For this reason, Dr. Austin Virk reintubated him. He has had a white count of 18,502 and hemoglobin, which is down to 7.6. His blood gas is reviewed, pH of 7.36, pCO2 of 56, pO2 of 81, bicarbonate of 32 on 40%. Sodium is 134. BUN and creatinine are 9 and 0.41, respectively. His x-ray, I think, does have a bit more on the right than I would like, but I think his left has expanded fairly well, although he continues to have an apical hydropneumothorax, which is not surprising. There really is not much of an infiltrate on the right side. He does have rhonchi upon auscultation. He is moving all extremities and following commands. He is tolerating his orogastric feedings. ASSESSMENT AND PLAN: Continued respiratory insufficiency following a lobectomy for a nonsmall cell lung carcinoma. He is still producing a great amount of sputum. At this point, we are going to leave him on the ventilator overnight and reassess in the morning. Discuss antibiotic coverage with Dr. Virk.
--- NOTE | 2019-02-22 12:57 | XRay Report ---
XR chest 1V portable CLINICAL HISTORY: intubation, coresafe placement COMPARISON STUDY: Chest radiograph February 22, 2019 at 10:09 AM. FINDINGS: Anterior cervical spine fusion is noted. Two left apical chest tube remain in place. There are postoperative findings within the left hemithorax. A left apical hydropneumothorax is unchanged. Tip of feeding tube is within the gastric fundus. Cardiomegaly is noted. There is a small right pleur al effusion. Interstitial thickening and mild bilateral airspace opacities persist. Tip of endotrache al tube is 4.5 cm above the eris. IMPRESSION: 1. Tip of endotracheal tube 4.5 cm above the eris. 2. Tip of feeding tube within the gastric fundus. 3. Two left apical chest tubes in place. No change in a left hydropneumothorax. 4. Persistent interstitial thickening and bilateral airspace opacities. Electronically signed by: James Khoury M.D. 02/22/2019 12:56 PM
[2019-02-22] MEDS: PEPTAMEN INTENSE VHP 1.0 CAL 1,000 ML BAG GT PRN (15:51)
[2019-02-22] MEDS: LEVOFLOXACIN/D5W 750 MG/150 ML BAG IV SCH (19:57)
[2019-02-22] MEDS: ATORVASTATIN 40 MG TAB PO SCH (19:59)
[2019-02-22] MEDS: PRAZOSIN HCL 1 MG CAP PO SCH (20:01)
[2019-02-22] MEDS: AMLODIPINE BESYLATE 5 MG TAB PO SCH (20:01)
[2019-02-23] MEDS: ALBUT/IPRATROP 3MG/0.5MG NEB 3 ML VIAL NEB SCH ×6 (03:48→23:08)
[2019-02-23 04:29] LABS: Basophils # (auto) 0.01 K/uL (0-0.2); Eosinophils # (auto) 0.01 K/uL (0-0.5); Hematocrit (blood only) 24.8 % (42-52); Hemoglobin 7.9 g/dL (14.0-18.0); Immature Granulocytes # (auto) 0.08 K/uL (0.00-0.02); Immature Granulocytes % (auto) 0.4 %; Lymphocytes # (auto) 1.05 K/uL (1.2-3.4); Lymphocytes % (auto) 5.1 %; Mean Corpuscular Hgb Conc 31.9 g/dL (32-36); Mean Corpuscular Volume 85.8 fL (80-100); Mean Platelet Volume 8.4 fL (7.4-10.4); Monocytes # (auto) 1.32 K/uL (0.11-0.59); Monocytes % (auto) 6.4 %; Neutrophils # (auto) 18.01 K/uL (1.4-6.5); Neutrophils % (auto) 88.1 %; Nucleated RBC # (auto) 0.02 K/uL (0-0); Nucleated RBC % (auto) 0.1 %; Platelet Count 456 K/uL (130-400); RDW Coefficient of Variation 16.1 % (11.5-14.5); RDW Standard Deviation 50.8 fL (36.4-46.3); Red Blood Count 2.89 M/uL (4.7-6.1); White Blood Count 20.48 K/uL (4.8-10.8)
[2019-02-23 04:32] LABS: HCO3 ABG 37 mmol/L (19-24); Oxygen Saturation ABG 99.7 % (90-95); PCO2 ABG 62 mmHg (35-46); PO2 ABG 278 mm/Hg (80-95); pH ABG 7.39 (7.35-7.45)
[2019-02-23 04:33] LABS: Allen Test Pos (Pos)
[2019-02-23 04:44] LABS: BUN Creatinine Ratio 26.5 (10-20); Calcium 8.3 mg/dl (8.5-10.1); Creatinine Clr Calc Pharmacy 162.9 ml/min; Est GFR (African American) 138.6; Est GFR (Non-African American) 119.6; Potassium 4.7 mmol/L (3.5-5.1)
[2019-02-23 04:55] LABS: Hypochromasia Present
[2019-02-23] MEDS: PROPOFOL 1,000 MG/100 ML VIAL IV SCH ×3 (04:58→18:10)
--- NOTE | 2019-02-23 06:04 | Critical Care Progress Note ---
Date of Service February 23, 2019 Assessment & Plan (1) GERD (gastroesophageal reflux disease): (2) Lung malignancy: Reason Critically Ill: 69-year-old male status post left upper lobectomy w/ chest tube on 02/18 who became hypoxic and chest x-ray showed complete consolidation of left lung. Neuro - ICU sedation -Propofol infusion EtOH abusereportedly drinks 18 beers per day -AWSS protocol -Q4-hour beer -PRN Ativan -Multivitamin, folate, thiamine -We will consider phenobarbital when off sedation Cardiac - CADcontinue aspirin, Lipitor HTNcontinue Norvasc Respiratory - Non-small cell lung cancerstatus post left upper lobectomy with chest tube 02/18 -Left chest tube to drainage, left Pleurx cath COPD/mucoid impaction/hypercarbichypoxic respiratory failure/pneumonia: -Patient extubated twice GI GERDcontinue PPI Place core safe to facilitate feedings -Tube feedings running at goal RENAL/LYTES - Routine BMPs, maximize electrolytes and replete as necessary - BPHFoley inserted, continue prazosin ENDO - No history diabetes, ICU hyperglycemic protocol HEME - Acute blood loss anemia requiring 1 unit RBCs 02/18 PM -H&H stable this a.m., will monitor with routine CBCs and transfuse if necessary ID - Moraxella pneumonia -Levaquin, continue for day 5 of 10-day course LINES/IV ACCESS - Peripheral IVs, Shafer, OG tube, ETT, chest tube, Pleurx cath DVT PROPHYLAXIS - SCDs, Lovenox I have personally spent 40 minutes of critical care time in the direct management of this patient. This is a life/limb threatening event. This includes time spent evaluating patient, direct bedside care, chart review, placing orders, interpretation of diagnostic studies, discussion with consultants, patient, and/or family members regarding treatment decisions, as well as other required patient management activities. This time is exclusive of all separately billable procedures, and teaching time and separate from and in addition to any other critical care service time. (3) COPD (chronic obstructive pulmonary disease): (4) CAD (coronary artery disease): (5) BPH (benign prostatic hyperplasia): (6) Alcohol abuse: Subjective No overnight events, patient arouses during spontaneous awakening trial. Physical Exam Vital Signs (Past 24 Hours): Last Vital Signs Temp 37.6 C H 03/31/19 04:00 Pulse 109 H 02/23/19 05:10 Resp 24 02/23/19 05:10 BP 128/62 02/23/19 04:00 Pulse Ox 96 02/23/19 05:10 General: Alert. nontoxic. Skin: Warm, dry, Head: Atraumatic Ears, nose, mouth and throat: airway obscured with endotracheal tube Cardiovascular: Normal peripheral perfusion Respiratory: no respiratory distress Gastrointestinal: Non distended Musculoskeletal: No deformity Results & Data Laboratory Results 02/23/19 02/23/19 02/23/19 Range/Units 05:50 04:18 04:18 WBC 20.48 H (4.8-10.8) K/uL RBC 2.89 L (4.7-6.1) M/uL Hgb 7.9 L (14.0-18.0) g/dL Hct 24.8 L (42-52) % MCV 85.8 (80-100) fL MCH 27.3 (25-34) pg MCHC 31.9 L (32-36) g/dL RDW Std Deviation 50.8 H (36.4-46.3) fL RDW Coeff of Nguyen 16.1 H (11.5-14.5) % Plt Count 456 H (130-400) K/uL MPV 8.4 (7.4-10.4) fL Immature Gran % (Auto) 0.4 % Neut % (Auto) 88.1 % Lymph % (Auto) 5.1 % [place] % (Auto) 6.4 % Eos % (Auto) 0.0 % Baso % (Auto) 0.0 % Immature Gran # (Auto) 0.08 H (0.00-0.02) K/uL Neut # (Auto) 18.01 H (1.4-6.5) K/uL Lymph # (Auto) 1.05 L (1.2-3.4) K/uL [place] # (Auto) 1.32 H (0.11-0.59) K/uL Eos # (Auto) 0.01 (0-0.5) K/uL Baso # (Auto) 0.01 (0-0.2) K/uL Absolute Nucleated RBC 0.02 H (0-0) K/uL Nucleated RBC % (auto) 0.1 % Polychromasia Hypochromasia Present ABG pH (7.35-7.45) ABG pCO2 (35-46) mmHg ABG pO2 (80-95) mm/Hg ABG HCO3 (19-24) mmol/L ABG O2 Saturation (90-95) % ABG Base Excess (-9-1.8) mEq/L Kaden Test (Pos) Oxygen Given Sodium 135 L (136-145) mmol/L Potassium 4.7 (3.5-5.1) mmol/L Chloride 96 L (98-107) mmol/L Carbon Dioxide 38 H (21-32) mmol/L Anion Gap 1.0 L (3-11) BUN 11 (7-18) mg/dl Creatinine 0.42 L (0.6-1.4) mg/dl Est Cr Clr Drug Dosing 162.9 ml/min Est GFR ( Amer) 138.6 Est GFR (Non-Af Amer) 119.6 BUN/Creatinine Ratio 26.5 H (10-20) Glucose 122 H (70-99) mg/dl POC Glucose 128 H (70-99) Calcium 8.3 L (8.5-10.1) mg/dl Phosphorus (2.5-4.9) mg/dl Magnesium (1.8-2.4) mg/dl 02/23/19 02/22/19 02/22/19 Range/Units 04:18 16:03 11:21 WBC (4.8-10.8) K/uL RBC (4.7-6.1) M/uL Hgb (14.0-18.0) g/dL Hct (42-52) % MCV (80-100) fL MCH (25-34) pg MCHC (32-36) g/dL RDW Std Deviation (36.4-46.3) fL RDW Coeff of Nguyen (11.5-14.5) % Plt Count (130-400) K/uL MPV (7.4-10.4) fL Immature Gran % (Auto) % Neut % (Auto) % Lymph % (Auto) % [place] % (Auto) % Eos % (Auto) % Baso % (Auto) % Immature Gran # (Auto) (0.00-0.02) K/uL Neut # (Auto) (1.4-6.5) K/uL Lymph # (Auto) (1.2-3.4) K/uL [place] # (Auto) (0.11-0.59) K/uL Eos # (Auto) (0-0.5) K/uL Baso # (Auto) (0-0.2) K/uL Absolute Nucleated RBC (0-0) K/uL Nucleated RBC % (auto) % Polychromasia Hypochromasia ABG pH 7.39 (7.35-7.45) ABG pCO2 62 H (35-46) mmHg ABG pO2 278 H (80-95) mm/Hg ABG HCO3 37 H (19-24) mmol/L ABG O2 Saturation 99.7 H (90-95) % ABG Base Excess 10.6 H (-9-1.8) mEq/L Kaden Test Pos (Pos) Oxygen Given 40% FIO2 Sodium (136-145) mmol/L Potassium (3.5-5.1) mmol/L Chloride (98-107) mmol/L Carbon Dioxide (21-32) mmol/L Anion Gap (3-11) BUN (7-18) mg/dl Creatinine (0.6-1.4) mg/dl Est Cr Clr Drug Dosing ml/min Est GFR ( Amer) Est GFR (Non-Af Amer) BUN/Creatinine Ratio (10-20) Glucose (70-99) mg/dl POC Glucose 102 H 133 H (70-99) Calcium (8.5-10.1) mg/dl Phosphorus (2.5-4.9) mg/dl Magnesium (1.8-2.4) mg/dl 02/22/19 02/22/19 02/22/19 Range/Units 06:09 05:07 05:07 WBC (4.8-10.8) K/uL RBC (4.7-6.1) M/uL Hgb (14.0-18.0) g/dL Hct (42-52) % MCV (80-100) fL MCH (25-34) pg MCHC (32-36) g/dL RDW Std Deviation (36.4-46.3) fL RDW Coeff of Nguyen (11.5-14.5) % Plt Count (130-400) K/uL MPV (7.4-10.4) fL Immature Gran % (Auto) % Neut % (Auto) % Lymph % (Auto) % [place] % (Auto) % Eos % (Auto) % Baso % (Auto) % Immature Gran # (Auto) (0.00-0.02) K/uL Neut # (Auto) (1.4-6.5) K/uL Lymph # (Auto) (1.2-3.4) K/uL [place] # (Auto) (0.11-0.59) K/uL Eos # (Auto) (0-0.5) K/uL Baso # (Auto) (0-0.2) K/uL Absolute Nucleated RBC (0-0) K/uL Nucleated RBC % (auto) % Polychromasia 1+ Hypochromasia Present ABG pH (7.35-7.45) ABG pCO2 (35-46) mmHg ABG pO2 (80-95) mm/Hg ABG HCO3 (19-24) mmol/L ABG O2 Saturation (90-95) % ABG Base Excess (-9-1.8) mEq/L Kaden Test (Pos) Oxygen Given Sodium 134 L (136-145) mmol/L Potassium 4.2 (3.5-5.1) mmol/L Chloride 98 (98-107) mmol/L Carbon Dioxide 33 H (21-32) mmol/L Anion Gap 3.0 (3-11) BUN 9 (7-18) mg/dl Creatinine 0.41 L (0.6-1.4) mg/dl Est Cr Clr Drug Dosing 166.8 ml/min Est GFR ( Amer) 140.0 Est GFR (Non-Af Amer) 120.8 BUN/Creatinine Ratio 22.9 H (10-20) Glucose 123 H (70-99) mg/dl POC Glucose 140 H (70-99) Calcium 8.1 L (8.5-10.1) mg/dl Phosphorus 2.0 L (2.5-4.9) mg/dl Magnesium 2.1 (1.8-2.4) mg/dl
[2019-02-23] MEDS: ASPIRIN 81 MG CHEW PO SCH (08:18)
[2019-02-23] MEDS: DOCUSATE SODIUM SYRUP 100 MG/10 ML UDC PO SCH ×2 (08:19→19:39)
[2019-02-23] MEDS: LORATADINE 10 MG TAB PO SCH (08:19)
[2019-02-23] MEDS: CALCIUM POLYCARBOPHIL 625MG TAB PO SCH (08:19)
[2019-02-23] MEDS: MULTI VIT W/MINERALS LIQUID 15 ML UDP PO SCH (08:19)
[2019-02-23] MEDS: PARoxetine HCl 20 MG TAB PO SCH (08:20)
[2019-02-23] MEDS: FOLIC ACID 1 MG TAB PO SCH (08:20)
[2019-02-23] MEDS: ENOXAPARIN INJ 40 MG/0.4 ML SYR SQ SCH (08:20)
[2019-02-23] MEDS: FLUTICASONE PROPIONATE NA SPR 16 GM BTL SCH (08:20)
[2019-02-23] MEDS: BUDESONIDE/FORMOTEROL FUMARATE 160/4.5 60 PUFFS/INHALER INH SCH ×2 (08:21→19:43)
[2019-02-23] MEDS: CYANOCOBALAMIN 500 MCG TABLET (VITAMIN B-12) PO SCH (08:21)
[2019-02-23] MEDS: TIOTROPIUM BROMIDE 5 PUFF/90 MCG INH INH SCH (08:21)
[2019-02-23] MEDS: PANTOprazole 40 MG in SYRINGE 0 ML IV SCH (11:24)
--- NOTE | 2019-02-23 12:04 | Progress Note ---
DATE: 02/23/2019 The patient was seen today. He remains on the ventilator. He is only on 30% FIO2 this morning. He is maintaining saturations of 90% or so. Chest tube drained about 200 mL. He put very little through his PleurX. He has been running some fevers as high as 37.8. Currently 37.6. His white count is 20,480, hemoglobin is 7.9. His BUN and creatinine are stable at 11 and 0.42. He has got rhonchi with decreased breath sounds in both sides. He does not have an air leak. He is not ready to go off the ventilator. I discussed this case in detail with the patient's daughter and son and son-in-law. I have explained that he is quite tenuous. They understand. We will continue her aggressive management. I do not think an attempt will be made today to extubate. Really did not see much when we brought him yesterday. At this point, we are treating him for his Moraxella catarrhalis that was obtained from his bronch washings from 02/19/2019. He is not making nearly as much sputum as he made before. We will check an x-ray in the morning. Hopefully, we will be able to wean him. NEFTALY
[2019-02-23] MEDS: PEPTAMEN INTENSE VHP 1.0 CAL 1,000 ML BAG GT PRN (16:18)
[2019-02-23] MEDS: LEVOFLOXACIN/D5W 750 MG/150 ML BAG IV SCH (19:40)
[2019-02-23] MEDS: ATORVASTATIN 40 MG TAB PO SCH (19:41)
[2019-02-23] MEDS: AMLODIPINE BESYLATE 5 MG TAB PO SCH (19:42)
[2019-02-23] MEDS: PRAZOSIN HCL 1 MG CAP PO SCH (19:43)
[2019-02-24] MEDS: PROPOFOL 1,000 MG/100 ML VIAL IV SCH ×5 (00:17→23:35)
[2019-02-24] MEDS: ALBUT/IPRATROP 3MG/0.5MG NEB 3 ML VIAL NEB SCH ×5 (03:26→20:00)
[2019-02-24 04:45] LABS: Basophils # (auto) 0.01 K/uL (0-0.2); Basophils % (auto) 0.1 %; Eosinophils # (auto) 0.02 K/uL (0-0.5); Eosinophils % (auto) 0.1 %; Hematocrit (blood only) 24.5 % (42-52); Hemoglobin 7.9 g/dL (14.0-18.0); Immature Granulocytes # (auto) 0.09 K/uL (0.00-0.02); Immature Granulocytes % (auto) 0.6 %; Lymphocytes # (auto) 1.37 K/uL (1.2-3.4); Mean Corpuscular Hgb Conc 32.2 g/dL (32-36); Mean Corpuscular Volume 84.5 fL (80-100); Mean Platelet Volume 8.5 fL (7.4-10.4); Monocytes # (auto) 1.45 K/uL (0.11-0.59); Monocytes % (auto) 9.5 %; Neutrophils # (auto) 12.33 K/uL (1.4-6.5); Neutrophils % (auto) 80.7 %; Nucleated RBC # (auto) 0.03 K/uL (0-0); Nucleated RBC % (auto) 0.2 %; Platelet Count 494 K/uL (130-400); RDW Coefficient of Variation 16.6 % (11.5-14.5); RDW Standard Deviation 51.5 fL (36.4-46.3); White Blood Count 15.27 K/uL (4.8-10.8)
[2019-02-24 05:02] LABS: BUN Creatinine Ratio 37.6 (10-20); Calcium 8.1 mg/dl (8.5-10.1); Creatinine Clr Calc Pharmacy 159.1 ml/min; Est GFR (African American) 137.3; Est GFR (Non-African American) 118.5; Potassium 4.5 mmol/L (3.5-5.1)
[2019-02-24 05:15] LABS: RBC Morphology Unremarkable
--- NOTE | 2019-02-24 07:14 | XRay Report ---
XR chest 1V portable HISTORY: 69 years-old Male lobectomy follow-up study in a patient with prior left-sided lobectomy COMPARISON: Chest radiograph 02/22/2019 TECHNIQUE: Portable AP view of the chest FINDINGS: Endotracheal tube terminates 2.6 cm superior to the eris. Calcification of the thoracic aortic arch . Stable positioning of the left-sided chest tubes. Postoperative suture material noted about the lef t midlung. Persistent interstitial coarsening with bilateral opacities. Left-sided hydropneumothorax redemonstrated. Increased amount of pleural air about the left hemithorax, now with pleural separatio n at the lung apex measuring up to 8.1 cm, previously measuring 6.5 cm. Cardiac mediastinal and hilar silhouettes are unchanged. Fusion hardware of the cervical spine. Feeding tube appears unchanged. IMPRESSION: 1. Postoperative changes of the left lung with stable positioning of the two left-sided chest tubes. 2. Left-sided hydropneumothorax with increased size of the pneumothorax. 3. Persistent interstitial coarsening with bilateral opacities. The above report was generated using voice recognition software. It may contain grammatical, syntax o r spelling errors. Electronically signed by: Khoa Garcia M.D. 02/24/2019 7:13 AM
[2019-02-24] MEDS: POLYETHYLENE (MIRALAX) 17 GM PACK PO SCH ×2 (09:13→19:47)
[2019-02-24] MEDS: PARoxetine HCl 20 MG TAB PO SCH (09:13)
[2019-02-24] MEDS: ASPIRIN 81 MG CHEW PO SCH (09:14)
[2019-02-24] MEDS: DOCUSATE SODIUM SYRUP 100 MG/10 ML UDC PO SCH ×2 (09:14→19:44)
[2019-02-24] MEDS: FOLIC ACID 1 MG TAB PO SCH (09:14)
[2019-02-24] MEDS: CALCIUM POLYCARBOPHIL 625MG TAB PO SCH (09:14)
[2019-02-24] MEDS: CYANOCOBALAMIN 500 MCG TABLET (VITAMIN B-12) PO SCH (09:14)
[2019-02-24] MEDS: ENOXAPARIN INJ 40 MG/0.4 ML SYR SQ SCH (09:15)
[2019-02-24] MEDS: LORATADINE 10 MG TAB PO SCH (09:16)
[2019-02-24] MEDS: BUDESONIDE/FORMOTEROL FUMARATE 160/4.5 60 PUFFS/INHALER INH SCH ×2 (09:16→15:24)
[2019-02-24] MEDS: TIOTROPIUM BROMIDE 5 PUFF/90 MCG INH INH SCH (09:16)
[2019-02-24] MEDS: FLUTICASONE PROPIONATE NA SPR 16 GM BTL SCH (09:16)
[2019-02-24] MEDS: MULTI VIT W/MINERALS LIQUID 15 ML UDP PO SCH (09:16)
[2019-02-24] MEDS: PANTOprazole 40 MG in SYRINGE 0 ML IV SCH (11:48)
--- NOTE | 2019-02-24 12:35 | Critical Care Progress Note ---
Date of Service February 24, 2019 Assessment & Plan (1) Lung malignancy: Neuro- proprofol for sedation. watch for signs alcohol withdrawal CV- HD stable. aspirin, amlodipine, atorvastatin Pulmonary- acute hypoxic and hypercarbic respiratory failure. pt failed extubation attempts twice. 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 + air leak from L chest tube. pleurx on R with minimal drainage. COPD tiotropium, symbicort ID- possible pneumonia BAL with moraxella. on levofloxacin Renal- cr ok. GI- continue tube feeds. pantoprazole proph Heme- leukocytosis, anemia. enoxpairn proph. 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 This is a life/limb threatening event. This includes time spent evaluating patient, direct bedside care, chart review, placing orders, interpretation of diagnostic studies, discussion with consultants, patient, and/or family members regarding treatment decisions, as well as other required patient management activities. This time is exclusive of all separately billable procedures, and teaching time and separate from and in addition to any other critical care service time. Subjective remains intubated and sedated Physical Exam Vital Signs (Past 24 Hours): Last Vital Signs Temp 38.1 C H 02/24/19 04:00 Pulse 88 02/24/19 11:29 Resp 20 02/24/19 11:30 BP 125/63 02/24/19 09:00 Pulse Ox 93 02/24/19 11:29 Physical Exam: Constitutional: Comfortable NAD on vent HEENT: normocephalic atraumatic. MMM. CV: RRR nl s1,s2 no mumurs rubs or gallops Lungs: crackles bilaterally. no accessory muscle use. Abd: soft nontender nondistended. normal bowel sounds Ext: no edema. no cyanosis, no edema Skin: warm dry Neuro: sedated Psych: sedated Results & Data Laboratory Results Abnormal lab results 02/23/19 02/23/19 02/24/19 Range/Units 18:02 23:34 04:23 WBC 15.27 H (4.8-10.8) K/uL RBC 2.90 L (4.7-6.1) M/uL Hgb 7.9 L (14.0-18.0) g/dL Hct 24.5 L (42-52) % RDW Std Deviation 51.5 H (36.4-46.3) fL RDW Coeff of Nguyen 16.6 H (11.5-14.5) % Plt Count 494 H (130-400) K/uL Immature Gran # (Auto) 0.09 H (0.00-0.02) K/uL Neut # (Auto) 12.33 H (1.4-6.5) K/uL [place] # (Auto) 1.45 H (0.11-0.59) K/uL Absolute Nucleated RBC 0.03 H (0-0) K/uL Chloride (98-107) mmol/L Carbon Dioxide (21-32) mmol/L Creatinine (0.6-1.4) mg/dl BUN/Creatinine Ratio (10-20) Glucose (70-99) mg/dl POC Glucose 110 H 113 H (70-99) Calcium (8.5-10.1) mg/dl 02/24/19 02/24/19 Range/Units 04:23 06:29 WBC (4.8-10.8) K/uL RBC (4.7-6.1) M/uL Hgb (14.0-18.0) g/dL Hct (42-52) % RDW Std Deviation (36.4-46.3) fL RDW Coeff of Nguyen (11.5-14.5) % Plt Count (130-400) K/uL Immature Gran # (Auto) (0.00-0.02) K/uL Neut # (Auto) (1.4-6.5) K/uL [place] # (Auto) (0.11-0.59) K/uL Absolute Nucleated RBC (0-0) K/uL Chloride 97 L (98-107) mmol/L Carbon Dioxide 37 H (21-32) mmol/L Creatinine 0.43 L (0.6-1.4) mg/dl BUN/Creatinine Ratio 37.6 H (10-20) Glucose 118 H (70-99) mg/dl POC Glucose 117 H (70-99) Calcium 8.1 L (8.5-10.1) mg/dl
--- NOTE | 2019-02-24 15:20 | XRay Report ---
KUB HISTORY: coresafe placement COMPARISON: KUB 02/20/2019. FINDINGS: The bowel gas pattern is unremarkable. There are no dilated loops of small bowel to suggest an obstruction. Left-sided chest tubes and small bilateral pleural effusions persist. Tip of the fe eding tube terminates in the expected location of the fundus of the stomach. No pneumoperitoneum or p neumatosis. IMPRESSION: The tip of the feeding tube terminates in the expected location of the fundus of the stomach. Electronically signed by: Ediwn Gant M.D. 02/24/2019 3:19 PM
[2019-02-24] MEDS: fentaNYL citrate 100 MCG/2 ML VIAL IV PRN (17:30)
[2019-02-24] MEDS: LEVOFLOXACIN/D5W 750 MG/150 ML BAG IV SCH (19:46)
[2019-02-24] MEDS: ATORVASTATIN 40 MG TAB PO SCH (19:46)
[2019-02-24] MEDS: AMLODIPINE BESYLATE 5 MG TAB PO SCH (19:47)
[2019-02-24] MEDS: PRAZOSIN HCL 1 MG CAP PO SCH (19:48)
--- NOTE | 2019-02-24 21:27 | Progress Note ---
DATE: 02/24/2019 Yordan Lomas was seen today. His x-ray looks a bit better, but he does not look very good. His blood pressure and vital signs are okay and he is only on 30% FIO2, but he is quite weak. I am very pleased with how much better his right lung looks. His left lung has a space problem (please refer to my op note as the patient had a significant inflammatory process at some point in the past and it was difficult to dissect down and decorticate his left lower lobe). He does have a small air leak. His drainage has been rather low from his chest tubes. He has got a few crackles bilaterally. Otherwise, he appears to be resting fairly comfortably. His white count is 15,270, hemoglobin of 7.9, which had been relatively stable. His BUN and creatinine are stable. ASSESSMENT AND PLAN: Status post reoperative completion left upper lobectomy for non-small cell lung carcinoma. He is struggling. It is still not clear to me why he had his sudden collapse, but I am quite pleased that his right lung looks better. We are going to continue to support him. I have discussed this case with Dr. Pastrana from the critical care service.
[2019-02-24] MEDS: PEPTAMEN INTENSE VHP 1.0 CAL 1,000 ML BAG GT PRN (22:07)
[2019-02-25] MEDS: ALBUT/IPRATROP 3MG/0.5MG NEB 3 ML VIAL NEB SCH ×7 (00:01→23:36)
[2019-02-25] MEDS: fentaNYL citrate 100 MCG/2 ML VIAL IV PRN (00:40)
[2019-02-25] MEDS ORDERED: ACETAMINOPHEN 325 MG TAB PO PRN (01:14)
[2019-02-25] MEDS ORDERED: SODIUM BICARB 8.4% INJ 50 MEQ/50 ML SYR IV STA ×2 (01:22)
[2019-02-25] MEDS ORDERED: fentaNYL DRIP 1,250 MCG/250 ML BAG IV PRN (01:24)
[2019-02-25] MEDS ORDERED: ACETAMINOPHEN 1,000 MG/100 ML VIAL IV PRN (01:24)
[2019-02-25] MEDS ORDERED: fentaNYL citrate 100 MCG/2 ML VIAL IV PRN (01:24)
[2019-02-25] MEDS: PROPOFOL 1,000 MG/100 ML VIAL IV SCH ×3 (03:45→15:38)
[2019-02-25 05:07] LABS: Hematocrit (blood only) 24.5 % (42-52); Hemoglobin 7.9 g/dL (14.0-18.0); Mean Corpuscular Hgb Conc 32.2 g/dL (32-36); Mean Corpuscular Volume 84.5 fL (80-100); Mean Platelet Volume 8.4 fL (7.4-10.4); Platelet Count 426 K/uL (130-400); RDW Coefficient of Variation 16.9 % (11.5-14.5); RDW Standard Deviation 52.3 fL (36.4-46.3); White Blood Count 13.37 K/uL (4.8-10.8)
[2019-02-25 05:34] LABS: BUN Creatinine Ratio 43.6 (10-20); Calcium 7.8 mg/dl (8.5-10.1); Creatinine Clr Calc Pharmacy 159.1 ml/min; Est GFR (African American) 137.3; Est GFR (Non-African American) 118.5; Magnesium 2.4 mg/dl (1.8-2.4); Potassium 4.2 mmol/L (3.5-5.1)
[2019-02-25] MEDS: ENOXAPARIN INJ 40 MG/0.4 ML SYR SQ SCH (08:19)
[2019-02-25] MEDS: ASPIRIN 81 MG CHEW PO SCH (08:19)
[2019-02-25] MEDS: DOCUSATE SODIUM SYRUP 100 MG/10 ML UDC PO SCH ×2 (08:19→21:17)
[2019-02-25] MEDS: FOLIC ACID 1 MG TAB PO SCH (08:19)
[2019-02-25] MEDS: PARoxetine HCl 20 MG TAB PO SCH (08:19)
[2019-02-25] MEDS: CALCIUM POLYCARBOPHIL 625MG TAB PO SCH (08:19)
[2019-02-25] MEDS: POLYETHYLENE (MIRALAX) 17 GM PACK PO SCH ×2 (08:20→21:18)
[2019-02-25] MEDS: CYANOCOBALAMIN 500 MCG TABLET (VITAMIN B-12) PO SCH (08:20)
--- NOTE | 2019-02-25 08:20 | XRay Report ---
XR chest 1V portable CLINICAL HISTORY: 69 years-old Male presenting with VDRF. TECHNIQUE: Portable upright AP view of the chest was obtained. COMPARISON: 02/24/2019. FINDINGS: Numerous external leads and support devices project over the thorax degrading image quality. Endotrac heal tube terminates in the mid thoracic trachea 3 cm from the eris. Weighted feeding catheter term inates in the gastric fundus. Partially visualized anterior cervical fusion hardware. Large bore left pleural drain positioned at the left apex. A second large bore left pleural drain is positioned in t he left midlung. Postsurgical changes of the left lung. Atherosclerosis of aortic arch. Cardiac silhouette normal in size. Extensive heterogeneity of lung pa renchyma with relative hyperinflation of the right lung. Overall decrease in bibasilar lung densities . Persistent small to moderate left and small right pleural effusion. Persistent left pneumothorax. O sseous structures normal. IMPRESSION: 1. Persistent left hydropneumothorax with postsurgical changes of the left lung. Left pleural drains remain in place. 2. Decreased bibasilar predominant lung densities, likely decreasing pulmonary edema and improved ae ration of the lung bases. 3. Persistent right pleural effusion. 4. Weighted feeding catheter terminates in the gastric fundus; advancement recommended. 5. Appropriately positioned endotracheal tube. Electronically signed by: Enio Trejo M.D. 02/25/2019 8:19 AM
[2019-02-25] MEDS: TIOTROPIUM BROMIDE 5 PUFF/90 MCG INH INH SCH (08:21)
[2019-02-25] MEDS: MULTI VIT W/MINERALS LIQUID 15 ML UDP PO SCH (08:21)
[2019-02-25] MEDS: FLUTICASONE PROPIONATE NA SPR 16 GM BTL SCH (08:21)
[2019-02-25] MEDS: LORATADINE 10 MG TAB PO SCH (08:21)
[2019-02-25] MEDS: BUDESONIDE/FORMOTEROL FUMARATE 160/4.5 60 PUFFS/INHALER INH SCH ×2 (08:22→21:20)
[2019-02-25] MEDS ORDERED: BISACODYL 10 MG SUPP PR ONE ×2 (08:45→12:40)
[2019-02-25] MEDS ORDERED: WHISKEY 1 DOSE PO ONE (09:15)
[2019-02-25] MEDS: ACETAMINOPHEN SOLN 160 MG/5 ML BTL PO PRN (09:48)
--- NOTE | 2019-02-25 09:48 | Critical Care Progress Note ---
Date of Service February 25, 2019 Assessment & Plan (1) Lung malignancy: Neuro- proprofol for sedation. watch for signs alcohol withdrawal. sedation vacation CV- HD stable. aspirin, amlodipine, atorvastatin Pulmonary- acute hypoxic and hypercarbic respiratory failure. pt failed extubation attempts twice. 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 + air leak from L chest tube. pleurx on R with minimal drainage. COPD tiotropium, symbicort ID- possible pneumonia BAL with moraxella. on levofloxacin. new fevers recheck cultures. broaden to piperacillin-tazobactam Renal- cr ok. GI- continue tube feeds. pantoprazole proph Heme- leukocytosis, anemia. enoxaparin proph. 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 This is a life/limb threatening event. This includes time spent evaluating patient, direct bedside care, chart review, placing orders, interpretation of diagnostic studies, discussion with consultants, patient, and/or family members regarding treatment decisions, as well as other required patient management activities. This time is exclusive of all separately billable procedures, and teaching time and separate from and in addition to any other critical care service time. Subjective remains intubated and sedated fevers overnight Physical Exam Vital Signs (Past 24 Hours): Last Vital Signs Temp 37.3 C 02/25/19 04:00 Pulse 100 H 02/25/19 07:19 Resp 23 02/25/19 07:19 BP 115/56 L 02/25/19 06:00 Pulse Ox 96 02/25/19 07:19 Physical Exam: Constitutional: Comfortable NAD on vent HEENT: normocephalic atraumatic. MMM. CV: RRR nl s1,s2 no mumurs rubs or gallops Lungs: slight crackles bilaterally. no accessory muscle use. chest tube in place + air leak Abd: soft nontender nondistended. normal bowel sounds Ext: no edema. no cyanosis, no edema Skin: warm dry Neuro: sedated Psych: sedated
[2019-02-25] MEDS: PANTOprazole 40 MG in SYRINGE 0 ML IV SCH (12:43)
[2019-02-25] MEDS: CEFEPIME 2,000 MG in SYRINGE 7.5 ML IV SCH ×2 (13:40→21:24)
--- NOTE | 2019-02-25 17:08 | Progress Note ---
DATE: 02/25/2019 Mr. Lomas was seen today on 02/25/2019. This is postoperative day #7 from his completion left upper lobectomy for nonsmall cell lung carcinoma. The patient has struggled and remains on the ventilator. He is only on 30% FIO2. Airway pressures were up a bit. Peak airway pressures with a PEEP of about 29-30. He has made good urine. He does have a small air leak. He has better expansion of the left lung and the upper lobe, although he still has a space issue in the apex. His right lung looks fairly clear to me. He is tolerating his tube feedings. I discussed this case in detail with the patient's . I still remain quite concerned that he is not going to be able to get off the ventilator. He remains sedated and stable. I discussed this case with Dr. José Pastrana.
[2019-02-25] MEDS: LEVOFLOXACIN/D5W 750 MG/150 ML BAG IV SCH (21:16)
[2019-02-25] MEDS: ATORVASTATIN 40 MG TAB PO SCH (21:18)
[2019-02-25] MEDS: PRAZOSIN HCL 1 MG CAP PO SCH (21:19)
[2019-02-25] MEDS: AMLODIPINE BESYLATE 5 MG TAB PO SCH (21:19)
[2019-02-26] MEDS: ALBUT/IPRATROP 3MG/0.5MG NEB 3 ML VIAL NEB SCH ×6 (03:39→23:38)
[2019-02-26] MEDS: PROPOFOL 1,000 MG/100 ML VIAL IV SCH ×4 (03:44→21:39)
[2019-02-26 04:58] LABS: Hematocrit (blood only) 27.7 % (42-52); Hemoglobin 8.6 g/dL (14.0-18.0); Mean Corpuscular Volume 84.2 fL (80-100); Platelet Count 479 K/uL (130-400); RDW Coefficient of Variation 16.7 % (11.5-14.5); RDW Standard Deviation 51.4 fL (36.4-46.3); Red Blood Count 3.29 M/uL (4.7-6.1)
[2019-02-26 05:16] LABS: BUN Creatinine Ratio 47.5 (10-20); Creatinine Clr Calc Pharmacy 159.1 ml/min; Est GFR (African American) 137.3; Est GFR (Non-African American) 118.5; Magnesium 2.3 mg/dl (1.8-2.4); Potassium 3.8 mmol/L (3.5-5.1)
[2019-02-26 05:24] LABS: Phosphorus 3.3 mg/dl (2.5-4.9)
[2019-02-26] MEDS: CEFEPIME 2,000 MG in SYRINGE 7.5 ML IV SCH ×3 (06:31→21:43)
--- NOTE | 2019-02-26 07:15 | XRay Report ---
SINGLE VIEW CHEST CLINICAL HISTORY: Respiratory failure. FINDINGS: An AP, portable, upright chest radiograph is compared to study dated 02/25/2019 and correlate d with chest CT dated 02/20/2019. The examination is degraded by portable technique and patient rotati on. Endotracheal and enteric tubes are unchanged in position. 2 left-sided chest tubes are also unch anged. The heart is mildly enlarged and there is atherosclerotic calcification of the thoracic aorta. There is mild congestion of the central pulmonary vasculature. Advanced emphysema and chronic inters titial thickening are similar to previous. Suture material projects over the left upper lung, and the re is volume loss from left-sided pulmonary resection. There is a small right pleural effusion. Moder ate to large left hydropneumothorax persists. The trachea is midline. Bilateral airspace opacities ar e unchanged. The bony thorax is grossly intact. Fusion hardware is noted in the lower cervical spine . IMPRESSION: 1. Stable lines and tubes. 2. Left-sided chest tubes and left hydropneumothorax have not appreciably changed from yesterday. 3. Cardiomegaly and advanced emphysema. Mild pulmonary vascular congestion persists. 4. A pleural effusion is seen at the right lung base. Electronically signed by: Keo Mina M.D. 02/26/2019 7:14 AM
[2019-02-26] MEDS: FOLIC ACID 1 MG TAB PO SCH (07:57)
[2019-02-26] MEDS: FLUTICASONE PROPIONATE NA SPR 16 GM BTL SCH (07:57)
[2019-02-26] MEDS: CALCIUM POLYCARBOPHIL 625MG TAB PO SCH (07:58)
[2019-02-26] MEDS: ASPIRIN 81 MG CHEW PO SCH (07:58)
[2019-02-26] MEDS: DOCUSATE SODIUM SYRUP 100 MG/10 ML UDC PO SCH ×2 (07:58→21:40)
[2019-02-26] MEDS: LORATADINE 10 MG TAB PO SCH (07:59)
[2019-02-26] MEDS: MULTI VIT W/MINERALS LIQUID 15 ML UDP PO SCH (07:59)
[2019-02-26] MEDS: ENOXAPARIN INJ 40 MG/0.4 ML SYR SQ SCH (07:59)
[2019-02-26] MEDS: POLYETHYLENE (MIRALAX) 17 GM PACK PO SCH ×2 (08:00→21:41)
[2019-02-26] MEDS: PARoxetine HCl 20 MG TAB PO SCH (08:00)
[2019-02-26] MEDS: CYANOCOBALAMIN 500 MCG TABLET (VITAMIN B-12) PO SCH (08:01)
--- NOTE | 2019-02-26 08:06 | Critical Care Progress Note ---
Date of Service February 26, 2019 Assessment & Plan (1) Lung malignancy: Neuro- proprofol for sedation. watch for signs alcohol withdrawal. sedation vacation. more awake CV- HD stable. aspirin, amlodipine, atorvastatin Pulmonary- acute hypoxic and hypercarbic respiratory failure. pt failed extubation attempts twice. 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 + air leak from L chest tube. pleurx on R with minimal drainage. COPD tiotropium, symbicort. SBT today ID- possible pneumonia BAL with moraxella. new fevers broaden to cefepime / Renal- cr ok. GI- continue tube feeds. pantoprazole proph Heme- leukocytosis, anemia. enoxaparin proph. 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 This is a life/limb threatening event. This includes time spent evaluating patient, direct bedside care, chart review, placing orders, interpretation of diagnostic studies, discussion with consultants, patient, and/or family members regarding treatment decisions, as well as other required patient management activities. This time is exclusive of all separately billable procedures, and teaching time and separate from and in addition to any other critical care service time. Subjective remains intubated and sedated Physical Exam Vital Signs (Past 24 Hours): Last Vital Signs Temp 37.6 C H 02/26/19 00:00 Pulse 93 H 02/26/19 06:08 Resp 29 H 02/26/19 05:25 BP 121/59 L 02/26/19 06:08 Pulse Ox 96 02/26/19 06:08 Physical Exam: Constitutional: Comfortable NAD on vent HEENT: normocephalic atraumatic. MMM. CV: RRR nl s1,s2 no mumurs rubs or gallops Lungs: slight crackles bilaterally. no accessory muscle use. chest tube in place + air leak Abd: soft nontender nondistended. normal bowel sounds Ext: no edema. no cyanosis, no edema Skin: warm dry Neuro: sedated opens eyes to voice Psych: sedated
--- NOTE | 2019-02-26 10:09 | Progress Note ---
DATE: 02/26/2019 Mr. Lomas was seen today. He is a bit light and he is a bit tachypneic, but his saturations look good. His compliance of his lungs looked a little better to me. His chest tube put out 290 mL. He does have an air leak which is odd in that he did not have an air leak for 2-3 days. He does have a space problem in his left apex, but I think his lung overall looks better. His white count is 12,700 with a hemoglobin of 8.6, which is stable. BUN and creatinine are 20 and 0.43. Sodium was 139. His carbon dioxide is up to 39. He does have some rhonchi, but no wheezing today. I am pretty happy with his x-ray. ASSESSMENT AND PLAN: Postoperative day #6 status post completion of left upper lobectomy for [id number] lung carcinoma. He is tolerating his tube feeds. I discussed this case with Dr. Pastrana. We are going to attempt to get him off the ventilator and will stop the sedation to assess his response. [facility]
[2019-02-26] MEDS: BUDESONIDE/FORMOTEROL FUMARATE 160/4.5 60 PUFFS/INHALER INH SCH ×2 (11:05→21:15)
[2019-02-26] MEDS: TIOTROPIUM BROMIDE 5 PUFF/90 MCG INH INH SCH (11:05)
[2019-02-26] MEDS: PANTOprazole 40 MG in SYRINGE 0 ML IV SCH (11:55)
[2019-02-26] MEDS: PEPTAMEN INTENSE VHP 1.0 CAL 1,000 ML BAG GT PRN (21:39)
[2019-02-26] MEDS: AMLODIPINE BESYLATE 5 MG TAB PO SCH (21:41)
[2019-02-26] MEDS: ATORVASTATIN 40 MG TAB PO SCH (21:41)
[2019-02-26] MEDS: PRAZOSIN HCL 1 MG CAP PO SCH (21:42)
[2019-02-27] MEDS: PROPOFOL 1,000 MG/100 ML VIAL IV SCH ×3 (03:46→21:55)
[2019-02-27] MEDS: ALBUT/IPRATROP 3MG/0.5MG NEB 3 ML VIAL NEB SCH ×5 (04:17→19:55)
[2019-02-27 04:23] LABS: Hematocrit (blood only) 27.3 % (42-52); Hemoglobin 8.6 g/dL (14.0-18.0); Mean Corpuscular Hgb Conc 31.5 g/dL (32-36); Mean Platelet Volume 9.2 fL (7.4-10.4); Platelet Count 467 K/uL (130-400); RDW Coefficient of Variation 16.8 % (11.5-14.5); RDW Standard Deviation 51.7 fL (36.4-46.3); Red Blood Count 3.29 M/uL (4.7-6.1); White Blood Count 12.58 K/uL (4.8-10.8)
[2019-02-27 04:44] LABS: BUN Creatinine Ratio 55.4 (10-20); Calcium 8.1 mg/dl (8.5-10.1); Creatinine Clr Calc Pharmacy 149.3 ml/min; Est GFR (Non-African American) 117.4; Magnesium 2.3 mg/dl (1.8-2.4); Potassium 3.7 mmol/L (3.5-5.1)
[2019-02-27] MEDS: fentaNYL citrate 100 MCG/2 ML VIAL IV PRN ×2 (04:49→12:12)
[2019-02-27] MEDS: CEFEPIME 2,000 MG in SYRINGE 7.5 ML IV SCH ×3 (04:57→23:56)
[2019-02-27] MEDS: ACETAMINOPHEN SOLN 160 MG/5 ML BTL PO PRN (04:57)
--- NOTE | 2019-02-27 07:28 | XRay Report ---
XR chest 1V portable CLINICAL HISTORY: 69 years-old Male presenting with VDRF. TECHNIQUE: Portable upright AP view of the chest was obtained. COMPARISON: 02/26/2019 at 6:52 AM. FINDINGS: Endotracheal tube terminates in the mid thoracic trachea 4 cm from the eris. Feeding catheter proje cts over the gastric fundus. 2. Left pleural drains remain in place, one positioned at the apex and one in the periphery of the le ft mid upper lung. Atherosclerosis of the aortic arch. Cardiac silhouette top normal in size. Postsur gical changes of the left lung again noted with unchanged size of the left pneumothorax. Unchanged le ft pleural effusion at the left lung base. Small right pleural effusion or pleural thickening unchang ed. Mild hyperinflation of the right lung unchanged. Osseous structures normal. Numerous overlying ex ternal leads degrade image quality. IMPRESSION: 1. No significant change from the prior exam with unchanged size of the left hydropneumothorax with the 2 left pleural drains remain in place. 2. Appropriately positioned endotracheal tube. 3. Feeding catheter terminates in the gastric fundus; advancement beyond the pylorus could be consid ered if clinically desired. 4. Unchanged right pleural effusion or pleural thickening. Electronically signed by: Enio Trejo M.D. 02/27/2019 7:27 AM
[2019-02-27] MEDS: MULTI VIT W/MINERALS LIQUID 15 ML UDP PO SCH (08:09)
[2019-02-27] MEDS: ASPIRIN 81 MG CHEW PO SCH (08:09)
[2019-02-27] MEDS: FLUTICASONE PROPIONATE NA SPR 16 GM BTL SCH (08:10)
[2019-02-27] MEDS: CALCIUM POLYCARBOPHIL 625MG TAB PO SCH (08:10)
[2019-02-27] MEDS: FOLIC ACID 1 MG TAB PO SCH (08:10)
[2019-02-27] MEDS: DOCUSATE SODIUM SYRUP 100 MG/10 ML UDC PO SCH ×2 (08:10→20:32)
[2019-02-27] MEDS: LORATADINE 10 MG TAB PO SCH (08:10)
[2019-02-27] MEDS: PARoxetine HCl 20 MG TAB PO SCH (08:11)
[2019-02-27] MEDS: POLYETHYLENE (MIRALAX) 17 GM PACK PO SCH ×2 (08:11→20:32)
[2019-02-27] MEDS: ENOXAPARIN INJ 40 MG/0.4 ML SYR SQ SCH (08:12)
[2019-02-27] MEDS: CYANOCOBALAMIN 500 MCG TABLET (VITAMIN B-12) PO SCH (08:12)
[2019-02-27] MEDS: BUDESONIDE/FORMOTEROL FUMARATE 160/4.5 60 PUFFS/INHALER INH SCH ×2 (08:14→22:25)
[2019-02-27] MEDS: TIOTROPIUM BROMIDE 5 PUFF/90 MCG INH INH SCH (08:14)
--- NOTE | 2019-02-27 09:25 | Critical Care Progress Note ---
Date of Service February 27, 2019 Assessment & Plan (1) Lung malignancy: Neuro- proprofol for sedation. watch for signs alcohol withdrawal. sedation vacation. opens eyes to voice CV- HD stable. aspirin, amlodipine, atorvastatin Pulmonary- acute hypoxic and hypercarbic respiratory failure. pt failed extubation attempts twice. 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 + air leak from L chest tube. pleurx on R with minimal drainage. COPD tiotropium, symbicort. SBT again today. failed yesterday due to tachypnea ID- possible pneumonia BAL with moraxella. new fevers broaden to cefepime 02/25 Renal- cr ok. GI- continue tube feeds. pantoprazole proph Heme- leukocytosis, anemia. enoxaparin proph. 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 This is a life/limb threatening event. This includes time spent evaluating patient, direct bedside care, chart review, placing orders, interpretation of diagnostic studies, discussion with consultants, patient, and/or family members regarding treatment decisions, as well as other required patient management activities. This time is exclusive of all separately billable procedures, and teaching time and separate from and in addition to any other critical care service time. Subjective remains intubated and sedated failed SBT yesterday with tachypnea Physical Exam Vital Signs (Past 24 Hours): Last Vital Signs Temp 37 C 02/27/19 04:00 Pulse 66 02/27/19 07:45 Resp 22 02/27/19 07:45 BP 112/61 02/27/19 06:00 Pulse Ox 97 02/27/19 07:45 Physical Exam: Constitutional: Comfortable NAD on vent HEENT: normocephalic atraumatic. MMM. CV: RRR nl s1,s2 no mumurs rubs or gallops Lungs: slight crackles bilaterally. no accessory muscle use. chest tube in place + air leak Abd: soft nontender nondistended. normal bowel sounds Ext: no edema. no cyanosis, no edema Skin: warm dry Neuro: sedated opens eyes to voice Psych: sedated
--- NOTE | 2019-02-27 11:26 | Progress Note ---
DATE: 02/27/2019 Yordan Lomas was seen today on 02/27/2019. He remains on 35% FIO2. His airway pressures are about the same on 3 of PEEP. He does have an air leak. His chest tube has drained about 320 mL. His right sounds fairly clear. He has some rhonchi and airway noises on the left. His abdomen is soft, nontender. Feeding tube is in place. He is sedated on the ventilator. His white count is 12,580. Hemoglobin is stable at 8.6. BUN and creatinine are stable. His right lung, I think, looks good on exam. He still has a space problem in the apex; however, I do not see evidence of an infiltrate on the left. ASSESSMENT AND PLAN: Postoperative day #9. The patient is relatively stable, although we have not much made progress on the ventilator. We are going to try and see if he will do better at a weaning attempt today. MTDD
[2019-02-27] MEDS: PANTOprazole 40 MG in SYRINGE 0 ML IV SCH (12:14)
[2019-02-27] MEDS ORDERED: MIDAZOLAM HCL 5 MG/ML VIAL IV ONE (16:47)
[2019-02-27] MEDS ORDERED: fentaNYL citrate 100 MCG/2 ML VIAL IV ONE (16:47)
[2019-02-27] MEDS ORDERED: ETOMIDATE 2 MG/ML 20 ML VIAL IV ONE (16:47)
[2019-02-27] MEDS ORDERED: SUCCINYLCHOLINE CHLORIDE 20 MG/ML 10 ML VIAL IV ONE (16:47)
[2019-02-27 20:31] LABS: iSTAT Allen Test Pass; iSTAT Arterial Blood Gas HCO3 37 meg/L (19-24); iSTAT Arterial Blood Gas pCO2 90 mmHg (35-46); iSTAT Arterial Blood Gas pH 7.21 (7.35-7.45); iSTAT Carbon Dioxide 39 mEq/l (24-31); iSTAT FiO2 40 %; iSTAT Site R Brachial
--- NOTE | 2019-02-27 20:45 | Critical Care Progress Note ---
Date of Service February 27, 2019 Subjective I was approached by nursing staff shortly after change of shift. Patient was noted to have declining mental status as well as decreased respiratory effort. On evaluation, the patient does appear to be relatively somnolent. He has poor inspiratory effort despite maintaining his SaO2 saturations in the mid 90s. On exam, he has coarse breath sounds with decreased breath sounds at the bases. An ABG was obtained which demonstrated CO2 accumulation with a respiratory acidosis. Patient was placed on BiPAP, but despite this, he had poor inspiratory effort with tidal volumes in the 200s. I did reach out to my attending physician prior to further discussions with need for possible emergent endotracheal intubation. I spoke with the patient's , Leona Lomas ([phone]) in regards to decline in status. She had seen him throughout the day and felt as though he was weakening. She is comfortable with proceeding with endotracheal intubation at this time. I did make a call to anesthesia to arrange for anesthesia for endotracheal intubation procedure. Please see separate note. Patient's did call back at [phone] to check on status. She reports that she and family will begin tomorrow. She requests any further updates to be directed to her. I have personally spent 35 minutes of critical care time in the direct management of this patient. This is a life/limb threatening event. This includes time spent evaluating patient, direct bedside care, chart review, placing orders, interpretation of diagnostic studies, discussion with consultants, patient, and family members, as well as other required patient management activities. This time is exclusive of all separately billable procedures, and teaching time and separate from and in addition to any other critical care service time. Physical Exam 2 Vital Signs (Past 24 Hours): Last Vital Signs Temp 37.1 C 02/27/19 12:00 Pulse 106 H 02/27/19 19:56 Resp 26 H 02/27/19 19:56 BP 143/72 H 02/27/19 14:00 Pulse Ox 90 02/27/19 19:56
[2019-02-27] MEDS ORDERED: RAPID SEQUENCE INDUCTION BAG ONE (20:58)
--- NOTE | 2019-02-27 21:24 | Procedure Note ---
Procedure Note Date of Service February 27, 2019 APC: Berto Barton PA-C. Attending: Dr. Pastrana A time-out was completed verifying correct patient, procedure, site, positioning. Patient was evaluated and required intubation for respiratory failure. Sedative agent used: Fentanyl, Versed, Etomidate Paralysis agent used: None Emergent consent was implied given patients rapidly declining clinical status and need for airway protection. Consent previously signed and placed on chart per attending surgeon. The patient was prepared in the appropriate fashion. Sedation was achieved utilizing Fentanyl, Versed, and Etomidate per Dr. Rosa administration. The patient was easily ventilated using [id number] to achieve adequate oxyge nation. An 8.0 Sami endotracheal tube was placed under Direct Visualization using Glidescope to 24 cm at the lip. The stylette was removed and balloon was inflated with 10mL of air. Appropriate Colorimetric change was appreciated. Condensation noted in ET Tube. Bilateral breath sounds were heard without air sounds in the abdomen. Dr. Rosa was present for the entire procedure. Post Intubation Chest X-ray confirms placement without pneumothorax. Patient tolerated the procedure well and there were no immediate complications.
--- NOTE | 2019-02-27 21:35 | XRay Report ---
XR chest 1V portable HISTORY: 69 years-old Male post intubation acute respiratory failure COMPARISON: Chest radiograph of same day at 6:46 AM TECHNIQUE: Portable AP view of the chest FINDINGS: Endotracheal tube overlies the midline, 4.0 cm superior to the eris. Stable positioning of the 2 le ft-sided chest tubes. Postoperative changes of the left lung. Left hydropneumothorax appears unchange d. Diffuse left greater than right bilateral primarily interstitial opacities redemonstrated. Trace r ight pleural effusion. Stable positioning of the enteric tube. Bones appear grossly intact. IMPRESSION: 1. Stable positioning of the endotracheal tube and 2 left-sided chest tubes. 2. Unchanged size of the left hydropneumothorax. 3. Stable trace right pleural effusion with left greater than right bilateral opacities. The above report was generated using voice recognition software. It may contain grammatical, syntax o r spelling errors. Electronically signed by: Khoa Garcia M.D. 02/27/2019 9:34 PM
[2019-02-27] MEDS: AMLODIPINE BESYLATE 5 MG TAB PO SCH (22:50)
[2019-02-27] MEDS: ATORVASTATIN 40 MG TAB PO SCH (22:51)
[2019-02-27] MEDS: PRAZOSIN HCL 1 MG CAP PO SCH (22:52)
[2019-02-27 23:46] LABS: iSTAT Allen Test Pass; iSTAT Arterial Blood Gas HCO3 37 meg/L (19-24); iSTAT Arterial Blood Gas pCO2 63 mmHg (35-46); iSTAT Arterial Blood Gas pH 7.37 (7.35-7.45); iSTAT Carbon Dioxide 39 mEq/l (24-31); iSTAT FiO2 50 %; iSTAT Site R Radial
[2019-02-28 05:23] LABS: Basophils # (auto) 0.04 K/uL (0-0.2); Basophils % (auto) 0.2 %; Eosinophils # (auto) 0.27 K/uL (0-0.5); Eosinophils % (auto) 1.5 %; Hematocrit (blood only) 27.7 % (42-52); Hemoglobin 8.5 g/dL (14.0-18.0); Immature Granulocytes # (auto) 0.35 K/uL (0.00-0.02); Lymphocytes # (auto) 2.17 K/uL (1.2-3.4); Lymphocytes % (auto) 12.4 %; Mean Corpuscular Hgb Conc 30.7 g/dL (32-36); Mean Corpuscular Volume 83.4 fL (80-100); Mean Platelet Volume 9.2 fL (7.4-10.4); Monocytes # (auto) 1.73 K/uL (0.11-0.59); Monocytes % (auto) 9.9 %; Platelet Count 470 K/uL (130-400); RDW Coefficient of Variation 16.7 % (11.5-14.5); RDW Standard Deviation 51.4 fL (36.4-46.3); Red Blood Count 3.32 M/uL (4.7-6.1); White Blood Count 17.46 K/uL (4.8-10.8)
[2019-02-28 05:28] LABS: HCO3 ABG 33 mmol/L (19-24); Oxygen Saturation ABG 90.4 % (90-95); PCO2 ABG 42 mmHg (35-46); PO2 ABG 61 mm/Hg (80-95)
[2019-02-28 05:30] LABS: pH ABG 7.51 (7.35-7.45)
[2019-02-28] MEDS: PROPOFOL 1,000 MG/100 ML VIAL IV SCH ×3 (05:40→17:08)
[2019-02-28] MEDS: CEFEPIME 2,000 MG in SYRINGE 7.5 ML IV SCH ×3 (05:41→22:55)
[2019-02-28 05:44] LABS: BUN Creatinine Ratio 65.1 (10-20); Calcium 8.2 mg/dl (8.5-10.1); Est GFR (African American) 129.1; Est GFR (Non-African American) 111.4; Magnesium 2.5 mg/dl (1.8-2.4); Potassium 3.5 mmol/L (3.5-5.1)
[2019-02-28 05:45] LABS: Phosphorus 2.5 mg/dl (2.5-4.9)
[2019-02-28 05:50] LABS: Polychromasia 1+
--- NOTE | 2019-02-28 07:41 | XRay Report ---
XR chest 1V portable HISTORY: Postop. COMPARISON: Chest 02/27/2019. FINDINGS: Left-sided chest tubes remain unchanged in position and terminates in the left lung apex. T here are suture material within the left upper lobe. Left hydropneumothorax remains unchanged in size . Bilateral airspace opacities have slightly improved. Trace right pleural effusion persists. Nasogas tric tube terminates in the expected location of the stomach. Endotracheal tube terminates approximat sadie 3.3 cm from the eris. There is cervical spinal fusion hardware. IMPRESSION: 1. Satisfactory support line placement. 2. No change in the left hydropneumothorax. 3. Improved aeration within the lungs. Electronically signed by: Edwin Gant M.D. 02/28/2019 7:39 AM
[2019-02-28] MEDS: ALBUT/IPRATROP 3MG/0.5MG NEB 3 ML VIAL NEB SCH ×4 (08:49→19:49)
[2019-02-28] MEDS: LORATADINE 10 MG TAB PO SCH (09:00)
[2019-02-28] MEDS: TIOTROPIUM BROMIDE 5 PUFF/90 MCG INH INH SCH (09:00)
[2019-02-28] MEDS: ASPIRIN 81 MG CHEW PO SCH (09:01)
[2019-02-28] MEDS: PARoxetine HCl 20 MG TAB PO SCH (09:01)
[2019-02-28] MEDS: CYANOCOBALAMIN 500 MCG TABLET (VITAMIN B-12) PO SCH (09:01)
[2019-02-28] MEDS: MULTI VIT W/MINERALS LIQUID 15 ML UDP PO SCH (09:02)
[2019-02-28] MEDS: CALCIUM POLYCARBOPHIL 625MG TAB PO SCH (09:03)
[2019-02-28] MEDS: FOLIC ACID 1 MG TAB PO SCH (09:03)
[2019-02-28] MEDS: DOCUSATE SODIUM SYRUP 100 MG/10 ML UDC PO SCH ×2 (09:03→20:25)
[2019-02-28] MEDS: FLUTICASONE PROPIONATE NA SPR 16 GM BTL SCH (09:04)
[2019-02-28] MEDS: ENOXAPARIN INJ 40 MG/0.4 ML SYR SQ SCH (09:04)
[2019-02-28] MEDS: POLYETHYLENE (MIRALAX) 17 GM PACK PO SCH ×2 (09:05→22:53)
--- NOTE | 2019-02-28 09:13 | Critical Care Progress Note ---
Date of Service February 28, 2019 Assessment & Plan (1) Lung malignancy: Neuro- propofol for sedation. watch for signs alcohol withdrawal. sedation vacation. opens eyes to voice CV- HD stable. aspirin, amlodipine, atorvastatin Pulmonary- acute hypoxic and hypercarbic respiratory failure. pt failed extubation attempts twice. 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 + air leak from L chest tube. pleurx on R with minimal drainage. COPD tiotropium, symbicort. extubated yesterday did ok until evening then required reintubation. will need trach ID- possible pneumonia BAL with moraxella. new fevers broaden to cefepime 02/25 Renal- cr ok. GI- continue tube feeds. pantoprazole proph Heme- leukocytosis, anemia. enoxaparin proph. 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 This is a life/limb threatening event. This includes time spent evaluating patient, direct bedside care, chart review, placing orders, interpretation of diagnostic studies, discussion with consultants, patient, and/or family members regarding treatment decisions, as well as other required patient management activities. This time is exclusive of all separately billable procedures, and teaching time and separate from and in addition to any other critical care service time. Subjective extubated yesterday but then in evening because more lethargic and unresponsive and became hypercarbic failed a trial of bipap and required intubation Physical Exam Vital Signs (Past 24 Hours): Last Vital Signs Temp 37 C 02/28/19 04:30 Pulse 105 H 02/28/19 08:00 Resp 27 H 02/28/19 08:00 BP 115/57 L 02/28/19 06:30 Pulse Ox 95 02/28/19 08:00 Physical Exam: Constitutional: Comfortable NAD on vent HEENT: normocephalic atraumatic. MMM. CV: RRR nl s1,s2 no mumurs rubs or gallops Lungs: slight crackles bilaterally. no accessory muscle use. chest tube in place + air leak Abd: soft nontender nondistended. normal bowel sounds Ext: no edema. no cyanosis, no edema Skin: warm dry Neuro: sedated opens eyes to voice and follows some commands Psych: sedated
[2019-02-28] MEDS: PANTOprazole 40 MG in SYRINGE 0 ML IV SCH (10:28)
[2019-02-28] MEDS: BUDESONIDE/FORMOTEROL FUMARATE 160/4.5 60 PUFFS/INHALER INH SCH ×2 (10:29→20:02)
[2019-02-28] MEDS: fentaNYL citrate 100 MCG/2 ML VIAL IV PRN ×3 (12:12→21:27)
[2019-02-28] MEDS: AMLODIPINE BESYLATE 5 MG TAB PO SCH (20:06)
[2019-02-28] MEDS: ATORVASTATIN 40 MG TAB PO SCH (20:06)
[2019-02-28] MEDS: PRAZOSIN HCL 1 MG CAP PO SCH (20:07)
--- NOTE | 2019-02-28 22:23 | Progress Note ---
DATE: 02/28/2019 SUBJECTIVE: Mr. Lomas was extubated for 5 hours yesterday but tired and had to be reintubated. He is on the ventilator at 35% FIO2 with airway pressures about 30 with a PEEP of 3. Those are his peak airway pressures. I had a long talk with the patient's son and at the bedside. White count 17,460. Hemoglobin stable at 8.5. His BUN and creatinine are 32 and 0.5. His blood sugar has been well controlled. Blood gas this morning reveals a pH of 7.51, a pCO2 of 42, a pO2 of 61. I think his lungs look better on x-ray; however, he still has left hydropneumothorax and this is going to be difficult to manage. ASSESSMENT AND PLAN: Postoperative day #10 status post completion of left upper lobectomy for [id number] lung carcinoma. He denies pain. He is sedated. He still has a small air leak on the left. He really has drained very little from his chest tubes and we are getting very little out from his PleurX catheter. At this point, I think we should continue our supportive measures and aggressive management with tube feeds and vent support. The patient's has stated that he "does not want to live like this." But I stated that if he being off the vent 5 hours yesterday is a good sign, that we should give him a few more days before we make a decision to withdraw any support. The son is in agreement.
[2019-03-01] MEDS: ALBUT/IPRATROP 3MG/0.5MG NEB 3 ML VIAL NEB SCH ×7 (00:15→23:54)
[2019-03-01] MEDS: PEPTAMEN INTENSE VHP 1.0 CAL 1,000 ML BAG GT PRN ×2 (00:23→22:01)
[2019-03-01] MEDS: PROPOFOL 1,000 MG/100 ML VIAL IV PRN ×5 (01:02→23:49)
[2019-03-01 05:34] LABS: iSTAT Allen Test Pass; iSTAT Arterial Blood Gas HCO3 34 meg/L (19-24); iSTAT Arterial Blood Gas pCO2 48 mmHg (35-46); iSTAT Arterial Blood Gas pH 7.46 (7.35-7.45); iSTAT Carbon Dioxide 35 mEq/l (24-31); iSTAT FiO2 35 %; iSTAT Site R Radial
[2019-03-01 05:42] LABS: Basophils # (auto) 0.04 K/uL (0-0.2); Basophils % (auto) 0.2 %; Eosinophils # (auto) 0.31 K/uL (0-0.5); Eosinophils % (auto) 1.6 %; Hematocrit (blood only) 27.7 % (42-52); Hemoglobin 8.5 g/dL (14.0-18.0); Immature Granulocytes # (auto) 0.25 K/uL (0.00-0.02); Immature Granulocytes % (auto) 1.3 %; Lymphocytes # (auto) 3.01 K/uL (1.2-3.4); Lymphocytes % (auto) 15.5 %; Mean Corpuscular Hgb Conc 30.7 g/dL (32-36); Mean Corpuscular Volume 84.5 fL (80-100); Mean Platelet Volume 9.3 fL (7.4-10.4); Monocytes # (auto) 1.74 K/uL (0.11-0.59); Monocytes % (auto) 8.9 %; Neutrophils # (auto) 14.13 K/uL (1.4-6.5); Neutrophils % (auto) 72.5 %; Platelet Count 431 K/uL (130-400); Red Blood Count 3.28 M/uL (4.7-6.1); White Blood Count 19.48 K/uL (4.8-10.8)
[2019-03-01 06:04] LABS: BUN Creatinine Ratio 71.7 (10-20); Calcium 8.1 mg/dl (8.5-10.1); Creatinine Clr Calc Pharmacy 143.6 ml/min; Est GFR (African American) 138.6; Est GFR (Non-African American) 119.6; Magnesium 2.4 mg/dl (1.8-2.4); Potassium 3.5 mmol/L (3.5-5.1)
[2019-03-01 06:05] LABS: Phosphorus 2.7 mg/dl (2.5-4.9)
[2019-03-01 06:08] LABS: Basophilic Stippling 1+; Hypochromasia Present; Polychromasia 1+
[2019-03-01] MEDS: CEFEPIME 2,000 MG in SYRINGE 7.5 ML IV SCH ×3 (06:19→21:37)
[2019-03-01] MEDS: fentaNYL citrate 100 MCG/2 ML VIAL IV PRN ×3 (06:55→21:37)
--- NOTE | 2019-03-01 07:18 | XRay Report ---
XR chest 1V portable HISTORY: 69 years-old Male VDRF acute respiratory failure COMPARISON: Chest radiograph 02/28/2019 TECHNIQUE: Portable AP view of the chest FINDINGS: Endotracheal tube overlies the midline, 4.2 cm superior to the eris. It into distal tip projects of the abdominal left upper quadrant, unchanged. Stable positioning of the 2 left-sided chest tubes. Un changed left hydropneumothorax. Unchanged small right pleural effusion. Stable bilateral interstitial coarsening. Degenerative changes of the shoulders and spine. IMPRESSION: 1. Satisfactory positioning of life-support lines and tubes as above. 2. Unchanged left hydropneumothorax. The above report was generated using voice recognition software. It may contain grammatical, syntax o r spelling errors. Electronically signed by: Khoa Garcia M.D. 03/01/2019 7:16 AM
--- NOTE | 2019-03-01 08:39 | Critical Care Progress Note ---
Date of Service March 01, 2019 Assessment & Plan (1) Lung malignancy: Neuro- propofol for sedation. sedation vacation daily. opens eyes to voice CV- HD stable. aspirin, amlodipine, atorvastatin Pulmonary- acute hypoxic and hypercarbic respiratory failure. . 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 + air leak from L chest tube. pleurx on R with minimal drainage. COPD tiotropium, symbicort. pt failed extubation attempts three times . will need trach ID- possible pneumonia BAL with moraxella. broaden to cefepime 02/25 Renal- cr ok. GI- continue tube feeds. pantoprazole proph Heme- leukocytosis, anemia. enoxaparin proph. 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 This is a life/limb threatening event. This includes time spent evaluating patient, direct bedside care, chart review, placing orders, interpretation of diagnostic studies, discussion with consultants, patient, and/or family members regarding treatment decisions, as well as other required patient management activities. This time is exclusive of all separately billable procedures, and teaching time and separate from and in addition to any other critical care service time. Subjective remains sedated on vent Physical Exam Vital Signs (Past 24 Hours): Last Vital Signs Temp 36.9 C 03/01/19 04:01 Pulse 106 H 03/01/19 08:00 Resp 25 H 03/01/19 07:30 BP 118/59 L 03/01/19 06:00 Pulse Ox 95 03/01/19 07:30 Physical Exam: Constitutional: Comfortable NAD on vent HEENT: normocephalic atraumatic. MMM. CV: RRR nl s1,s2 no mumurs rubs or gallops Lungs: slight crackles bilaterally. no accessory muscle use. chest tube in place + air leak Abd: soft nontender nondistended. normal bowel sounds Ext: no edema. no cyanosis, no edema Skin: warm dry Neuro: sedated opens eyes to voice Psych: sedated
--- NOTE | 2019-03-01 09:15 | Progress Note ---
DATE: 03/01/2019 The patient is seen today. This is postop day 10 status post a reoperative completion left upper lobectomy for a nonsmall cell lung carcinoma. He has struggled. It was a difficult case, which was quite long. He has had respiratory failure since that time. We are going to put him back on a ventilator. He is currently on CPAP and actually does not look bad except he is a bit tachypneic. His labs today reveal white count of 19,480 with hemoglobin stable at 8.5. Sodium is up to 143. His BUN and creatinine are 30 and 0.42 respectively. His x-ray was reviewed today. I think his left base looks pretty good as does his small right pleural effusion, but overall I think his right lung looks okay. We are going to have a space problem at the apex of his right lung. He has an air leak which is unchanged. It is intermittent during his respirations on suction. He has rhonchi with few rales, but no wheezing this morning. At this point, I would continue his current therapy. We will see how he does over the weekend. I greatly appreciate Haroon Pastrana's help in this case.
[2019-03-01] MEDS: DOCUSATE SODIUM SYRUP 100 MG/10 ML UDC PO SCH ×2 (09:22→21:37)
[2019-03-01] MEDS: PARoxetine HCl 20 MG TAB PO SCH (09:22)
[2019-03-01] MEDS: ENOXAPARIN INJ 40 MG/0.4 ML SYR SQ SCH (09:23)
[2019-03-01] MEDS: POLYETHYLENE (MIRALAX) 17 GM PACK PO SCH ×2 (09:23→21:36)
[2019-03-01] MEDS: MULTI VIT W/MINERALS LIQUID 15 ML UDP PO SCH (09:24)
[2019-03-01] MEDS: LORATADINE 10 MG TAB PO SCH (09:25)
[2019-03-01] MEDS: CYANOCOBALAMIN 500 MCG TABLET (VITAMIN B-12) PO SCH (09:25)
[2019-03-01] MEDS: ASPIRIN 81 MG CHEW PO SCH (09:25)
[2019-03-01] MEDS: CALCIUM POLYCARBOPHIL 625MG TAB PO SCH (09:26)
[2019-03-01] MEDS: BUDESONIDE/FORMOTEROL FUMARATE 160/4.5 60 PUFFS/INHALER INH SCH ×2 (09:27→21:37)
[2019-03-01] MEDS: FOLIC ACID 1 MG TAB PO SCH (09:27)
[2019-03-01] MEDS: TIOTROPIUM BROMIDE 5 PUFF/90 MCG INH INH SCH (09:27)
[2019-03-01] MEDS: FLUTICASONE PROPIONATE NA SPR 16 GM BTL SCH (09:28)
[2019-03-01] MEDS: PANTOprazole 40 MG in SYRINGE 0 ML IV SCH (11:49)
[2019-03-01] MEDS: PRAZOSIN HCL 1 MG CAP PO SCH (21:36)
[2019-03-01] MEDS: ATORVASTATIN 40 MG TAB PO SCH (21:36)
[2019-03-01] MEDS: AMLODIPINE BESYLATE 5 MG TAB PO SCH (21:36)
[2019-03-02] MEDS: fentaNYL citrate 100 MCG/2 ML VIAL IV PRN ×5 (01:41→21:06)
[2019-03-02] MEDS: ALBUT/IPRATROP 3MG/0.5MG NEB 3 ML VIAL NEB SCH ×5 (03:11→23:43)
[2019-03-02] MEDS: PROPOFOL 1,000 MG/100 ML VIAL IV PRN ×4 (04:44→21:07)
[2019-03-02 05:04] LABS: Basophils # (auto) 0.05 K/uL (0-0.2); Basophils % (auto) 0.3 %; Eosinophils # (auto) 0.43 K/uL (0-0.5); Eosinophils % (auto) 2.8 %; Hemoglobin 8.4 g/dL (14.0-18.0); Immature Granulocytes % (auto) 1.3 %; Lymphocytes # (auto) 2.04 K/uL (1.2-3.4); Lymphocytes % (auto) 13.4 %; Mean Corpuscular Volume 84.3 fL (80-100); Mean Platelet Volume 9.6 fL (7.4-10.4); Monocytes # (auto) 1.21 K/uL (0.11-0.59); Monocytes % (auto) 7.9 %; Neutrophils # (auto) 11.33 K/uL (1.4-6.5); Neutrophils % (auto) 74.3 %; Platelet Count 471 K/uL (130-400); RDW Coefficient of Variation 17.2 % (11.5-14.5); RDW Standard Deviation 53.3 fL (36.4-46.3); Red Blood Count 3.32 M/uL (4.7-6.1); White Blood Count 15.26 K/uL (4.8-10.8)
[2019-03-02 05:22] LABS: BUN Creatinine Ratio 70.9 (10-20); Calcium 8.2 mg/dl (8.5-10.1); Creatinine Clr Calc Pharmacy 129.8 ml/min; Est GFR (African American) 131.2; Est GFR (Non-African American) 113.2; Magnesium 2.4 mg/dl (1.8-2.4); Potassium 3.5 mmol/L (3.5-5.1)
[2019-03-02] MEDS: CEFEPIME 2,000 MG in SYRINGE 7.5 ML IV SCH ×3 (05:33→21:06)
[2019-03-02 05:42] LABS: Hypochromasia Present
[2019-03-02 05:50] LABS: iSTAT Allen Test Pass; iSTAT Arterial Blood Gas HCO3 33 meg/L (19-24); iSTAT Arterial Blood Gas pCO2 49 mmHg (35-46); iSTAT Arterial Blood Gas pH 7.44 (7.35-7.45); iSTAT Carbon Dioxide 35 mEq/l (24-31); iSTAT FiO2 40 %; iSTAT Site R Radial
--- NOTE | 2019-03-02 09:14 | Critical Care Progress Note ---
Date of Service March 02, 2019 Assessment & Plan (1) Lung malignancy: Neuro- propofol for sedation. sedation vacation daily. opens eyes to voice CV- HD stable. aspirin, amlodipine, atorvastatin Pulmonary- acute hypoxic and hypercarbic respiratory failure. . 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 + air leak from L chest tube. pleurx on R with minimal drainage. COPD tiotropium, symbicort. pt failed extubation attempts three times . will need trach if family is agreeable ID- possible pneumonia BAL with moraxella. broadened to cefepime 02/25. will complete 7 days so finish after tommorows dose Renal- cr ok. GI- continue tube feeds. pantoprazole proph Heme- leukocytosis, anemia. enoxaparin proph. 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 This is a life/limb threatening event. This includes time spent evaluating patient, direct bedside care, chart review, placing orders, interpretation of diagnostic studies, discussion with consultants, patient, and/or family members regarding treatment decisions, as well as other required patient management activities. This time is exclusive of all separately billable procedures, and teaching time and separate from and in addition to any other critical care service time. Subjective remains sedated on vent Physical Exam Vital Signs (Past 24 Hours): Last Vital Signs Temp 36.9 C 03/02/19 08:00 Pulse 99 H 03/02/19 08:00 Resp 21 03/02/19 07:25 BP 113/55 L 03/02/19 08:00 Pulse Ox 95 03/02/19 08:00 Physical Exam: Constitutional: Comfortable NAD on vent HEENT: normocephalic atraumatic. MMM. CV: RRR nl s1,s2 no mumurs rubs or gallops Lungs: slight crackles bilaterally. no accessory muscle use. chest tube in place + air leak Abd: soft nontender nondistended. normal bowel sounds Ext: no edema. no cyanosis, no edema Skin: warm dry Neuro: sedated opens eyes to voice Psych: sedated Results & Data Laboratory Results Laboratory Results - last 24 hr 03/02/19 03/02/19 03/02/19 04:48 04:48 05:36 WBC 15.26 H RBC 3.32 L Hgb 8.4 L Hct 28.0 L MCV 84.3 MCH 25.3 MCHC 30.0 L RDW Std Deviation 53.3 H RDW Coeff of Nguyen 17.2 H Plt Count 471 H MPV 9.6 Immature Gran % (Auto) 1.3 Neut % (Auto) 74.3 Lymph % (Auto) 13.4 Cannon % (Auto) 7.9 Eos % (Auto) 2.8 Baso % (Auto) 0.3 Immature Gran # (Auto) 0.20 H Neut # (Auto) 11.33 H Lymph # (Auto) 2.04 Cannon # (Auto) 1.21 H Eos # (Auto) 0.43 Baso # (Auto) 0.05 Hypochromasia Present Sample Site R Radial POC pH 7.44 POC pCO2 49 H POC pO2 78 L POC HCO3 33 H POC Total CO2 35 H POC Base Excess 9.0 H POC ABG O2 Sat 95.0 Kaden Test Pass O2 Delivery Device Ventilator POC O2 Rate 28 Minute Ventilation 14.2 POC FiO2 40 Tidal Volume 550 PEEP 5 Sodium 144 Potassium 3.5 Chloride 106 Carbon Dioxide 33 H Anion Gap 5.0 BUN 34 H Creatinine 0.48 L Est Cr Clr Drug Dosing 129.8 Est GFR ( Amer) 131.2 Est GFR (Non-Af Amer) 113.2 BUN/Creatinine Ratio 70.9 H Glucose 110 H Calcium 8.2 L Phosphorus 3.0 Magnesium 2.4
[2019-03-02] MEDS: PARoxetine HCl 20 MG TAB PO SCH (09:24)
[2019-03-02] MEDS: LORATADINE 10 MG TAB PO SCH (09:24)
[2019-03-02] MEDS: CYANOCOBALAMIN 500 MCG TABLET (VITAMIN B-12) PO SCH (09:24)
[2019-03-02] MEDS: ASPIRIN 81 MG CHEW PO SCH (09:26)
[2019-03-02] MEDS: DOCUSATE SODIUM SYRUP 100 MG/10 ML UDC PO SCH ×2 (09:26→21:06)
[2019-03-02] MEDS: POLYETHYLENE (MIRALAX) 17 GM PACK PO SCH ×2 (09:26→21:06)
[2019-03-02] MEDS: CALCIUM POLYCARBOPHIL 625MG TAB PO SCH (09:26)
[2019-03-02] MEDS: MULTI VIT W/MINERALS LIQUID 15 ML UDP PO SCH (09:26)
[2019-03-02] MEDS: FOLIC ACID 1 MG TAB PO SCH (09:27)
[2019-03-02] MEDS: ENOXAPARIN INJ 40 MG/0.4 ML SYR SQ SCH (09:27)
[2019-03-02] MEDS: FLUTICASONE PROPIONATE NA SPR 16 GM BTL SCH (09:30)
[2019-03-02] MEDS: PANTOprazole 40 MG in SYRINGE 0 ML IV SCH (09:30)
[2019-03-02] MEDS: BUDESONIDE/FORMOTEROL FUMARATE 160/4.5 60 PUFFS/INHALER INH SCH ×2 (09:30→21:07)
[2019-03-02] MEDS: TIOTROPIUM BROMIDE 5 PUFF/90 MCG INH INH SCH (09:30)
--- NOTE | 2019-03-02 13:50 | Progress Note ---
DATE: 03/02/2019 Mr. Lomas was seen today. He is on the ventilator. He is awake, but he is still on a Diprivan drip. His vital signs have been stable. His O2 saturations on 40% FIO2 are 95%. His airway pressures are stable. We are not getting much out from his PleurX catheter, only drained 215 mL from his chest tube. He still has an air leak. Our biggest problem is he has incomplete expansion of his left lung superiorly. The patient is tolerating his tube feedings. He is making good urine. I think at this point I am pleased with his laboratory work today. His white count has come down a bit. His hemoglobin is stable. His white count is down to 15,260 with a hemoglobin of 8.4. BUN and creatinine are stable. At this point, he is tolerating his tube feedings and he has been stable on the ventilator. The family would like to make a decision about whether to withdraw support. However, I feel that this is still an acute process and that there is a chance we can get him through this. I stated especially in light of the fact that we have negative margins and negative lymph nodes from the resection of his cancer. There is an issue with a space in his left chest cavity and we may have to address this down the road, but at this point I would like to continue our support. I think another attempt to extubate him in the morning would be worthwhile.
[2019-03-02] MEDS: ATORVASTATIN 40 MG TAB PO SCH (21:05)
[2019-03-02] MEDS: PRAZOSIN HCL 1 MG CAP PO SCH (21:05)
[2019-03-02] MEDS: PEPTAMEN INTENSE VHP 1.0 CAL 1,000 ML BAG GT PRN (21:06)
[2019-03-02] MEDS: AMLODIPINE BESYLATE 5 MG TAB PO SCH (21:06)
[2019-03-03] MEDS: PROPOFOL 1,000 MG/100 ML VIAL IV PRN ×2 (03:00→06:37)
[2019-03-03] MEDS: fentaNYL citrate 100 MCG/2 ML VIAL IV PRN ×4 (03:00→14:16)
[2019-03-03] MEDS: ALBUT/IPRATROP 3MG/0.5MG NEB 3 ML VIAL NEB SCH ×5 (03:25→20:42)
[2019-03-03 04:57] LABS: Hematocrit (blood only) 31.2 % (42-52); Hemoglobin 9.4 g/dL (14.0-18.0); Mean Corpuscular Hgb Conc 30.1 g/dL (32-36); Mean Corpuscular Volume 85.7 fL (80-100); Mean Platelet Volume 9.7 fL (7.4-10.4); Platelet Count 716 K/uL (130-400); RDW Coefficient of Variation 17.5 % (11.5-14.5); RDW Standard Deviation 54.7 fL (36.4-46.3); Red Blood Count 3.64 M/uL (4.7-6.1); White Blood Count 21.38 K/uL (4.8-10.8)
[2019-03-03 05:09] LABS: Alanine Aminotransferase 95 U/L (12-78); Albumin Level 2.1 gm/dl (3.4-5.0); Aspartate Aminotransferase 167 U/L (15-37); BUN Creatinine Ratio 72.5 (10-20); Bilirubin Direct < 0.1 mg/dl (0-0.2); Blood Urea Nitrogen 35 mg/dl (7-18); Calcium 8.3 mg/dl (8.5-10.1); Carbon Dioxide 31 mmol/L (21-32); Chloride 107 mmol/L (98-107); Creatinine Clr Calc Pharmacy 127.7 ml/min; Est GFR (African American) 131.2; Est GFR (Non-African American) 113.2; Glucose 113 mg/dl (70-99); Magnesium 2.4 mg/dl (1.8-2.4); Potassium 3.9 mmol/L (3.5-5.1); Sodium 143 mmol/L (136-145)
[2019-03-03 05:17] LABS: Alkaline Phosphatase 100 U/L (45-117); Bilirubin,Total 0.2 mg/dl (0.2-1); Phosphorus 3.8 mg/dl (2.5-4.9); Total Protein 6.7 gm/dl (6.4-8.2)
[2019-03-03 05:23] LABS: Basophils % (auto) 0.5 %; Eosinophils # (auto) 0.63 K/uL (0-0.5); Eosinophils % (auto) 2.9 %; Immature Granulocytes # (auto) 0.36 K/uL (0.00-0.02); Immature Granulocytes % (auto) 1.7 %; Lymphocytes # (auto) 3.04 K/uL (1.2-3.4); Lymphocytes % (auto) 14.2 %; Monocytes # (auto) 1.41 K/uL (0.11-0.59); Monocytes % (auto) 6.6 %; Neutrophils # (auto) 15.84 K/uL (1.4-6.5); Neutrophils % (auto) 74.1 %; Polychromasia 1+
[2019-03-03] MEDS: CEFEPIME 2,000 MG in SYRINGE 7.5 ML IV SCH ×3 (05:31→20:50)
[2019-03-03 06:10] LABS: iSTAT Arterial Blood Gas HCO3 31 meg/L (19-24); iSTAT Arterial Blood Gas pCO2 53 mmHg (35-46); iSTAT Arterial Blood Gas pH 7.38 (7.35-7.45); iSTAT Carbon Dioxide 33 mEq/l (24-31); iSTAT FiO2 35 %; iSTAT Site R Brachial
--- NOTE | 2019-03-03 07:30 | XRay Report ---
XR chest 1V portable HISTORY: 69 years-old Male f/u acute respiratory failure follow-up. COMPARISON: Chest radiograph 03/01/2019 TECHNIQUE: Portable AP view of the chest FINDINGS: Endotracheal tube overlies the midline, 4.4 cm superior to the eris. Stable positioning of the ente vale catheter and left-sided chest tubes. Postoperative changes of the left lung. Left hydropneumothor ax redemonstrated with increased size of the left pneumothorax, now with pleural separation at the le ft lung apex of 9.3 cm, previously measuring approximately 8.0 cm. The amount of pleural fluid within the left hemithorax appears stable to slightly decreased. Trace right pleural effusion. Unchanged il l-defined bilateral interstitial opacities. Calcification the thoracic aortic arch. Cardiac silhouett e is normal in size. Degenerative changes of the shoulders and spine. IMPRESSION: 1. Stable positioning of life-support lines and tubes as above. 2. Postoperative changes of the left lung with left hydropneumothorax. The pneumothorax has mildly i ncreased in size from comparison. The above report was generated using voice recognition software. It may contain grammatical, syntax o r spelling errors. Electronically signed by: Khoa Garcia M.D. 03/03/2019 7:28 AM
[2019-03-03] MEDS: LORATADINE 10 MG TAB PO SCH (08:07)
[2019-03-03] MEDS: CYANOCOBALAMIN 500 MCG TABLET (VITAMIN B-12) PO SCH (08:07)
[2019-03-03] MEDS: DOCUSATE SODIUM SYRUP 100 MG/10 ML UDC PO SCH ×2 (08:08→20:32)
[2019-03-03] MEDS: PARoxetine HCl 20 MG TAB PO SCH (08:08)
[2019-03-03] MEDS: MULTI VIT W/MINERALS LIQUID 15 ML UDP PO SCH (08:08)
[2019-03-03] MEDS: ENOXAPARIN INJ 40 MG/0.4 ML SYR SQ SCH (08:08)
[2019-03-03] MEDS: POLYETHYLENE (MIRALAX) 17 GM PACK PO SCH ×2 (08:08→20:32)
[2019-03-03] MEDS: ASPIRIN 81 MG CHEW PO SCH (08:08)
[2019-03-03] MEDS: FOLIC ACID 1 MG TAB PO SCH (08:09)
[2019-03-03] MEDS: FLUTICASONE PROPIONATE NA SPR 16 GM BTL SCH (08:09)
[2019-03-03] MEDS: CALCIUM POLYCARBOPHIL 625MG TAB PO SCH (08:09)
[2019-03-03] MEDS: BUDESONIDE/FORMOTEROL FUMARATE 160/4.5 60 PUFFS/INHALER INH SCH (08:10)
[2019-03-03] MEDS: TIOTROPIUM BROMIDE 5 PUFF/90 MCG INH INH SCH (08:10)
--- NOTE | 2019-03-03 09:05 | Critical Care Progress Note ---
Date of Service March 03, 2019 Assessment & Plan (1) Admitted to intensive care unit: Physical Exam Vital Signs (Past 24 Hours): Last Vital Signs Temp 37.2 C 03/03/19 08:00 Pulse 117 H 03/03/19 08:00 Resp 22 03/03/19 07:40 BP 124/65 03/03/19 08:00 Pulse Ox 92 03/03/19 08:00 Results & Data Laboratory Results 03/03/19 04:43 03/03/19 04:43 Current Inpatient Medications Acetaminophen (Tylenol) 1,000 mg PO Q8H PRN PRN Reason: Pain or Fever Stop: 03/27/19 09:07 Last Admin: 02/27/19 04:57 Dose: 1,000 mg Documented by: Albuterol (Duoneb) 3 ml NEB Q4R [facility] Stop: 03/21/19 11:59 Last Admin: 03/03/19 07:37 Dose: 3 ml Documented by: Amlodipine Besylate (Norvasc) 10 mg PO HS [facility] Stop: 03/20/19 20:59 Last Admin: 03/02/19 21:06 Dose: 10 mg Documented by: Aspirin (Aspirin Chew) 81 mg PO DAILY [facility] Stop: 03/23/19 08:59 Last Admin: 03/03/19 08:08 Dose: 81 mg Documented by: Atorvastatin Calcium (Lipitor) 80 mg PO HS [facility] Stop: 03/20/19 20:59 Last Admin: 03/02/19 21:05 Dose: 80 mg Documented by: Budesonide/Formoterol Fumarate (Symbicort 160mcg/4.5mcg) 2 puffs INH BID [facility] Stop: 03/20/19 20:59 Last Admin: 03/03/19 08:10 Dose: Not Given Documented by: Calcium Polycarbophil (Fibercon) 1 tab PO QAM [facility] Stop: 03/21/19 08:59 Last Admin: 03/03/19 08:09 Dose: 1 tab Documented by: Cyanocobalamin (Vitamin B-12) 2,500 mcg PO QAM [facility] Stop: 03/21/19 08:59 Last Admin: 03/03/19 08:07 Dose: 2,500 mcg Documented by: Docusate Sodium (Colace) 100 mg PO BID [facility] Stop: 03/22/19 10:59 Last Admin: 03/03/19 08:08 Dose: 100 mg Documented by: Enoxaparin Sodium (Lovenox) 40 mg SQ [facility] Stop: 03/21/19 08:59 Last Admin: 03/03/19 08:08 Dose: 40 mg Documented by: Fentanyl Citrate (Fentanyl Citrate) 50 mcg IV Q1H PRN PRN Reason: Severe Pain (7,8,9,10) Stop: 03/05/19 16:22 Last Admin: 03/03/19 05:31 Dose: 50 mcg Documented by: Fluticasone Propionate (Flonase) 2 sprays NA [facility] Stop: 03/20/19 18:20 Last Admin: 03/03/19 08:09 Dose: Not Given Documented by: Folic Acid (Folvite) 1 mg PO DAILY [facility] Stop: 03/22/19 08:59 Last Admin: 03/03/19 08:09 Dose: 1 mg Documented by: Lorazepam (Ativan) 1 mg in 2 mls @ 2 mls/min IV ONE PRN; Protocol PRN Reason: EtoH Withdrawal AWSS 6-10 Stop: 03/21/19 15:59 Last Admin: 02/20/19 22:51 Dose: 2 mls/min Documented by: Pantoprazole Sodium 40 mg/ (Syringe) 10 mls @ 5 mls/min IV DAILY@1100 [facility] Stop: 03/22/19 10:59 Last Admin: 03/02/19 09:30 Dose: 5 mls/min Documented by: Cefepime HCl 2,000 mg/ Syringe 20 mls @ 5 mls/min IV Q8 [facility]; Protocol Stop: 03/04/19 12:44 Last Admin: 03/03/19 05:31 Dose: 5 mls/min Documented by: Propofol (Diprivan) 1,000 mg in 100 mls @ 1.809 mls/hr IV .Q24H PRN; Protocol PRN Reason: TITRATE Stop: 03/04/19 00:41 Last Titration: 03/03/19 06:54 Dose: 40 mcg/kg/min, 14.5 mls/hr Documented by: Loratadine (Claritin) 10 mg PO [facility] Stop: 03/21/19 08:59 Last Admin: 03/03/19 08:07 Dose: 10 mg Documented by: Multivitamins/Minerals (Cerovite Liquid) 15 ml PO DAILY [facility] Stop: 03/23/19 10:59 Last Admin: 03/03/19 08:08 Dose: 15 ml Documented by: Nutritional Formula (Peptamen Intense Vhp) 1,000 ml GT CONT PRN; Protocol PRN Reason: TUBE FEED Stop: 03/22/19 12:14 Last Admin: 03/02/19 21:06 Dose: 1,000 ml Documented by: Ondansetron HCl (Zofran) 4 mg IV Q6H PRN PRN Reason: Nausea Stop: 03/20/19 18:20 Oxycodone/Acetaminophen (Percocet 5mg/325mg) 1 - 2 tab PO Q3H PRN PRN Reason: Pain Stop: 03/04/19 16:43 Paroxetine HCl (Paxil) 30 mg PO QAM [facility] Stop: 03/21/19 08:59 Last Admin: 03/03/19 08:08 Dose: 30 mg Documented by: Polyethylene Glycol (Miralax Powder Packet) 17 gm PO BID [facility] Stop: 03/26/19 08:59 Last Admin: 03/03/19 08:08 Dose: 17 gm Documented by: Prazosin HCl (Prazosin Hcl) 5 mg PO HS [facility] Stop: 03/20/19 20:59 Last Admin: 03/02/19 21:05 Dose: 5 mg Documented by: Tiotropium [place] (Spiriva) 1 puffs INH QAM [facility] Stop: 03/21/19 08:59 Last Admin: 03/03/19 08:10 Dose: Not Given Documented by: Tramadol HCl (Ultram) 50 mg PO QID PRN PRN Reason: pain Stop: 03/20/19 18:20 Last Admin: 02/19/19 04:04 Dose: 50 mg Documented by: Medications Administered Current Inpatient Medications Acetaminophen (Tylenol) 1,000 mg PO Q8H PRN PRN Reason: Pain or Fever Stop: 03/27/19 09:07 Last Admin: 02/27/19 04:57 Dose: 1,000 mg Documented by: Albuterol (Duoneb) 3 ml NEB Q4R [facility] Stop: 03/21/19 11:59 Last Admin: 03/03/19 07:37 Dose: 3 ml Documented by: Amlodipine Besylate (Norvasc) 10 mg PO HS [facility] Stop: 04/25/19 20:59 Last Admin: 03/02/19 21:06 Dose: 10 mg Documented by: Aspirin (Aspirin Chew) 81 mg PO DAILY [facility] Stop: 03/23/19 08:59 Last Admin: 03/03/19 08:08 Dose: 81 mg Documented by: Atorvastatin Calcium (Lipitor) 80 mg PO HS [facility] Stop: 03/20/19 20:59 Last Admin: 03/02/19 21:05 Dose: 80 mg Documented by: Budesonide/Formoterol Fumarate (Symbicort 160mcg/4.5mcg) 2 puffs INH BID [facility] Stop: 03/20/19 20:59 Last Admin: 03/03/19 08:10 Dose: Not Given Documented by: Calcium Polycarbophil (Fibercon) 1 tab PO [facility] Stop: 03/21/19 08:59 Last Admin: 03/03/19 08:09 Dose: 1 tab Documented by: Cyanocobalamin (Vitamin B-12) [facility] [place] Stop: 03/21/19 08:59 Last Admin: 03/03/19 08:07 Dose: 2,500 mcg Documented by: Docusate Sodium (Colace) 100 mg PO BID [facility] Stop: 03/22/19 10:59 Last Admin: 03/03/19 08:08 Dose: 100 mg Documented by: Enoxaparin Sodium (Lovenox) 40 mg SQ QAM [facility] Stop: 03/21/19 08:59 Last Admin: 03/03/19 08:08 Dose: 40 mg Documented by: Fentanyl Citrate (Fentanyl Citrate) 50 mcg IV Q1H PRN PRN Reason: Severe Pain (7,8,9,10) Stop: 03/05/19 16:22 Last Admin: 03/03/19 05:31 Dose: 50 mcg Documented by: Fluticasone Propionate (Flonase) 2 sprays NA [facility]AM [facility] Stop: 03/20/19 18:20 Last Admin: 03/03/19 08:09 Dose: Not Given Documented by: Folic Acid (Folvite) 1 mg PO DAILY [facility] Stop: 03/22/19 08:59 Last Admin: 03/03/19 08:09 Dose: 1 mg Documented by: Lorazepam (Ativan) 1 mg in 2 mls @ 2 mls/min IV ONE PRN; Protocol PRN Reason: EtoH Withdrawal AWSS 6-10 Stop: 03/21/19 15:59 Last Admin: 02/20/19 22:51 Dose: 2 mls/min Documented by: Pantoprazole Sodium 40 mg/ (Syringe) 10 mls @ 5 mls/min IV DAILY@1100 [facility] Stop: 03/22/19 10:59 Last Admin: 03/02/19 09:30 Dose: 5 mls/min Documented by: Cefepime HCl 2,000 mg/ Syringe 20 mls @ 5 mls/min IV Q8 [facility]; Protocol Stop: 03/04/19 12:44 Last Admin: 03/03/19 05:31 Dose: 5 mls/min Documented by: Propofol (Diprivan) 1,000 mg in 100 mls @ 1.809 mls/hr IV .Q24H PRN; Protocol PRN Reason: TITRATE Stop: 03/04/19 00:41 Last Titration: 03/03/19 06:54 Dose: 40 mcg/kg/min, 14.5 mls/hr Documented by: Loratadine (Claritin) 10 mg PO QAM [facility] Stop: 03/21/19 08:59 Last Admin: 03/03/19 08:07 Dose: 10 mg Documented by: Multivitamins/Minerals (Cerovite Liquid) 15 ml PO DAILY [facility] Stop: 03/23/19 10:59 Last Admin: 03/03/19 08:08 Dose: 15 ml Documented by: Nutritional Formula (Peptamen Intense Vhp) 1,000 ml GT CONT PRN; Protocol PRN Reason: TUBE FEED Stop: 03/22/19 12:14 Last Admin: 03/02/19 21:06 Dose: 1,000 ml Documented by: Ondansetron HCl (Zofran) 4 mg IV Q6H PRN PRN Reason: Nausea Stop: 03/20/19 18:20 Oxycodone/Acetaminophen (Percocet 5mg/325mg) 1 - 2 tab PO Q3H PRN PRN Reason: Pain Stop: 03/04/19 16:43 Paroxetine HCl (Paxil) 30 mg PO QAM [facility] Stop: 03/21/19 08:59 Last Admin: 03/03/19 08:08 Dose: 30 mg Documented by: Polyethylene Glycol (Miralax Powder Packet) 17 gm PO BID [facility] Stop: 05/01/19 08:59 Last Admin: 03/03/19 08:08 Dose: 17 gm Documented by: Prazosin HCl (Prazosin Hcl) 5 mg PO HS [facility] Stop: 03/20/19 20:59 Last Admin: 03/02/19 21:05 Dose: 5 mg Documented by: Tiotropium [place] (Spiriva) 1 puffs INH QAM [facility] Stop: 03/21/19 08:59 Last Admin: 03/03/19 08:10 Dose: Not Given Documented by: Tramadol HCl (Ultram) 50 mg PO QID PRN PRN Reason: pain Stop: 03/20/19 18:20 Last Admin: 02/19/19 04:04 Dose: 50 mg Documented by:
--- NOTE | 2019-03-03 09:24 | Critical Care Progress Note ---
Date of Service March 03, 2019 Supervising Physician Co-Signing Physician Notes Lung malignancy: Reason Critically Ill: 69-year-old male status post left upper lobectomy w/ chest tube on 02/18 who became hypoxic. Neuro - ICU sedation -Propofol infusion -Transitioning to intermittent bolus sedation CAM ICU positive -Hypoactive delirium EtOH abusereportedly drinks 18 beers per day -Would likely be outside of window given sedation history Cardiac - CADcontinue aspirin, Lipitor HTNcontinue Norvasc Respiratory - Small cell lung cancerstatus post left upper lobectomy with chest tube 02/18 -Left chest tube with air leak COPD/mucoid impaction/hypercarbichypoxic respiratory failure/pneumonia: -Patient has failed multiple extubation attempts -Will discuss with family regarding prognosis, therapeutic options GI GERDconversion to H2 secondary to medication shortage -Continue tube feedings RENAL/LYTES - Routine BMPs, maximize electrolytes and replete as necessary - BPHFoley inserted, continue prazosin ENDO - No history diabetes, ICU hyperglycemic protocol HEME - Anemia: Acute blood loss -Iron with vitamin C Decubiti -Wound nurse consult -Multivitamin with zinc ID - Moraxella pneumonia -Levaquin, finished 7-day course -Finishing cefepime: 7-day course LINES/IV ACCESS - Peripheral IVs, Shafer, OG tube, ETT, chest tube, Pleurx cath DVT PROPHYLAXIS - SCDs, Lovenox I have personally spent 45 minutes of critical care time in the direct management of this patient. This is a life/limb threatening event. This includes time spent evaluating patient, direct bedside care, chart review, placing orders, interpretation of diagnostic studies, discussion with consultants, patient, and/or family members regarding treatment decisions, as well as other required patient management activities. This time is exclusive of all separately billable procedures, and teaching time and separate from and in addition to any other critical care service time. Subjective remains sedated on vent Physical Exam Vital Signs (Past 24 Hours): Last Vital Signs Temp 37.2 C 03/03/19 08:00 Pulse 117 H 03/03/19 08:00 Resp 22 03/03/19 07:40 BP 124/65 03/03/19 08:00 Pulse Ox 92 03/03/19 08:00
[2019-03-03] MEDS ORDERED: ASCORBIC ACID 500 MG TAB NG ONE (09:45)
[2019-03-03] MEDS ORDERED: ZINC SULFATE 220 MG CAPSULE GT ONE (10:00)
[2019-03-03] MEDS ORDERED: FERROUS SULFATE 325 MG/7.4 ML UDP NG ONE (10:00)
[2019-03-03] MEDS: ACETAMINOPHEN SOLN 160 MG/5 ML BTL PO PRN ×2 (13:10→20:50)
[2019-03-03] MEDS: MIDAZOLAM HCL 1 MG/ML 2ML VIAL IV PRN ×2 (13:17→20:32)
--- NOTE | 2019-03-03 15:16 | XRay Report ---
XR chest 1V portable HISTORY: 69 years-old Male lines follow-up study in a patient with left pleural effusion COMPARISON: Chest radiograph of same day at 7:13 AM TECHNIQUE: Portable AP view of the chest FINDINGS: Stable positioning of the enteric tube. Endotracheal tube terminates 3.2 cm superior to the eris. M ultiple plantar leads are again noted projecting over the left hemithorax. 2 left-sided chest tubes a ppear unchanged. Left-sided hydropneumothorax redemonstrated which appears unchanged in size. Persist ent right pleural effusion with ill-defined bilateral opacities. Degenerative changes of the shoulder s and spine. Fusion hardware of the cervical spine. IMPRESSION: 1. Satisfactory positioning of life-support lines and tubes as above. 2. Postoperative changes of the left lung redemonstrated with unchanged left hydropneumothorax. The above report was generated using voice recognition software. It may contain grammatical, syntax o r spelling errors. Electronically signed by: Khoa Garcia M.D. 03/03/2019 3:15 PM
--- NOTE | 2019-03-03 15:16 | Ultrasound Report ---
US venous doppler LE CLINICAL HISTORY: 69 years-old Male presenting with recent hypoxia, ventilator-dependent respiratory failure, clinical concern for deep venous thrombosis. TECHNIQUE: Real-time grayscale and color and spectral Doppler ultrasound imaging of the veins of the bilateral lower extremities was performed. Compression and augmentation were also utilized. COMPARISON: None. FINDINGS: RIGHT: Common femoral vein: Patent. Greater saphenous vein (superficial): Patent. Deep femoral vein: Patent. Femoral vein: Patent. Popliteal vein: Patent. Calf veins: Patent. LEFT: Common femoral vein: Patent. Greater saphenous vein (superficial): Patent. Deep femoral vein: Patent. Femoral vein: Patent. Popliteal vein: Patent. Calf veins: Patent. Other: None. IMPRESSION: No evidence of deep venous thrombosis. Electronically signed by: Enio Trejo M.D. 03/03/2019 3:15 PM
[2019-03-03] MEDS ORDERED: KETOROLAC TROMETHAMINE 15 MG/ML VIAL IV ONE (16:43)
[2019-03-03] MEDS ORDERED: KETOROLAC 30 MG/ML VIAL ONE (16:44)
[2019-03-03] MEDS: ACYCLOVIR 400 MG TAB PO SCH ×2 (16:52→20:32)
--- NOTE | 2019-03-03 19:17 | Progress Note ---
DATE: 03/03/2019 Mr. Lomas is seen today on 03/03/2019. He is struggling a bit. His temperature has gone up. His white count is up to 21,380. He has also developed a rash and may have herpes zoster as he has had this in the past. His x-ray really does not look much different to me. He still has a left superior hydropneumothorax. Ultrasound was done which showed no evidence of deep vein thrombosis. His chest tube only put out about 30 mL; he still has an active air leak. His vital signs are generally a bit hypertensive with pulse rates as high as 130s. He had also been tachypneic. He does not sound that bad, although he has a few rhonchi. He has no wheezing. He is tolerating his tube feeds. I had a long talk with the patient and his as well as his 's nephew who is close to Mr. Lomas. She has been talking to many people and is considering a tracheostomy tube with a PEG tube and possible placement in an LTAC. We will have to see how he does. I am quite concerned about doing anything with him right now. The patient's problem with the air leak and the trapped lung on the left is a problem that will have to be solved at a different time. My hope is that if and when he does develop an empyema we will have it adequately drained. In addition, it is possible we could perform an Eloesser flap or perhaps a muscle or omental flap flap up to fill the space; however, I would like to let him get to that point first. As stated, he is draining very little from his chest tube and none from his PleurX. NEFTALY
[2019-03-03] MEDS: AMLODIPINE BESYLATE 5 MG TAB PO SCH (20:33)
[2019-03-03] MEDS: FAMOTIDINE 20 MG TAB PO SCH (20:33)
[2019-03-03] MEDS: PRAZOSIN HCL 1 MG CAP PO SCH (20:34)
[2019-03-03] MEDS: ATORVASTATIN 40 MG TAB PO SCH (20:35)
[2019-03-03] MEDS: FERROUS SULFATE 325 MG/7.4 ML UDP NG SCH (20:35)
[2019-03-03] MEDS: PEPTAMEN INTENSE VHP 1.0 CAL 1,000 ML BAG GT PRN (20:49)
[2019-03-04] MEDS: MIDAZOLAM HCL 1 MG/ML 2ML VIAL IV PRN ×7 (00:54→23:52)
[2019-03-04] MEDS: ALBUT/IPRATROP 3MG/0.5MG NEB 3 ML VIAL NEB SCH ×6 (03:23→23:59)
[2019-03-04 05:35] LABS: Basophils # (auto) 0.14 K/uL (0-0.2); Basophils % (auto) 0.8 %; Eosinophils # (auto) 0.05 K/uL (0-0.5); Eosinophils % (auto) 0.3 %; Hematocrit (blood only) 30.3 % (42-52); Hemoglobin 9.2 g/dL (14.0-18.0); Immature Granulocytes # (auto) 0.33 K/uL (0.00-0.02); Immature Granulocytes % (auto) 1.9 %; Lymphocytes # (auto) 2.34 K/uL (1.2-3.4); Lymphocytes % (auto) 13.4 %; Mean Corpuscular Hgb Conc 30.4 g/dL (32-36); Mean Corpuscular Volume 84.6 fL (80-100); Mean Platelet Volume 9.7 fL (7.4-10.4); Monocytes # (auto) 1.18 K/uL (0.11-0.59); Monocytes % (auto) 6.8 %; Neutrophils # (auto) 13.44 K/uL (1.4-6.5); Neutrophils % (auto) 76.8 %; Platelet Count 701 K/uL (130-400); RDW Coefficient of Variation 17.4 % (11.5-14.5); Red Blood Count 3.58 M/uL (4.7-6.1); White Blood Count 17.48 K/uL (4.8-10.8)
[2019-03-04 05:53] LABS: Alanine Aminotransferase 88 U/L (12-78); Albumin Level 2.1 gm/dl (3.4-5.0); Aspartate Aminotransferase 139 U/L (15-37); BUN Creatinine Ratio 84.8 (10-20); Bilirubin Direct < 0.1 mg/dl (0-0.2); Blood Urea Nitrogen 49 mg/dl (7-18); Calcium 8.1 mg/dl (8.5-10.1); Carbon Dioxide 31 mmol/L (21-32); Chloride 109 mmol/L (98-107); Creatinine Clr Calc Pharmacy 106.5 ml/min; Est GFR (African American) 122.3; Est GFR (Non-African American) 105.5; Glucose 123 mg/dl (70-99); Magnesium 2.5 mg/dl (1.8-2.4); Potassium 4.1 mmol/L (3.5-5.1); Sodium 143 mmol/L (136-145)
[2019-03-04 05:55] LABS: Alkaline Phosphatase 99 U/L (45-117); Bilirubin,Total 0.3 mg/dl (0.2-1); Total Protein 6.7 gm/dl (6.4-8.2)
[2019-03-04 05:55] LABS: iSTAT Arterial Blood Gas HCO3 29 meg/L (19-24); iSTAT Arterial Blood Gas pCO2 63 mmHg (35-46); iSTAT Arterial Blood Gas pH 7.28 (7.35-7.45); iSTAT Carbon Dioxide 31 mEq/l (24-31); iSTAT FiO2 35 %; iSTAT Site R Brachial
[2019-03-04] MEDS: ACYCLOVIR 400 MG TAB PO SCH ×5 (06:12→18:15)
[2019-03-04] MEDS: CEFEPIME 2,000 MG in SYRINGE 7.5 ML IV SCH (06:12)
--- NOTE | 2019-03-04 07:03 | XRay Report ---
XR chest 1V portable HISTORY: 69 years-old Male VDRF follow-up study in a patient with left-sided chest tubes COMPARISON: Chest radiograph 03/03/2018 TECHNIQUE: Portable AP view of the chest FINDINGS: Endotracheal tube overlies the midline, 3.3 cm superior to the eris. Stable left-sided chest tubes. Moderate left-sided hydropneumothorax is unchanged. Cardiac mediastinal and hilar silhouettes are wi thin normal limits. Trace right pleural effusion with mild bilateral interstitial coarsening. Suggest ion of mild pulmonary vascular congestion. Degenerative changes of the shoulders and spine. Fusion gallego rdware of the cervical spine. Stable positioning of feeding tube. IMPRESSION: 1. Stable positioning of the left-sided chest tubes with unchanged moderate left hydropneumothorax. 2. Endotracheal tube terminates 3.3 cm superior to the eris. 3. Enteric tube terminates within the expected location of the gastric fundus. The above report was generated using voice recognition software. It may contain grammatical, syntax o r spelling errors. Electronically signed by: Khoa Garcia M.D. 03/04/2019 7:02 AM
--- NOTE | 2019-03-04 07:21 | Critical Care Progress Note ---
Date of Service March 04, 2019 Assessment & Plan (1) Admitted to intensive care unit: (2) Lung malignancy: Reason Critically Ill: 69-year-old male here for hypoxia s/p left upper lobectomy with chest tube. Past medical history significant for EtOH abuse, BPH, CAD, COPD, Lung Malignancy, Gerd Neuro: -[facility] ICU: POSITIVE hypoactive delrium -Intermittent bolus sedation -EtOH abuse 18 beers a day/ outside window for EtOH withdrawal syx Cardiac: -CAD: asprin, lipitor -HTN: Norvasc Respiratory: -S/P left upper lobectomy with chest tube on 02/18 for resection of small cell lung ca -COPD -with impaction, hypoxia, hypercarbia -Failed extubation, goals of care meeting today GI: -Tube Feeding diet -On H2 david for ppx as ppi is on backorder -Monitor Liver enzymes RENAL/LYTES: -No significant electrolyte derangement. -Replace lytes as needed. ENDO: -Icu Hyperglycemic protocol HEME: -Stable H&H. -anemia: Iron with vit c ID: - Zoster outbreak yesterday -Acyclovir, hold atorva given elevated LFT -Per family occur when pt is stressed -Febrile -Per family pt always becomes febrile during zoster outbreaks -PNA completed 7 day course of Levaquin and Cefepime -Monitor fever curve. LINES/IV ACCESS: -PIVs intact. -Shafer, OG, ETT, Chest tube, pleurex cath DVT PROPHYLAXIS: -SCDS, lovenox -4/8 duplex u/s negative Dispo:pending goals of care discussion Thank you for allowing us to be part of this patient's care. Please refer to Dr. Virk's documentation for any further recommendations. Supervising Physician Co-Signing Physician Notes Dr. Nguyen was resident physician during care of patient. I separately evaluated patient for william portions of the history and the exam. I was present during the critical portion of medical decision making, and I discussed the case with the resident. I generally agree with the findings and plan. Lung malignancy: Reason Critically Ill: 69-year-old male status post left upper lobectomy w/ chest tube on 02/18 who became hypoxic. Neuro - ICU sedation -Transitioned to intermittent bolus sedation CAM ICU positive -Hypoactive delirium EtOH abusereportedly drinks 18 beers per day -Would likely be outside of window given sedation history Cardiac - CADcontinue aspirin, Lipitor HTNcontinue Norvasc Respiratory - Small cell lung cancerstatus post left upper lobectomy with chest tube 02/18 -Left chest tube with air leak COPD/mucoid impaction/hypercarbichypoxic respiratory failure/pneumonia: -Patient has failed multiple extubation attempts -Will discuss with family regarding prognosis, therapeutic options GI GERDconversion to H2 secondary to medication shortage -Continue tube feedings: Tube feed increased by 15 mL's per hour secondary to discontinuation of propofol RENAL/LYTES - Routine BMPs, maximize electrolytes and replete as necessary - BPHFoley inserted, continue prazosin ENDO - No history diabetes, ICU hyperglycemic protocol HEME - Anemia: Acute blood loss -Iron with vitamin C Decubiti -Wound nurse consult -Multivitamin with zinc ID - Moraxella pneumonia -Levaquin, finished 7-day course -Finished cefepime: 7-day course Febrile illness -Repeat blood cultures sent including fungal blood culture New onset zoster -Acyclovir 5 times daily -Holding the atorvastatin while on acyclovir LINES/IV ACCESS - Peripheral IVs, Shafer, OG tube, ETT, chest tube, Pleurx cath DVT PROPHYLAXIS - SCDs, Lovenox -Bilateral venous duplex negative 03/03 I have personally spent 55 minutes of critical care time in the direct management of this patient. This is a life/limb threatening event. This i ncludes time spent evaluating patient, direct bedside care, chart review, placing orders, interpretation of diagnostic studies, discussion with consultants, patient, and/or family members regarding treatment decisions, as well as other required patient management activities. This time is exclusive of all separately billable procedures, and teaching time and separate from and in addition to any other critical care service time. An extensive discussion with the patient's , son from his first marriage as well as a telephone conversation with the sons sister, patient's daughter. All were in agreement that the patient would want to undergo tracheostomy and percutaneous gastrostomy tube placement for continued treatment. Consents have been obtained for tracheostomy for possible percutaneous versus open. Subjective Pt intubated laying in bed this morning. No acute events overnight. Pt prognosis is poor. Physical Exam Vital Signs (Past 24 Hours): Last Vital Signs Temp 36.9 C 03/03/19 22:27 Pulse 113 H 04/09/19 06:00 Resp 21 03/04/19 05:47 BP 124/60 03/04/19 06:00 Pulse Ox 93 03/04/19 06:00 Eyes: PERRL, conjunctivae normal, anicteric sclerae Neck: trachea midline, no thyromegaly normal visual inspection and + limited neck extension (Mild limitation with extension) Respiratory: Intubated, Rhonci, scattered wheezes present. Cardiovascular: RRR, no murmur, no edema Rate/Rhythm: regular rate and regular rhythm Heart Sounds: normal S1 and normal S2 Vessels: no JVD Extremities: no edema Gastrointestinal (Abdomen): normal bowel sounds, soft, nontender, no hepatosplenomegaly Musculoskeletal: deconditioned Skin: no rashes, warm and dry Psychiatric: alert and responsive Results & Data Laboratory Results 03/04/19 05:16 03/04/19 05:16 03/04/19 03/04/19 03/04/19 Range/Units 05:36 05:16 05:16 WBC 17.48 H (4.8-10.8) K/uL RBC 3.58 L (4.7-6.1) M/uL Hgb 9.2 L (14.0-18.0) g/dL Hct 30.3 L (42-52) % MCV 84.6 (80-100) fL MCH 25.7 (25-34) pg MCHC 30.4 L (32-36) g/dL RDW Std Deviation 54.0 H (36.4-46.3) fL RDW Coeff of Nguyen 17.4 H (11.5-14.5) % Plt Count 701 H (130-400) K/uL MPV 9.7 (7.4-10.4) fL Immature Gran % (Auto) 1.9 % Neut % (Auto) 76.8 % Lymph % (Auto) 13.4 % [place] % (Auto) 6.8 % Eos % (Auto) 0.3 % Baso % (Auto) 0.8 % Immature Gran # (Auto) 0.33 H (0.00-0.02) K/uL Neut # (Auto) 13.44 H (1.4-6.5) K/uL Lymph # (Auto) 2.34 (1.2-3.4) K/uL [place] # (Auto) 1.18 H (0.11-0.59) K/uL Eos # (Auto) 0.05 (0-0.5) K/uL Baso # (Auto) 0.14 (0-0.2) K/uL Sample Site R Brachial POC pH 7.28 L (7.35-7.45) POC pCO2 63 H (35-46) mmHg POC pO2 111 H (80-95) mmHg POC HCO3 29 H (19-24) ange/L POC Total CO2 31 (24-31) mEq/l POC Base Excess 3.0 H (-9-1.8) nage/L POC ABG O2 Sat 97.0 H (90-95) % Kaden Test NA O2 Delivery Device Ventilator POC O2 Rate 20 Minute Ventilation 12.0 POC FiO2 35 % Tidal Volume 550 PEEP 5 Sodium 143 (136-145) mmol/L Potassium 4.1 (3.5-5.1) mmol/L Chloride 109 H (98-107) mmol/L Carbon Dioxide 31 (21-32) mmol/L Anion Gap 3.0 (3-11) BUN 49 H (7-18) mg/dl Creatinine 0.57 L (0.6-1.4) mg/dl Est Cr Clr Drug Dosing 106.5 ml/min Est GFR ( Amer) 122.3 Est GFR (Non-Af Amer) 105.5 BUN/Creatinine Ratio 84.8 H (10-20) Glucose 123 H (70-99) mg/dl Calcium 8.1 L (8.5-10.1) mg/dl Phosphorus 4.0 (2.5-4.9) mg/dl Magnesium 2.5 H (1.8-2.4) mg/dl Total Bilirubin 0.3 (0.2-1) mg/dl Direct Bilirubin < 0.1 (0-0.2) mg/dl AST 139 H (15-37) U/L ALT 88 H (12-78) U/L Alkaline Phosphatase 99 (45-117) U/L Total Protein 6.7 (6.4-8.2) gm/dl Albumin 2.1 L (3.4-5.0) gm/dl VZV Culture Viral Specimen Source 03/03/19 Range/Units 14:33 WBC (4.8-10.8) K/uL RBC (4.7-6.1) M/uL Hgb (14.0-18.0) g/dL Hct (42-52) % MCV (80-100) fL MCH (25-34) pg MCHC (32-36) g/dL RDW Std Deviation (36.4-46.3) fL RDW Coeff of Nguyen (11.5-14.5) % Plt Count (130-400) K/uL MPV (7.4-10.4) fL Immature Gran % (Auto) % Neut % (Auto) % Lymph % (Auto) % [place] % (Auto) % Eos % (Auto) % Baso % (Auto) % Immature Gran # (Auto) (0.00-0.02) K/uL Neut # (Auto) (1.4-6.5) K/uL Lymph # (Auto) (1.2-3.4) K/uL [place] # (Auto) (0.11-0.59) K/uL Eos # (Auto) (0-0.5) K/uL Baso # (Auto) (0-0.2) K/uL Sample Site POC pH (7.35-7.45) POC pCO2 (35-46) mmHg POC pO2 (80-95) mmHg POC HCO3 (19-24) ange/L POC Total CO2 (24-31) mEq/l POC Base Excess (-9-1.8) ange/L POC ABG O2 Sat (90-95) % Kaden Test O2 Delivery Device POC O2 Rate Minute Ventilation POC FiO2 % Tidal Volume PEEP Sodium (136-145) mmol/L Potassium (3.5-5.1) mmol/L Chloride (98-107) mmol/L Carbon Dioxide (21-32) mmol/L Anion Gap (3-11) BUN (7-18) mg/dl Creatinine (0.6-1.4) mg/dl Est Cr Clr Drug Dosing ml/min Est GFR ( Amer) Est GFR (Non-Af Amer) BUN/Creatinine Ratio (10-20) Glucose (70-99) mg/dl Calcium (8.5-10.1) mg/dl Phosphorus (2.5-4.9) mg/dl Magnesium (1.8-2.4) mg/dl Total Bilirubin (0.2-1) mg/dl Direct Bilirubin (0-0.2) mg/dl AST (15-37) U/L ALT (12-78) U/L Alkaline Phosphatase (45-117) U/L Total Protein (6.4-8.2) gm/dl Albumin (3.4-5.0) gm/dl VZV Culture Pending Viral Specimen Source Pending Medications Administered Current Inpatient Medications Acetaminophen (Tylenol) 1,000 mg PO Q8H PRN PRN Reason: Pain or Fever Stop: 03/27/19 09:07 Last Admin: 03/03/19 20:50 Dose: 1,000 mg Documented by: Acyclovir (Zovirax) 800 mg PO [id number] [facility]; Protocol Stop: 03/10/19 15:59 Last Admin: 03/04/19 06:12 Dose: 800 mg Documented by: Albuterol (Duoneb) 3 ml NEB Q4R [facility] Stop: 03/21/19 11:59 Last Admin: 03/04/19 03:23 Dose: 3 ml Documented by: Amlodipine Besylate (Norvasc) 10 mg PO HS [facility] Stop: 03/20/19 20:59 Last Admin: 03/03/19 20:33 Dose: 10 mg Documented by: Ascorbic Acid (Vitamin C) 1,000 mg NG DAILY [facility] Stop: 04/03/19 08:59 Aspirin (Aspirin Chew) 81 mg PO DAILY [facility] Stop: 03/23/19 08:59 Last Admin: 03/03/19 08:08 Dose: 81 mg Documented by: Atorvastatin Calcium (Lipitor) 80 mg PO HS [facility] Stop: 03/20/19 20:59 Last Admin: 03/03/19 20:35 Dose: 80 mg Documented by: Budesonide/Formoterol Fumarate (Symbicort 160mcg/4.5mcg) 2 puffs INH BID [facility] Stop: 03/20/19 20:59 Last Admin: 03/03/19 08:10 Dose: Not Given Documented by: Calcium Polycarbophil (Fibercon) 1 tab PO QAM [facility] Stop: 03/21/19 08:59 Last Admin: 03/03/19 08:09 Dose: 1 tab Documented by: Docusate Sodium (Colace) 100 mg PO BID [facility] Stop: 03/22/19 10:59 Last Admin: 03/03/19 20:32 Dose: 100 mg Documented by: Enoxaparin Sodium (Lovenox) 40 mg SQ QAM [facility] Stop: 03/21/19 08:59 Last Admin: 03/03/19 08:08 Dose: 40 mg Documented by: Famotidine (Pepcid) 20 mg PO BID [facility] Stop: 04/02/19 20:59 Last Admin: 03/03/19 20:33 Dose: 20 mg Documented by: Fentanyl Citrate (Fentanyl Citrate) 50 mcg IV Q1H PRN PRN Reason: Severe Pain (7,8,9,10) Stop: 03/05/19 16:22 Last Admin: 03/03/19 14:16 Dose: 50 mcg Documented by: Ferrous Sulfate (Feosol) 325 mg NG BID [facility] Stop: 04/02/19 20:59 Last Admin: 03/03/19 20:35 Dose: 325 mg Documented by: Fluticasone Propionate (Flonase) 2 sprays NA QAM [facility] Stop: 03/20/19 18:20 Last Admin: 03/03/19 08:09 Dose: Not Given Documented by: Folic Acid (Folvite) 1 mg PO DAILY [facility] Stop: 03/22/19 08:59 Last Admin: 03/03/19 08:09 Dose: 1 mg Documented by: Cefepime HCl 2,000 mg/ Syringe 20 mls @ 5 mls/min IV Q8 [facility]; Protocol Stop: 03/04/19 12:44 Last Admin: 03/04/19 06:12 Dose: 5 mls/min Documented by: Loratadine (Claritin) 10 mg PO QAM [facility] Stop: 03/21/19 08:59 Last Admin: 03/03/19 08:07 Dose: 10 mg Documented by: Midazolam HCl (Versed) 2 mg IV Q2H PRN PRN Reason: Sedation Stop: 04/02/19 09:39 Last Admin: 03/04/19 04:49 Dose: 2 mg Documented by: Multivitamins/Minerals (Cerovite Liquid) 15 ml PO DAILY [facility] Stop: 03/23/19 10:59 Last Admin: 03/03/19 08:08 Dose: 15 ml Documented by: Nutritional Formula (Peptamen Intense Vhp) 1,000 ml GT CONT PRN; Protocol PRN Reason: TUBE FEED Stop: 03/22/19 12:14 Last Admin: 03/03/19 20:49 Dose: 1,000 ml Documented by: Ondansetron HCl (Zofran) 4 mg IV Q6H PRN PRN Reason: Nausea Stop: 03/20/19 18:20 Oxycodone/Acetaminophen (Percocet 5mg/325mg) 1 - 2 tab PO Q3H PRN PRN Reason: Pain Stop: 03/04/19 16:43 Last Admin: 03/04/19 00:40 Dose: 2 tab Documented by: Paroxetine HCl (Paxil) 30 mg PO QAM [facility] Stop: 03/21/19 08:59 Last Admin: 03/03/19 08:08 Dose: 30 mg Documented by: Polyethylene Glycol (Miralax Powder Packet) 17 gm PO BID [facility] Stop: 03/26/19 08:59 Last Admin: 03/03/19 20:32 Dose: 17 gm Documented by: Prazosin HCl (Prazosin Hcl) 5 mg PO HS [facility] Stop: 03/20/19 20:59 Last Admin: 03/03/19 20:34 Dose: 5 mg Documented by: Tiotropium [place] (Spiriva) 1 puffs INH QAM [facility] Stop: 03/21/19 08:59 Last Admin: 03/03/19 08:10 Dose: Not Given Documented by: Tramadol HCl (Ultram) 50 mg PO QID PRN PRN Reason: pain Stop: 03/20/19 18:20 Last Admin: 02/19/19 04:04 Dose: 50 mg Documented by: Zinc Sulfate (Zinc Sulfate) 220 mg GT DAILY [facility] Stop: 04/03/19 08:59 Resident Activity Tracking Resident Involvement: Resident Care Provided Care Provided: Adult Hospital Medicine (ICU)
[2019-03-04] MEDS: FOLIC ACID 1 MG TAB PO SCH (08:17)
[2019-03-04] MEDS: PARoxetine HCl 20 MG TAB PO SCH (08:17)
[2019-03-04] MEDS: DOCUSATE SODIUM SYRUP 100 MG/10 ML UDC PO SCH ×2 (08:17→20:31)
[2019-03-04] MEDS: CALCIUM POLYCARBOPHIL 625MG TAB PO SCH (08:17)
[2019-03-04] MEDS: ASPIRIN 81 MG CHEW PO SCH (08:17)
[2019-03-04] MEDS: LORATADINE 10 MG TAB PO SCH (08:18)
[2019-03-04] MEDS: MULTI VIT W/MINERALS LIQUID 15 ML UDP PO SCH (08:18)
[2019-03-04] MEDS: ZINC SULFATE 220 MG CAPSULE GT SCH (08:18)
[2019-03-04] MEDS: FAMOTIDINE 20 MG TAB PO SCH ×2 (08:18→20:31)
[2019-03-04] MEDS: ASCORBIC ACID 500 MG TAB NG SCH (08:18)
[2019-03-04] MEDS: ENOXAPARIN INJ 40 MG/0.4 ML SYR SQ SCH (08:18)
[2019-03-04] MEDS: POLYETHYLENE (MIRALAX) 17 GM PACK PO SCH ×2 (08:18→20:31)
[2019-03-04] MEDS: FERROUS SULFATE 325 MG/7.4 ML UDP NG SCH ×2 (08:18→20:31)
[2019-03-04] MEDS: fentaNYL citrate 100 MCG/2 ML VIAL IV PRN ×4 (10:41→23:52)
[2019-03-04] MEDS: PEPTAMEN INTENSE VHP 1.0 CAL 1,000 ML BAG GT PRN (15:58)
--- NOTE | 2019-03-04 18:45 | Progress Note ---
DATE: 03/04/2019 Mr. Lomas was seen today on 03/04/2019. Yordan is awake, much more awake than he has been. He is not under as much sedation. Airway pressures appear to be fairly stable in the high 20s. He has been spiking fevers and it is 38.8 today. His white count has come down a bit today at 17,048 and his hemoglobin is relatively stable at 9.2. He does have rhonchi upon listening to his lungs. His chest tube has drained very little. He does have an air leak. ASSESSMENT AND PLAN: Postoperative day #14 status post robot-assisted thoracoscopic completion left upper lobectomy with mediastinal lymphadenectomy. He appears to have had a herpes zoster outbreak also. I am concerned but I would like to try and get him over this acute process. We will deal with his space problem in his left upper chest in the future.
[2019-03-04] MEDS: AMLODIPINE BESYLATE 5 MG TAB PO SCH (20:31)
[2019-03-04] MEDS: PRAZOSIN HCL 1 MG CAP PO SCH (20:32)
[2019-03-05] MEDS: MIDAZOLAM HCL 1 MG/ML 2ML VIAL IV PRN ×6 (02:59→23:09)
[2019-03-05] MEDS: fentaNYL citrate 100 MCG/2 ML VIAL IV PRN ×5 (02:59→23:09)
[2019-03-05] MEDS: ALBUT/IPRATROP 3MG/0.5MG NEB 3 ML VIAL NEB SCH ×6 (04:04→23:23)
[2019-03-05 05:08] LABS: Hematocrit (blood only) 28.2 % (42-52); Hemoglobin 8.5 g/dL (14.0-18.0); Mean Corpuscular Hgb Conc 30.1 g/dL (32-36); Mean Corpuscular Volume 84.9 fL (80-100); Mean Platelet Volume 9.6 fL (7.4-10.4); Platelet Count 737 K/uL (130-400); RDW Coefficient of Variation 17.5 % (11.5-14.5); RDW Standard Deviation 54.3 fL (36.4-46.3); Red Blood Count 3.32 M/uL (4.7-6.1); White Blood Count 16.89 K/uL (4.8-10.8)
[2019-03-05 05:26] LABS: Albumin Level 2.1 gm/dl (3.4-5.0); BUN Creatinine Ratio 90.5 (10-20); Calcium 8.3 mg/dl (8.5-10.1); Creatinine Clr Calc Pharmacy 129.1 ml/min; Est GFR (African American) 132.4; Est GFR (Non-African American) 114.2; Magnesium 2.4 mg/dl (1.8-2.4); Potassium 3.9 mmol/L (3.5-5.1)
[2019-03-05 05:38] LABS: Albumin Globulin Ratio 0.5 (0.9-2); Bilirubin,Total 0.2 mg/dl (0.2-1); Globulin 4.2 gm/dl (2.5-4.0); Phosphorus 2.8 mg/dl (2.5-4.9); Total Protein 6.3 gm/dl (6.4-8.2)
[2019-03-05] MEDS: ACYCLOVIR 400 MG TAB PO SCH ×5 (06:13→20:09)
--- NOTE | 2019-03-05 07:08 | XRay Report ---
XR chest 1V portable CLINICAL HISTORY: [facility] postoperative COMPARISON STUDY: 03/04/2019 FINDINGS: Endotracheal tube unchanged in position at 3.3 cm both eris. Left-sided chest tubes are u nchanged in location. Left-sided hydropneumothorax is unchanged. Pleural separation distances are sta ble. Right lung remains grossly clear. There is trace amount pleural fluid at the right and to a somewhat greater extent left base. There is nasogastric tube/feeding tube within the gastric fundus. IMPRESSION: 1. Unchanged exam. 2. Stable left hydropneumothorax. 3. All tubes and lines are unchanged in position. The above report was generated using voice recognition software. It may contain grammatical, syntax or spelling errors. Electronically signed by: Jimmie Kaur M.D. 03/05/2019 7:07 AM
--- NOTE | 2019-03-05 08:07 | Critical Care Progress Note ---
Date of Service March 05, 2019 Assessment & Plan (1) Admitted to intensive care unit: (2) Lung malignancy: Reason Critically Ill: 69-year-old male here for hypoxia s/p left upper lobectomy with chest tube. Past medical history significant for EtOH abuse, BPH, CAD, COPD, Lung Malignancy, Gerd Neuro: -[facility] ICU: POSITIVE hypoactive delrium -Intermittent bolus sedation -EtOH abuse 18 beers a day/ outside window for EtOH withdrawal syx Cardiac: -CAD: asprin, lipitor -HTN: Norvasc Respiratory: -POD 15 S/P left upper lobectomy with chest tube on 02/18 for resection of small cell lung ca -COPD -with impaction, hypoxia, hypercarbia -Failed multiple extubation attempts -Planned trach placement GI: -Planned Peg tube placement -Tube Feeding diet -On H2 david for ppx as ppi is on backorder -Monitor Liver enzymes, improved today RENAL/LYTES: -No significant electrolyte derangement. -Replace lytes as needed. ENDO: -Icu Hyperglycemic protocol HEME: -HGB dropped 0.5 continue to trend -anemia: Iron with vit c ID: - Zoster outbreak yesterday -Acyclovir, hold atorva given elevated LFT -Per family outbreaks occur when pt is stressed -Febrile -Per family pt always becomes febrile during zoster outbreaks -Cooling blanket prn -PNA completed 7 day course of Levaquin and Cefepime -Monitor fever curve. LINES/IV ACCESS: -PIVs intact. -Shafer, OG, ETT, Chest tube, pleurex cath DVT PROPHYLAXIS: -SCDS, lovenox -4/8 duplex u/s negative Dispo:pending trach and peg placement Thank you for allowing us to be part of this patient's care. Please refer to Dr. Virk's documentation for any further recommendations. Supervising Physician Co-Signing Physician Notes Dr. Nguyen was resident physician during care of patient. I separately evaluated patient for william portions of the history and the exam. I was present during the critical portion of medical decision making, and I discussed the case with the resident. I generally agree with the findings and plan. Lung malignancy: Reason Critically Ill: 69-year-old male status post left upper lobectomy w/ chest tube on 02/18 who became hypoxic. Neuro - ICU sedation -Transitioned to intermittent bolus sedation [facility] ICU positive -Hypoactive delirium EtOH abusereportedly drinks 18 beers per day -Would likely be outside of window given sedation history Cardiac - CADcontinue aspirin, Lipitor HTNcontinue Norvasc Respiratory - lung cancerstatus post left upper lobectomy with chest tube 02/18 -Left chest tube with air leak COPD/mucoid impaction/hypercarbichypoxic respiratory failure/pneumonia: -Patient has failed multiple extubation attempts -Planned undergo tracheostomy with PEG placement GI GERDconversion to H2 secondary to medication shortage -Continue tube feedings: Running at goal 65 Constipation -30 mL's mineral oil RENAL/LYTES - Routine BMPs, maximize electrolytes and replete as necessary - BPHdiscontinue Shafer ENDO - No history diabetes, ICU hyperglycemic protocol HEME - Anemia: Acute blood loss -Iron with vitamin C Decubiti: Possibly related to herpes zoster -Wound nurse consult -Multivitamin with zinc ID - Moraxella pneumonia -Levaquin, finished 7-day course -Finished cefepime: 7-day course Febrile illness -Repeat blood cultures sent including fungal blood culture 03/03 -Pro-calcitonin pending Herpes zoster: Decubiti might not be actual decubiti versus skin breakdown from zoster breakout -Acyclovir 5 times daily -Holding the atorvastatin while on acyclovir LINES/IV ACCESS - Peripheral IVs, core safe NG tube, ETT, chest tube, Pleurx cath DVT PROPHYLAXIS - SCDs, Lovenox -Bilateral venous duplex negative 03/03 Patient was discussed in multidisciplinary rounds, I discussed the patient with Dr. Myers at this point a major plan is timing of his tracheostomy and PEG tube. We will continue to attempt the patient on CPAP breathing trials to o ptimally exercise the diaphragm. I have personally spent 35 minutes of critical care time in the direct management of this patient. This is a life/limb threatening event. This includes time spent evaluating patient, direct bedside care, chart review, placing orders, interpretation of diagnostic studies, discussion with consultants, patient, and/or family members regarding treatment decisions, as well as other required patient management activities. This time is exclusive of all separately billable procedures, and teaching time and separate from and in addition to any other critical care service time. Clinical update I discussed the case with Dr. Hernandez, unable to place PEG tube safely at this time. Subjective Pt laying in bed, alert and intubated. Goals of care meeting yesterday, family elected to have a trach and peg tube placed and procedure to fix chest tube. No acute concerns from nursing. Pt has been hypertensive likely 2/2 to agitation. Prognosis is certainly improving Physical Exam Vital Signs (Past 24 Hours): Last Vital Signs Temp 37.7 C H 03/05/19 04:00 Pulse 115 H 03/05/19 07:25 Resp 29 H 03/05/19 07:25 BP 104/57 L 03/05/19 06:00 Pulse Ox 94 03/05/19 07:25 Eyes: PERRL, conjunctivae normal, anicteric sclerae Neck: trachea midline, no thyromegaly normal visual inspection and + limited neck extension (Mild limitation with extension) Cardiovascular: RRR, no murmur, no edema Rate/Rhythm: regular rate and regular rhythm Heart Sounds: normal S1 and normal S2 Vessels: no JVD Extremities: no edema Gastrointestinal (Abdomen): normal bowel sounds, soft, nontender, no hep atosplenomegaly Skin: no rashes, warm and dry Results & Data Laboratory Results 03/05/19 04:47 03/05/19 04:47 03/05/19 03/05/19 03/05/19 Range/Units 08:44 04:47 04:47 WBC 16.89 H (4.8-10.8) K/uL RBC 3.32 L (4.7-6.1) M/uL Hgb 8.5 L (14.0-18.0) g/dL Hct 28.2 L (42-52) % MCV 84.9 (80-100) fL MCH 25.6 (25-34) pg MCHC 30.1 L (32-36) g/dL RDW Std Deviation 54.3 H (36.4-46.3) fL RDW Coeff of Nguyen 17.5 H (11.5-14.5) % Plt Count 737 H (130-400) K/uL MPV 9.6 (7.4-10.4) fL Sodium 145 (136-145) mmol/L Potassium 3.9 (3.5-5.1) mmol/L Chloride 111 H (98-107) mmol/L Carbon Dioxide 32 (21-32) mmol/L Anion Gap 2.0 L (3-11) BUN 42 H (7-18) mg/dl Creatinine 0.47 L (0.6-1.4) mg/dl Est Cr Clr Drug Dosing 129.1 ml/min Est GFR ( Amer) 132.4 Est GFR (Non-Af Amer) 114.2 BUN/Creatinine Ratio 90.5 H (10-20) Glucose 121 H (70-99) mg/dl Calcium 8.3 L (8.5-10.1) mg/dl Phosphorus 2.8 D (2.5-4.9) mg/dl Magnesium 2.4 (1.8-2.4) mg/dl Total Bilirubin 0.2 (0.2-1) mg/dl AST 116 H (15-37) U/L ALT 82 H (12-78) U/L Alkaline Phosphatase 93 (45-117) U/L Total Protein 6.3 L (6.4-8.2) gm/dl Albumin 2.1 L (3.4-5.0) gm/dl Globulin 4.2 H (2.5-4.0) gm/dl Albumin/Globulin Ratio 0.5 L (0.9-2) Procalcitonin 0.06 (0-0.5) ng/ml Medications Administered Current Inpatient Medications Acetaminophen (Tylenol) 1,000 mg PO Q8H PRN PRN Reason: Pain or Fever Stop: 03/27/19 09:07 Last Admin: 03/05/19 09:01 Dose: 1,000 mg Documented by: Acyclovir (Zovirax) 800 mg PO [id number] [facility]; Protocol Stop: 03/10/19 15:59 Last Admin: 03/05/19 08:44 Dose: 800 mg Documented by: Albuterol (Duoneb) 3 ml NEB Q4R [facility] Stop: 03/21/19 11:59 Last Admin: 03/05/19 07:21 Dose: 3 ml Documented by: Amlodipine Besylate (Norvasc) 10 mg PO HS [facility] Stop: 03/20/19 20:59 Last Admin: 03/04/19 20:31 Dose: 10 mg Documented by: Ascorbic Acid (Vitamin C) 1,000 mg NG DAILY [facility] Stop: 04/03/19 08:59 Last Admin: 03/05/19 08:43 Dose: 1,000 mg Documented by: Aspirin (Aspirin Chew) 81 mg PO DAILY [facility] Stop: 03/23/19 08:59 Last Admin: 03/05/19 08:47 Dose: 81 mg Documented by: Atorvastatin Calcium (Lipitor) 80 mg PO HS [facility] Stop: 03/20/19 20:59 Last Admin: 03/03/19 20:35 Dose: 80 mg Documented by: Budesonide/Formoterol Fumarate (Symbicort 160mcg/4.5mcg) 2 puffs INH BID [facility] Stop: 03/20/19 20:59 Last Admin: 03/03/19 08:10 Dose: Not Given Documented by: Calcium Polycarbophil (Fibercon) 1 tab PO QAM [facility] Stop: 03/21/19 08:59 Last Admin: 03/05/19 08:43 Dose: 1 tab Documented by: Docusate Sodium (Colace) 100 mg PO BID [facility] Stop: 03/22/19 10:59 Last Admin: 03/05/19 08:37 Dose: 100 mg Documented by: Enoxaparin Sodium (Lovenox) 40 mg SQ QAM [facility] Stop: 03/21/19 08:59 Last Admin: 03/05/19 08:44 Dose: 40 mg Documented by: Famotidine (Pepcid) 20 mg PO BID [facility] Stop: 04/02/19 20:59 Last Admin: 03/05/19 08:37 Dose: 20 mg Documented by: Fentanyl Citrate (Fentanyl Citrate) 50 mcg IV Q1H PRN PRN Reason: Severe Pain (7,8,9,10) Stop: 03/05/19 16:22 Last Admin: 03/05/19 08:47 Dose: 50 mcg Documented by: Ferrous Sulfate (Feosol) 325 mg NG BID [facility] Stop: 04/02/19 20:59 Last Admin: 03/05/19 08:37 Dose: 325 mg Documented by: Fluticasone Propionate (Flonase) 2 sprays NA QAM [facility] Stop: 03/20/19 18:20 Last Admin: 03/03/19 08:09 Dose: Not Given Documented by: Folic Acid (Folvite) 1 mg PO DAILY [facility] Stop: 03/22/19 08:59 Last Admin: 03/05/19 08:43 Dose: 1 mg Documented by: Loratadine (Claritin) 10 mg PO QAM [facility] Stop: 03/21/19 08:59 Last Admin: 03/05/19 08:43 Dose: 10 mg Documented by: Midazolam HCl (Versed) 2 mg IV Q2H PRN PRN Reason: Sedation Stop: 04/02/19 09:39 Last Admin: 03/05/19 08:48 Dose: 2 mg Documented by: Multivitamins/Minerals (Cerovite Liquid) 15 ml PO DAILY [facility] Stop: 03/23/19 10:59 Last Admin: 03/05/19 08:44 Dose: 15 ml Documented by: Nutritional Formula (Peptamen Intense Vhp) 1,000 ml GT CONT PRN; Protocol PRN Reason: TUBE FEED Stop: 03/22/19 12:14 Last Admin: 03/04/19 15:58 Dose: 1,000 ml Documented by: Ondansetron HCl (Zofran) 4 mg IV Q6H PRN PRN Reason: Nausea Stop: 03/20/19 18:20 Paroxetine HCl (Paxil) 30 mg PO QAM [facility] Stop: 03/21/19 08:59 Last Admin: 03/05/19 08:37 Dose: 30 mg Documented by: Polyethylene Glycol (Miralax Powder Packet) 17 gm PO BID [facility] Stop: 03/26/19 08:59 Last Admin: 03/05/19 08:47 Dose: 17 gm Documented by: Prazosin HCl (Prazosin Hcl) 5 mg PO HS [facility] Stop: 03/20/19 20:59 Last Admin: 03/04/19 20:32 Dose: 5 mg Documented by: Tiotropium [place] (Spiriva) 1 puffs INH QAM [facility] Stop: 03/21/19 08:59 Last Admin: 03/03/19 08:10 Dose: Not Given Documented by: Zinc Sulfate (Zinc Sulfate) 220 mg GT DAILY [facility] Stop: 04/03/19 08:59 Last Admin: 03/05/19 08:43 Dose: 220 mg Documented by: Resident Activity Tracking Resident Involvement: Resident Care Provided Care Provided: Adult Hospital Medicine (ICU)
[2019-03-05] MEDS: FAMOTIDINE 20 MG TAB PO SCH ×2 (08:37→20:09)
[2019-03-05] MEDS: DOCUSATE SODIUM SYRUP 100 MG/10 ML UDC PO SCH ×2 (08:37→20:09)
[2019-03-05] MEDS: PARoxetine HCl 20 MG TAB PO SCH (08:37)
[2019-03-05] MEDS: FERROUS SULFATE 325 MG/7.4 ML UDP NG SCH ×2 (08:37→20:09)
[2019-03-05] MEDS: CALCIUM POLYCARBOPHIL 625MG TAB PO SCH (08:43)
[2019-03-05] MEDS: LORATADINE 10 MG TAB PO SCH (08:43)
[2019-03-05] MEDS: ASCORBIC ACID 500 MG TAB NG SCH (08:43)
[2019-03-05] MEDS: ZINC SULFATE 220 MG CAPSULE GT SCH (08:43)
[2019-03-05] MEDS: FOLIC ACID 1 MG TAB PO SCH (08:43)
[2019-03-05] MEDS: ENOXAPARIN INJ 40 MG/0.4 ML SYR SQ SCH (08:44)
[2019-03-05] MEDS: MULTI VIT W/MINERALS LIQUID 15 ML UDP PO SCH (08:44)
[2019-03-05] MEDS: POLYETHYLENE (MIRALAX) 17 GM PACK PO SCH ×2 (08:47→20:10)
[2019-03-05] MEDS: ASPIRIN 81 MG CHEW PO SCH (08:47)
[2019-03-05] MEDS ORDERED: MINERAL OIL 30 ML UDC NG ONE (09:00)
[2019-03-05] MEDS: ACETAMINOPHEN SOLN 160 MG/5 ML BTL PO PRN (09:01)
--- NOTE | 2019-03-05 10:42 | Gastrointestinal Consultation ---
Date of Consultation March 05, 2019 Assessment & Plan (1) Poor fluid intake: Patient is a 69 yo male with COPD and lung cancer s/p left upper lobectomy who has failed multiple attempts at extubation. He has recently been treated for Moraxella pneumonia. He has active shingles at present. He has a reported history of alcohol abuse with a consumption of 18 beers daily. Notably on physical exam he is cachetic and has hepatomegaly. GI has been consulted for consideration of a PEG tube. Given patient's body habitus, I am unsure that a feeding tube could be placed endoscopically. Given hepatomegaly and history of alcohol abuse, I would recommend obtaining a CT scan of the abdomen/pelvis with IV contrast and po contrast via an NG tube. If found to have ascites, would recommend surgical consultation for placement of a feeding tube. Regardless of this, I would recommend feeding via NG tube in the interim and allow his shingles to resolve. Further recommendations to be made based on results of CT scan. Thank you for allowing us to participate in the care of this patient. If you s hould have any further questions or concerns, do not hesitate to contact us at [phone] or [phone]. Present on Admission?: No Supervising Physician Co-Signing Physician Notes Agree with DAMIR Jacome as above Patient remains intubated Abd: Soft, ND, Hepatomegaly 3 cm below costal margin on right, +BS Continue NG Tube feeds at present Patient still with intermittent fevers, resolving pneumonia, abdominal lymphadenopathy on CT imaging, active shingles and Metastatic CA Consider hospice consult as prognosis is poor History of Present Illness Reason for Consultation: Need for alternative nutrition; PEG tube consideration Attending Physician: Jeremy Myers MD, [facility] History of Present Illness Patient is a 69 yo male currently hospitalized in the ICU. He recently underwent a left upper lobectomy by Dr. Myers due to lung cancer. He has severe COPD and has failed multiple extubation attempts. He has a chest tube placed. A tracheostomy is planned. He was just treated for a Moraxella pneumonia. He completed a course of Levaquin and Cefepime. He is an alcoholic and reportedly drinks 18 beers daily. He is currently receiving enteral feeds of Peptamen. He has active shingles. He is unable to participate in a review of systems due to intubation and sedation. Allergies Allergy/AdvReac Type Severity Reaction Status Date / Time Penicillins Allergy Intermediate NECK Verified 02/18/19 06:21 SWELLS, RASH Sulfa (Sulfonamide Allergy Mild RASH Verified 02/18/19 06:21 Antibiotics) Home Medications Home Medications Medication Instructions Recorded Confirmed Type Spiriva with HandiHaler 1 cap INHALATION [facility] 12/17/18 02/18/19 History Symbicort 2 puff INHALATION BID 12/17/18 02/18/19 History amlodipine 10 mg PO 12/17/18 02/18/19 History aspirin [Aspir-81] 81 mg PO [facility] 12/17/18 02/18/19 History atorvastatin 80 mg PO 12/17/18 02/18/19 History calcium polycarbophil [Fiber 1 tab PO [facility] 12/17/18 02/18/19 History (calcium polycarbophil)] cyanocobalamin (vitamin B-12) 2,500 mcg PO [facility] 12/17/18 02/18/19 History fluticasone propionate [Flonase 2 spray INTRANASAL [facility] 12/17/18 02/18/19 History Allergy Relief] loratadine 10 mg PO [facility] 12/17/18 02/18/19 History lorazepam [Ativan] 0.5 mg PO BID PRN 12/17/18 02/18/19 History multivitamin 1 tab PO [facility] 12/17/18 02/18/19 History omeprazole 40 mg PO QA 12/17/18 02/18/19 History paroxetine HCl 30 mg PO [facility] 12/17/18 02/18/19 History potassium 99 mg PO 12/17/18 02/18/19 History prazosin 5 mg PO 12/17/18 02/18/19 History tramadol [Ultram] 50 mg PO QID PRN #18 tab 12/26/18 02/18/19 Rx Patient History Medical History ASCVD (arteriosclerotic cardiovascular disease) Anxiety BPH (benign prostatic hyperplasia) CAD (coronary artery disease) Cancer SMALL B-CELL LYMPHOMA CHRONIC LYMPHOCYCTIC LEUKEMIA Chronic obstructive pulmonary disease GERD (gastroesophageal reflux disease) Hyperlipidemia Hypertension Migraine HX Osteoarthritis Post traumatic stress disorder SOB (shortness of breath) on exertion Surgical History Encounter for biopsy AXILLARY H/O cervical spine surgery PLATES AND SCREWS History of bronchoscopy History of colonoscopy History of lung surgery LEFT WEDGE RESECTION History of tonsillectomy History of tooth extraction Ulnar nerve entrapment SURGERY R/L Social History Communication Ability: Effective Beliefs That Will Affect Care: None marital status: Current Living Situation: Spouse Other Information That Helps Us Care for You: No Feels Safe at Home: Yes Safety Concerns: Feels Safe At This Time Smoking Status: Current every day smoker (STARTED AT 17 YEARS OLD) Hx Alcohol Use: Yes Hx Substance Use: No Review of Systems Unable to be obtained due to intubation Physical Exam Vital Signs (Past 24 Hours): Last Vital Signs Temp 37.7 C H 03/05/19 04:00 Pulse 119 H 03/05/19 08:25 Resp 33 H 03/05/19 08:25 BP 104/57 L 03/05/19 06:00 Pulse Ox 94 03/05/19 08:25 Constitutional: + thin and + cachectic Eyes: PERRL, conjunctivae normal, anicteric sclerae Neck: normal visual inspection Respiratory: Mechanically ventilated Cardiovascular: Rate/Rhythm: regular rate Gastrointestinal (Abdomen): Enlarged liver; non-tender, normoactive bowel sounds Musculoskeletal: no cyanosis or clubbing, extremities motor strength 5/5 Skin: no rashes, warm and dry Psychiatric: Orientation: alert and oriented x 3
[2019-03-05] MEDS ORDERED: IOVERSOL 100ml IV PRN (12:58)
--- NOTE | 2019-03-05 13:28 | CT Scan Report ---
CT abdomen oral and IV con CLINICAL HISTORY: 69 years-old Male presenting with hepatomegaly, assess GI anatomy, shingles, r/o as cites, history of SLL. TECHNIQUE: Multidetector CT of the abdomen was performed after the administration of oral and intrave nous contrast. IV contrast: 94 mL of Optiray 320. One or more dose lowering techniques were used cons istent with the principles of ALARA (as low as reasonably achievable), including automatic exposure c ontrol, mA or kV adjustment to individual patient size, and/or use of iterative reconstruction. COMPARISON: 11/30/2017. CT DOSE (mGy.cm): The estimated cumulative dose is 543.86 mGycm. FINDINGS: Public Health Microbiologist topogram: Weighted feeding catheter projects over the gastric fundus. Numerous external leads a nd support devices. Temperature probe projects over the pelvis. Lung bases: Multichamber enlargement of the heart. Coronary artery and aortic valve calcification. Tr kushal left pleural effusion. Left pleural drain in place within the posterior pleural space, terminus n ot included within the [id number]. Additional left pleural drain within the anterior left pneumoth orax. These are new from prior. Extensive bibasilar consolidation greater on the right, which is larg sadie new from prior and has a significant peribronchovascular component. Diffuse added density of the lungs new from prior. Solid peripheral polygonal right middle lobe nodule measuring 4 mm (series 3 im age 9), unchanged. Interlobular septal thickening. Liver: Mildly enlarged measuring 19.4 cm in maximal sagittal dimension. Few subcentimeter hypodensiti es likely hepatic cysts or hamartomas. Patent hepatic vasculature. Biliary: Mild central intrahepatic bladder ductal dilatation. No extra hepatic biliary ductal dilatat ion. Normal gallbladder. Pancreas: Normal. Spleen: Normal. Adrenal glands: Normal. Kidneys and ureters: Renal parenchyma normal. Mild pelviectasis and subtle urothelial thickening sugg ested. No nephrolithiasis or hydronephrosis. Bowel: Weighted feeding catheter terminates in the gastric fundus. No bowel obstruction. Moderate sto ol burden in the visualized portion of the colon, which is mildly distended. No suspicious gastric wa ll thickening on the current exam. Peritoneal cavity: No free fluid or intraperitoneal gas. Lymph nodes: Interval worsening of confluence retroperitoneal lymphadenopathy in the periaortic regio ns. There is also been worsening of lymphadenopathy in the portacaval and steve hepatal regions. Vasculature: Atherosclerosis of the normal caliber abdominal aorta. IVC patent. Abdominal wall: Mild body wall edema. Musculoskeletal: Degenerative changes of the spine. IMPRESSION: 1. Interval worsening of retroperitoneal and upper abdominal lymphadenopathy indicative of progressi on of disease. 2. No evidence of gastric wall thickening on the current exam. This is likely due to underdistention on prior examinations. 3. Mild hepatomegaly. No spinal megaly. 4. Urothelial thickening as on prior exam or this could represent chronic reflux uropathy or other c hronic inflammatory change. 5. Weighted feeding catheter in the gastric fundus. 6. Interval development of congestive change and developing pulmonary edema. Superimposed peribronch ovascular and dependent consolidation greatest in the right lower lobe concerning for aspiration. Electronically signed by: Enio Trejo M.D. 03/05/2019 1:26 PM
[2019-03-05] MEDS: PEPTAMEN INTENSE VHP 1.0 CAL 1,000 ML BAG GT PRN (13:47)
--- NOTE | 2019-03-05 14:30 | Progress Note ---
DATE: 03/05/2019 Mr. Lomas was seen today on 03/05/2019 and evaluated today. He has a very small air leak and essentially no drainage from his chest tube. His chest x-ray is unchanged. He does have a space in the superior aspect of his left pleural cavity. The patient has what appears to be active shingles. In addition, he has had some fevers, which may be related to this. He certainly does not have purulent material coming from his chest tube. The patient I think would benefit from a PEG tube as well as a tracheostomy. I believe this patient would be a good candidate for LTAC. He is going to need to do a CT of his abdomen to make sure that he is a candidate for PEG. Otherwise, we will continue with aggressive management as we are doing now and plan on a tracheostomy in the near future.
[2019-03-05] MEDS: PRAZOSIN HCL 1 MG CAP PO SCH (20:09)
[2019-03-05] MEDS: AMLODIPINE BESYLATE 5 MG TAB PO SCH (20:09)
[2019-03-06] MEDS: fentaNYL citrate 100 MCG/2 ML VIAL IV PRN ×9 (02:29→22:20)
[2019-03-06] MEDS: MIDAZOLAM HCL 1 MG/ML 2ML VIAL IV PRN ×4 (03:22→21:26)
[2019-03-06] MEDS: ALBUT/IPRATROP 3MG/0.5MG NEB 3 ML VIAL NEB SCH ×7 (03:25→23:13)
[2019-03-06 04:53] LABS: Basophils # (auto) 0.06 K/uL (0-0.2); Basophils % (auto) 0.4 %; Eosinophils # (auto) 0.37 K/uL (0-0.5); Eosinophils % (auto) 2.3 %; Hematocrit (blood only) 29.2 % (42-52); Hemoglobin 8.8 g/dL (14.0-18.0); Immature Granulocytes % (auto) 1.2 %; Lymphocytes # (auto) 3.24 K/uL (1.2-3.4); Lymphocytes % (auto) 19.9 %; Mean Corpuscular Hgb Conc 30.1 g/dL (32-36); Mean Corpuscular Volume 85.1 fL (80-100); Mean Platelet Volume 9.9 fL (7.4-10.4); Monocytes # (auto) 0.92 K/uL (0.11-0.59); Monocytes % (auto) 5.6 %; Neutrophils # (auto) 11.52 K/uL (1.4-6.5); Neutrophils % (auto) 70.6 %; Platelet Count 840 K/uL (130-400); RDW Coefficient of Variation 17.4 % (11.5-14.5); RDW Standard Deviation 54.1 fL (36.4-46.3); Red Blood Count 3.43 M/uL (4.7-6.1); White Blood Count 16.31 K/uL (4.8-10.8)
[2019-03-06 05:12] LABS: BUN Creatinine Ratio 90.9 (10-20); Calcium 8.4 mg/dl (8.5-10.1); Creatinine Clr Calc Pharmacy 150.5 ml/min; Est GFR (Non-African American) 120.8; Magnesium 2.3 mg/dl (1.8-2.4); Phosphorus 3.3 mg/dl (2.5-4.9); Potassium 3.7 mmol/L (3.5-5.1)
[2019-03-06] MEDS: ACYCLOVIR 400 MG TAB PO SCH ×5 (06:35→19:12)
--- NOTE | 2019-03-06 07:01 | XRay Report ---
XR chest 1V portable HISTORY: 69 years-old Male VDRF follow-up study in a patient with prior surgery COMPARISON: Chest radiograph 03/05/2019, CT abdomen and pelvis 03/05/2019 TECHNIQUE: Portable AP view of the chest FINDINGS: Endotracheal tube overlies the midline, 3.6 cm superior to the eris. Enteric tube is unchanged. Sta ble positioning of the 2 left-sided chest tubes with stable left hydropneumothorax. Bilateral interst itial opacities are unchanged. No overt pulmonary edema. Emphysema with trace right pleural effusion. Heart is normal in size. Fusion hardware of the cervical spine. IMPRESSION: 1. Stable exam with lines and tubes as above. 2. Unchanged moderate left hydropneumothorax. The above report was generated using voice recognition software. It may contain grammatical, syntax o r spelling errors. Electronically signed by: Khoa Garcia M.D. 03/06/2019 7:00 AM
--- NOTE | 2019-03-06 07:02 | Critical Care Progress Note ---
Date of Service March 06, 2019 Assessment & Plan (1) Admitted to intensive care unit: (2) Lung malignancy: Reason Critically Ill: 69-year-old male here for hypoxia s/p left upper lobectomy with chest tube. Past medical history significant for EtOH abuse, BPH, CAD, COPD, Lung Malignancy, Gerd Neuro: -[facility] ICU: POSITIVE hypoactive delrium -Intermittent bolus sedation -EtOH abuse 18 beers a day/ outside window for EtOH withdrawal syx Cardiac: -CAD: asprin, lipitor -HTN: Norvasc Respiratory: -POD 15 S/P left upper lobectomy with chest tube on 02/18 for resection of small cell lung ca -COPD -with impaction, hypoxia, hypercarbia -Failed multiple extubation attempts -Planned trach placement today -peg will be preformed after transfer GI: -Planned Peg tube placement at outside facility -Tube Feeding diet at goal 65 -On H2 david for ppx as ppi is on backorder -Constipation resolved ->hold laxatives RENAL/LYTES: -No significant electrolyte derangement. -Replace lytes as needed. -continue to trend BMP ENDO: -Icu Hyperglycemic protocol HEME: -HGB stable -anemia: Iron with vit c Integumentary: -Sacral ulcers consistent with decubiti possibly 2/2 to zoster outbreak -MVI with zinc Cx wound care -Hip, Midback, and scapular ulcers are more consistent with zoster ulcers ID: - Zoster outbreak yesterday -Acyclovir q5xday, hold atorvastatin while on acyclovir given elevated LFT -Per family outbreaks occur when pt is stressed -Febrile -Per family pt always becomes febrile during zoster outbreaks -Cooling blanket prn -PNA completed 7 day course of Levaquin and Cefepime -Monitor fever curve. -afebrile since yesterday -Cx NGTD LINES/IV ACCESS: -PIVs intact. -Shafer, NG, ETT, Chest tube, pleurex cath, rectal tube DVT PROPHYLAXIS: -SCDS, lovenox -4/8 duplex u/s negative Dispo:pending trach today will tx to outside facility Thank you for allowing us to be part of this patient's care. Please refer to Dr. Virk's documentation for any further recommendations. Supervising Physician Co-Signing Physician Notes Dr. Nguyen was resident physician during care of patient. I separately evaluated patient for william portions of the history and the exam. I was present during the critical portion of medical decision making, and I discussed the case with the resident. I generally agree with the findings and plan. Lung malignancy: Reason Critically Ill: 69-year-old male status post left upper lobectomy w/ chest tube on 02/18 who became hypoxic. Neuro - ICU sedation -Transitioned to intermittent bolus sedation [facility] ICU positive -Hypoactive delirium EtOH abusereportedly drinks 18 beers per day -Would likely be outside of window given sedation history Cardiac - CADcontinue aspirin, Lipitor HTNcontinue Norvasc Respiratory - lung cancerstatus post left upper lobectomy with chest tube 02/18 -Left chest tube with air leak COPD/mucoid impaction/hypercarbichypoxic respiratory failure/pneumonia: -Patient has failed multiple extubation attempts -Will undergo tracheostomy today -Deferring PEG tube to subacute rehab facility GI GERDconversion to H2 secondary to medication shortage -Continue tube feedings: Running at goal 65 Constipation: Resolved - hold laxatives today RENAL/LYTES - Routine BMPs, maximize electrolytes and replete as necessary - BPHdiscontinue Shafer ENDO - No history diabetes, ICU hyperglycemic protocol HEME - Anemia: Acute blood loss -Iron with vitamin C Decubiti: Possibly related to herpes zoster -Wound nurse consult: Lesions on right sacrum are consistent with decubiti -Multivitamin with zinc -Lesions on left shoulder, left flank, left hip are most consistent with zoster and not decubiti ID - Moraxella pneumonia -Levaquin, finished 7-day course -Finished cefepime: 7-day course Febrile illness: Resolved for 24 hours -Repeat blood cultures sent including fungal blood culture 03/03: No growth to date -Pro-calcitonin: 0.06 effectively negative Herpes zoster: Decubiti might not be actual decubiti versus skin breakdown from zoster breakout -Acyclovir 5 times daily -Holding the atorvastatin while on acyclovir LINES/IV ACCESS - Peripheral IVs, core safe NG tube, ETT, chest tube, Pleurx cath DVT PROPHYLAXIS - SCDs, Lovenox -Bilateral venous duplex negative 03/03 Patient was discussed in multidisciplinary rounds, I discussed the patient with Dr. Myers. Plan percutaneous tracheostomy at bedside today at approximately 2 PM I have personally spent 40 minutes of critical care time in the direct management of this patient. This is a life/limb threatening event. This includes time spent evaluating patient, direct bedside care, chart review, placing orders, interpretation of diagnostic studies, discussion with consultants, patient, and/or family members regarding treatment decisions, as well as other required patient management activities. This time is exclusive of all separately billable procedures, and teaching time and separate from and in addition to any other critical care service time. Subjective Pt laying in bed, alert and intubated. plan to place trach today. No acute concerns from nursing. Pt has been hypertensive likely 2/2 to agitation. Physical Exam Vital Signs (Past 24 Hours): Last Vital Signs Temp 37 C 03/06/19 04:00 Pulse 112 H 03/06/19 05:55 Resp 26 H 03/06/19 05:55 BP 105/53 L 03/06/19 05:00 Pulse Ox 95 03/06/19 05:55 Eyes: PERRL, conjunctivae normal, anicteric sclerae Neck: trachea midline, no thyromegaly normal visual inspection and + limited neck extension (Mild limitation with extension) Respiratory: Auscultation: + rhonchi and + wheezes Cardiovascular: RRR, no murmur, no edema Rate/Rhythm: regular rate and regular rhythm Heart Sounds: normal S1 and normal S2 Vessels: no JVD Extremities: no edema Gastrointestinal (Abdomen): normal bowel sounds, soft, nontender, no hepatosplenomegaly Skin: Sacral: decubiti B/L Hip: Zoster Lesions Midback: Zoster Lesions Left Scapular: Zoster lesions Resident Activity Tracking Resident Involvement: Resident Care Provided Care Provided: Adult Hospital Medicine (ICU)
[2019-03-06] MEDS: FOLIC ACID 1 MG TAB PO SCH (07:47)
[2019-03-06] MEDS: FAMOTIDINE 20 MG TAB PO SCH ×2 (07:48→20:39)
[2019-03-06] MEDS: MULTI VIT W/MINERALS LIQUID 15 ML UDP PO SCH (07:48)
[2019-03-06] MEDS: DOCUSATE SODIUM SYRUP 100 MG/10 ML UDC PO SCH ×2 (07:48→09:10)
[2019-03-06] MEDS: FERROUS SULFATE 325 MG/7.4 ML UDP NG SCH ×2 (07:48→20:40)
[2019-03-06] MEDS: ZINC SULFATE 220 MG CAPSULE GT SCH (07:49)
[2019-03-06] MEDS: ASCORBIC ACID 500 MG TAB NG SCH (07:49)
[2019-03-06] MEDS: LORATADINE 10 MG TAB PO SCH (07:50)
[2019-03-06] MEDS: PARoxetine HCl 20 MG TAB PO SCH (07:50)
[2019-03-06] MEDS: CALCIUM POLYCARBOPHIL 625MG TAB PO SCH (07:51)
[2019-03-06] MEDS: ENOXAPARIN INJ 40 MG/0.4 ML SYR SQ SCH (07:51)
[2019-03-06] MEDS: ASPIRIN 81 MG CHEW PO SCH (07:54)
[2019-03-06] MEDS: PEPTAMEN INTENSE VHP 1.0 CAL 1,000 ML BAG GT PRN (08:43)
[2019-03-06] MEDS ORDERED: LIDOCAINE/EPINE 2% 1:100,000 20ML INFIL ONE (09:07)
[2019-03-06] MEDS: POLYETHYLENE (MIRALAX) 17 GM PACK PO SCH ×2 (09:10→18:54)
[2019-03-06] MEDS ORDERED: MIDAZOLAM HCL 5 MG/ML 1 ML VIAL IV ONE (09:12)
[2019-03-06] MEDS ORDERED: fentaNYL citrate 100 MCG/2 ML VIAL IV ONE (09:12)
[2019-03-06] MEDS ORDERED: VECURONIUM BROMIDE 10 MG VIAL IV ONE (09:13)
[2019-03-06] MEDS ORDERED: fentaNYL citrate 100 MCG/2 ML VIAL ONE (12:51)
[2019-03-06] MEDS ORDERED: VECURONIUM BROMIDE 10 MG VIAL ONE (12:52)
[2019-03-06] MEDS ORDERED: MIDAZOLAM HCL 5 MG/ML 1 ML VIAL ONE (12:52)
--- NOTE | 2019-03-06 14:43 | Post Operative Brief Note ---
Immediate Post Op Note v1 Date of Surgery March 06, 2019 Procedure Bedside tracheostomy with Blue Rhino and bronchoscopic guidance Surgeon Co-surgeon: Jeremy Myers MD, FACS Co-surgeon: Dr. Austin Virk Copier Repair Technician Dr Jean Nguyen Estimated Blood Loss 3 Findings Consistent with Post-Op Diagnosis Drains Other (Tracheostomy tube)
--- NOTE | 2019-03-06 14:44 | Post Operative Brief Note ---
Immediate Post Op Note v1 Date of Surgery February 18, 2019 Pre & Post Diagnosis Operation Date: 02/18/19 07:30 Pre-Op Diagnosis: Non-small Cell Lung Cancer Post-Op Diagnosis: Non-small Cell Lung Cancer Procedure Operation Date: 02/18/19 07:30 Actual Procedures p Left Robotic Video Assisted Thoracoscopy with Left Upper Lobectomy and Mediastinal Lymphadenectomy, left lower lobe decortication(Left) - Jeremy Myers MD, FACS Surgeon Jeremy Myers MD, FACS Optical Instrument Repairer Cee Hernandez Estimated Blood Loss 500 Findings Consistent with Post-Op Diagnosis Drains Chest Tube, Shafer Catheter and PleurX Catheter
--- NOTE | 2019-03-06 15:21 | Operative Report ---
Post Operative Report Pre & Post Diagnosis Pre and Post-operative Diagnosis: Prolonged Ventilator Support Procedure Operation Date: 03/06/2019 Bedside tracheostomy with a blue Rhino. After appropriate consent had been obtained and the appropriate timeout of been called Dr. Austin Jacobson performed a fiberoptic bronchoscopy through the endotracheal tube. Please see his separate note only. Patient's neck was then prepped and draped in usual fashion was given appropriate sedation. 25-gauge needles and Xylocaine were used to excise skin and subtenons tissues over trachea which was easily palpated. A small incision was made transversely a finger breadth above the sternal notch. A larger needle was used to anesthetize the deeper tissues and the wall of the trachea. Under bronchoscopic control we saw the needle into the airway. A guidewire was inserted the needle needle removed. Dilator slid over this and then removed. The Blue Rhino was then guided over the wire to dilate up the tract. This was then removed and an obturator was placed through the Shiley tracheostomy tube and this was slid over the guidewire under bronchoscopic guidance into the trachea without difficulty. The balloon was then inflated. The bronchoscope was then placed through the tracheostomy tube and site was seen to be in good position with no significant bleeding. This was the inner cannula was then placed into the tracheostomy tube and attached to the ventilator. 0 Prolene was used on either side to anchor the tracheostomy tube to the patient's skin. He tolerated it quite well. We had very little in the way of bleeding. Surgeon Jeremy Myers MD, FACS Co- Surgeon: Dr Austin Virk Experimental Welder Jean Nguyen MD Estimated Blood Loss 3 Findings Consistent with Post-Op Diagnosis Specimens No specimens Description of Procedure See Procedure I attest to the content of the Intraoperative Record and any orders documented therein. Any exceptions are noted below.
--- NOTE | 2019-03-06 16:26 | Progress Note ---
DATE: 03/06/2019 Mr. Lomas was seen today. We are not going to be extubate him any time soon. We discussed this with the patient's family and the patient. We are going to proceed with a tracheostomy. We have him set up to go to a long-term vent facility for help in weaning. We will do the tracheostomy and get him set up for transfer tomorrow or the day after. NEFTALY
--- NOTE | 2019-03-06 18:49 | Procedure Note ---
Procedure Note: Bronchoscopy Procedure Procedure date: October 06, 2019 Procedure: fiberoptic bronchoscopy Pre-procedure indication: Bronchoscopic guidance for percutaneous tracheostomy Post-procedure Diagnosis: same as above Prior to Procedure: Informed Consent: The risks, benefits, indications, potential complications, and alternatives were explained to the patient's and informed consent obtained. Attending Staff: Laz Virk DO Resident/APC: Not applicable Skin Prep: Not applicable Anesthesia: 6 mg Versed, 200 mcg fentanyl, bis monitor reading less than 40 during procedure The identity of the patient was confirmed and a bedside time out was performed. Description of Procedure: Fiberoptic bronchoscopy was performed via endotracheal tube for localization during percutaneous tracheostomy. Once tracheostomy was completed I inserted the bronchoscope through the 6 oh Shiley and confirmed position of the tracheostomy and the trachea. Bronchioalveolar lavage of the right lower lobe was performed for thin mucoid secretions, the left lung was without secretions and the surgical site appeared well granulated. Findings included: Minimal oozing from the tracheostomy minimal secretion burden. Complications: None Specimens: None Estimated blood loss: Zero
[2019-03-06] MEDS: AMLODIPINE BESYLATE 5 MG TAB PO SCH (20:39)
[2019-03-06] MEDS: PRAZOSIN HCL 1 MG CAP PO SCH (20:39)
[2019-03-07] MEDS: fentaNYL citrate 100 MCG/2 ML VIAL IV PRN ×3 (00:29→10:40)
[2019-03-07] MEDS: ALBUT/IPRATROP 3MG/0.5MG NEB 3 ML VIAL NEB SCH ×2 (03:40→07:23)
[2019-03-07] MEDS: PEPTAMEN INTENSE VHP 1.0 CAL 1,000 ML BAG GT PRN (05:32)
--- NOTE | 2019-03-07 06:50 | Critical Care Progress Note ---
Date of Service March 07, 2019 Assessment & Plan (1) Admitted to intensive care unit: (2) Lung malignancy: Reason Critically Ill: 69-year-old male here for hypoxia s/p left upper lobectomy with chest tube. Past medical history significant for EtOH abuse, BPH, CAD, COPD, Lung Malignancy, Gerd Neuro: -[facility] ICU: POSITIVE hypoactive delrium -EtOH abuse 18 beers a day/ outside window for EtOH withdrawal syx -Largely outside withdrawal window, I doubt the patient is at continued risk for alcohol withdrawal Cardiac: -CAD: asprin, lipitor -HTN: Norvasc Respiratory: -POD 16 S/P left upper lobectomy with chest tube on 02/18 for resection of small cell lung -COPD -Acute on chronic respiratory failure -Failed multiple extubation attempts -Postop day 1 percutaneous tracheostomy -peg will be preformed after transfer GI: -Possible Peg tube placement at outside facility -Tube Feeding diet at goal 65 -On H2 david for ppx as ppi is on backorder -Constipation resolved ->hold laxatives RENAL/LYTES: -No significant electrolyte derangement. -Replace lytes as needed. -continue to trend BMP ENDO: -Icu Hyperglycemic protocol HEME: -HGB stable -anemia: Iron with vit c Integumentary: -Sacral ulcers consistent with decubiti possibly 2/2 to zoster outbreak -MVI with zinc -Cx wound care -Hip, Midback, and scapular ulcers are more consistent with zoster lesions -No new herpetic lesions, old hepatic lesions have opened and are not draining. ID: - Zoster -Acyclovir q5xday, hold atorvastatin while on acyclovir given elevated LFT -Per family outbreaks occur when pt is stressed -Day 4 of 7 -Febrile: Resolved -Per family pt always becomes febrile during zoster outbreaks -Blood culture fungal culture remains negative -PNA completed 7 day course of Levaquin and independent 7-day course of cefepime LINES/IV ACCESS: -PIVs intact. -Core safe, 6-0 Shiley, Chest tube, pleurex cath, rectal tube DVT PROPHYLAXIS: -SCDS, lovenox -4/8 duplex u/s negative Dispo:transfer to long-term vent rehab today Supervising Physician Co-Signing Physician Notes Dr. Nguyen was resident physician during care of patient. I separately evaluated patient for william portions of the history and the exam. I was present during the critical portion of medical decision making, and I discussed the case with the resident. I generally agree with the findings and plan. No new herpetic lesions, all drainage lesions have opened and are not draining, patient is afebrile, he can be taken out of airborne precautions and kept in contact precautions for zoster. Patient is likely stable for transfer to long-term rehabilitation facility for ventilator weaning. Subjective Pt laying in bed with trach in place. pt still delirious. No acute concerns, s/p trach placement. Plan to tx to [facility] today. Physical Exam Vital Signs (Past 24 Hours): Last Vital Signs Temp 37.5 C 03/07/19 05:00 Pulse 118 H 03/07/19 06:00 Resp 33 H 03/07/19 05:20 BP 110/56 L 03/07/19 06:00 Pulse Ox 97 03/07/19 06:00 Eyes: PERRL, conjunctivae normal, anicteric sclerae Neck: trachea midline, no thyromegaly normal visual inspection and + limited neck extension (Mild limitation with extension) Respiratory: Auscultation: + rhonchi and + wheezes Cardiovascular: RRR, no murmur, no edema Rate/Rhythm: regular rate and regular rhythm Heart Sounds: normal S1 and normal S2 Vessels: no JVD Extremities: no edema Gastrointestinal (Abdomen): normal bowel sounds, soft, nontender, no hepatosplenomegaly Skin: no rashes, warm and dry No new herpetic lesions, old hepatic lesions have opened and are not draining. Results & Data Laboratory Results 03/07/19 08:08 03/07/19 08:08 03/07/19 03/07/19 Range/Units 08:08 08:08 WBC 14.24 H (4.8-10.8) K/uL RBC 3.36 L (4.7-6.1) M/uL Hgb 8.6 L (14.0-18.0) g/dL Hct 28.6 L (42-52) % MCV 85.1 (80-100) fL MCH 25.6 (25-34) pg MCHC 30.1 L (32-36) g/dL RDW Std Deviation 55.1 H (36.4-46.3) fL RDW Coeff of Nguyen 17.9 H (11.5-14.5) % Plt Count 769 H (130-400) K/uL MPV 9.9 (7.4-10.4) fL Immature Gran % (Auto) 1.1 % Neut % (Auto) 71.8 % Lymph % (Auto) 18.3 % Jack % (Auto) 7.2 % Eos % (Auto) 1.2 % Baso % (Auto) 0.4 % Immature Gran # (Auto) 0.15 H (0.00-0.02) K/uL Neut # (Auto) 10.22 H (1.4-6.5) K/uL Lymph # (Auto) 2.61 (1.2-3.4) K/uL Jack # (Auto) 1.03 H (0.11-0.59) K/uL Eos # (Auto) 0.17 (0-0.5) K/uL Baso # (Auto) 0.06 (0-0.2) K/uL Sodium 147 H (136-145) mmol/L Potassium 4.0 (3.5-5.1) mmol/L Chloride 112 H (98-107) mmol/L Carbon Dioxide 28 (21-32) mmol/L Anion Gap 7.0 (3-11) BUN 34 H (7-18) mg/dl Creatinine 0.49 L (0.6-1.4) mg/dl Est Cr Clr Drug Dosing 125.5 ml/min Est GFR ( Amer) 130.1 Est GFR (Non-Af Amer) 112.3 BUN/Creatinine Ratio 70.0 H (10-20) Glucose 97 (70-99) mg/dl Calcium 9.0 (8.5-10.1) mg/dl Resident Activity Tracking Resident Involvement: Resident Care Provided Care Provided: Adult Hospital Medicine (ICU)
[2019-03-07 08:27] LABS: Basophils # (auto) 0.06 K/uL (0-0.2); Basophils % (auto) 0.4 %; Eosinophils # (auto) 0.17 K/uL (0-0.5); Eosinophils % (auto) 1.2 %; Hematocrit (blood only) 28.6 % (42-52); Hemoglobin 8.6 g/dL (14.0-18.0); Immature Granulocytes # (auto) 0.15 K/uL (0.00-0.02); Immature Granulocytes % (auto) 1.1 %; Lymphocytes # (auto) 2.61 K/uL (1.2-3.4); Lymphocytes % (auto) 18.3 %; Mean Corpuscular Hgb Conc 30.1 g/dL (32-36); Mean Corpuscular Volume 85.1 fL (80-100); Mean Platelet Volume 9.9 fL (7.4-10.4); Monocytes # (auto) 1.03 K/uL (0.11-0.59); Monocytes % (auto) 7.2 %; Neutrophils # (auto) 10.22 K/uL (1.4-6.5); Neutrophils % (auto) 71.8 %; Platelet Count 769 K/uL (130-400); RDW Coefficient of Variation 17.9 % (11.5-14.5); RDW Standard Deviation 55.1 fL (36.4-46.3); Red Blood Count 3.36 M/uL (4.7-6.1); White Blood Count 14.24 K/uL (4.8-10.8)
[2019-03-07 08:53] LABS: Creatinine Clr Calc Pharmacy 125.5 ml/min; Est GFR (African American) 130.1; Est GFR (Non-African American) 112.3
[2019-03-07] MEDS: PARoxetine HCl 20 MG TAB PO SCH (09:19)
[2019-03-07] MEDS: ASPIRIN 81 MG CHEW PO SCH (09:19)
[2019-03-07] MEDS: ASCORBIC ACID 500 MG TAB NG SCH (09:19)
[2019-03-07] MEDS: MULTI VIT W/MINERALS LIQUID 15 ML UDP PO SCH (09:19)
[2019-03-07] MEDS: FERROUS SULFATE 325 MG/7.4 ML UDP NG SCH (09:19)
[2019-03-07] MEDS: FAMOTIDINE 20 MG TAB PO SCH (09:19)
[2019-03-07] MEDS: ZINC SULFATE 220 MG CAPSULE GT SCH (09:19)
[2019-03-07] MEDS: CALCIUM POLYCARBOPHIL 625MG TAB PO SCH (09:20)
[2019-03-07] MEDS: ENOXAPARIN INJ 40 MG/0.4 ML SYR SQ SCH (09:21)
[2019-03-07] MEDS: ACYCLOVIR 400 MG TAB PO SCH (09:21)
[2019-03-07] MEDS: LORATADINE 10 MG TAB PO SCH (09:21)
[2019-03-07] MEDS: FOLIC ACID 1 MG TAB PO SCH (09:21)
[2019-03-07] MEDS: POLYETHYLENE (MIRALAX) 17 GM PACK PO SCH (09:23)
--- NOTE | 2019-03-08 02:34 | Discharge Summary ---
DISCHARGE DIAGNOSES: 1. Adenocarcinoma, left upper lobe. 2. History of heavy cigarette use. 3. Ventilator dependence. 4. Malnutrition. 5. History of alcohol abuse. 6. Active herpes zoster. HOSPITAL COURSE: Yordan Lomas is a 69-year-old heavy smoker that I met when he had a mass in his left lower lobe. On 02/04/2019, I performed a navigational bronchoscopy with indocyanine dye marking and did a wedge resection with frozen section which showed we had removed the cancer. He was a very difficult case. He had quite a bit of scarring and we had to take down quite a bit of adhesions. He did well with that, however, and was discharged home. While doing this case, he had an air leak in his left upper lobe along the fissure and I performed a wedge resection of this to control the air leak. I was surprised when the permanent sections of this came back as showing a [id number] lung carcinoma and the staple line was positive. I had a long talk with the patient and his in the office and we elected to proceed with a reoperation. It is very important to note this patient had some sort of inflammatory process in his left chest sometime in the past and he was extremely stuck, but I thought since we were going back fairly early, we would proceed with a resection without having to deal with too much in the way of adhesions. On 02/18/2019, I took the patient to the operating room and performed a robotic completion left upper lobectomy with mediastinal lymph node dissection. I also decorticated his left lower lobe. This did not expand well. We were in the hospital for an extended period of time and we finally felt he had an air leak and it was difficult. At any rate, the patient initially was extubated and did well; however, he subsequently developed respiratory insufficiency and we had to intubate him. We bronchoscoped him several times and cleaned out sputum which he simply could not cough up. We attempted to extubate him several times and used BiPAP. We kept having to reintubate him. His lung did not expand. He has a space problem in his left chest. He also has an air leak, although it is not a large leak and he is draining very little fluid. However, he has had multiple issues. One issue is an outbreak of active herpes zoster and apparently his family states that he gets this fairly frequently. We have also kept him sedated and he did not appear to go through alcohol withdrawal. He has been tolerating tube feeds. We performed a tracheostomy on him. GI saw him about a possible PEG tube, but did not feel that he would be a good candidate for a PEG. It is also very important to note this patient has lymphoma. This is a small cell lymphoma which has not been treated that we have known about for many years. In fact, I performed a video mediastinoscopy before offering this patient surgery and his nodes in his mediastinum showed no evidence of metastatic carcinoma, but he did have this lymphoma. This case was discussed in our multidisciplinary conference on more than one occasion. The patient was finally accepted at an LTAC facility in [place], [place]. We will be following him from afar. As stated, he has been tolerating his tube feedings. He has had edema of his upper and lower extremities which is improved. He also has the herpes zoster. A recent CT scan showed that he does have an infiltrative process in his right lower lobe with a very small effusion on the left. The unfilled space in his left upper chest is going to present a problem. I have explained to the patient and his that my hope would be to get him off of the ventilator and get his chest tube out; however, should he develop an empyema or other issue with this, that he may require a thoracoplasty/muscle flap or omental flap. In the meantime, he will be transferred to the LTAC and I will follow him back up in 3 weeks.
== END 2019-03-07 11:07 | DRG 3 ==
LOC: ASU 06:00 → 2E 17:09 → 1E 02-19 16:08